=== PATIENT | female | born 1940 | race Caucasian/White ===

== ENCOUNTER 2020-06-12 11:43 | Outpatient (REF) | payer MEDICARE, SELFPAY | END 2020-06-12 11:44 | disposition home or self-care (01) | LOC: HO.LNP 11:43 | PROVIDERS: Visit Provider Nurse Practitioner Family | DX: R30.0 Dysuria (principal) | CPT/HCPCS: 87086 ==

== ENCOUNTER 2020-07-23 08:45 | Outpatient (REF) | payer MEDICARE, SELFPAY ==
[2020-07-23 11:44] LABS: Alanine Aminotransferase 9 U/L (0-31); Albumin Level 4.4 g/dL (3.5-5.0); Alkaline Phosphatase 75 U/L (39-117); Anion Gap 14 (12-20); Aspartate Amino Transferase 20 U/L (5-31); Bilirubin Total 0.7 mg/dL (0.0-1.0); Blood Urea Nitrogen 26 mg/dL (9-16); Calcium 9.8 mg/dL (8.4-10.2); Carbon Dioxide 23 mmol/L (22-29); Chloride 102 mmol/L (96-108); Estimated Glomerular Filt Rate 59; Glucose Random 104 mg/dL (60-115); Potassium 4.5 mmol/l (3.3-5.1); Sodium 134 mmol/L (135-145); Total Protein 8.1 g/dL (6.5-8.0)
[2020-07-23 12:06] LABS: Estimated Average Glucose 143 mg/dL; Hemoglobin A1c % 6.6 %
[2020-07-23 12:07] LABS: TSH reflex Free T4 1.96 mIU/mL (0.32-4.0)
== END 2020-07-23 08:46 | disposition home or self-care (01) ==
LOC: HO.HMGCLDS 08:45
PROVIDERS: PCP Internal Medicine; Visit Provider Internal Medicine
DX: R30.0 Dysuria (principal)
CPT/HCPCS: 80053; 83036; 84443

== ENCOUNTER 2020-07-28 10:48 | Outpatient (REF) | payer MEDICARE, SELFPAY ==
--- NOTE | 2020-07-28 | MM_ITS ---
EXAMINATION: MM DIAGNOSTIC DIGITAL BREAST TOMOSYNTHESIS, BILATERAL US DIAGNOSTIC ULTRASOUND BREAST, RIGHT CLINICAL INFORMATION: Due for yearly exam. Probable benign small septated cyst anterior right breast for follow-up. Age 80. No known family history breast cancer. The lifetime risk of breast cancer based on the Tyrer-Cuzick Model is 2%. COMPARISON: Mammography: 07/23/2019, 01/18/2019, 07/20/2018 (BI-RADS 0), 07/14/2017; targeted right breast ultrasound 08/01/2018, 01/18/2019, 07/23/2019. TECHNIQUE: Digital breast tomosynthesis is performed in both the craniocaudal and mediolateral oblique views along with computer-aided detection (CAD). Synthesized 2D images are generated from the tomosynthesis. Additional bilateral CC views are provided. Ultrasound right breast is targeted to the anterior upper outer breast. Grayscale imaging and color Doppler are performed without and with harmonics. FINDINGS: There are scattered areas of fibroglandular density (ACR BI-RADS breast composition Category b). Breast tissue composition borders on predominantly fatty. There is no developing density or interval mass or architectural abnormality. Small nodule anterior lateral right breast is stable since 2017. There are no abnormal calcifications. The skin contours are smooth. Ultrasound right breast shows small benign cyst with fine avascular internal septation measuring under 5 mm. There is no interval solid component or color flow. Finding is now considered benign. Results are discussed with the patient at time of visit. MM/MM tomosynthesis diagnostic BI IMPRESSION: 1. No mammographic evidence of malignancy. No significant changes from prior studies. 2. Small septated cyst anterior right breast under 5 mm, stable and considered benign. ASSESSMENT: BI-RADS 2: Benign RECOMMENDATION: Routine annual mammography screening. This patient's information was entered into a reminder system with a target due date for their next mammogram.
== END 2020-07-28 10:49 | disposition home or self-care (01) ==
LOC: HO.MAMMO 10:48
PROVIDERS: PCP Internal Medicine; Visit Provider Internal Medicine
DX: N63.11 Unspecified lump in the right breast, upper outer quadrant (principal); N60.01 Solitary cyst of right breast
CPT/HCPCS: 76642; 77062; 77066

== ENCOUNTER 2020-11-12 09:19 | Outpatient (REF) | payer MEDICARE, SELFPAY ==
[2020-11-12 11:42] LABS: Alanine Aminotransferase 11 U/L (0-31); Albumin Level 4.5 g/dL (3.5-5.0); Alkaline Phosphatase 74 U/L (39-117); Anion Gap 16 (12-20); Aspartate Amino Transferase 21 U/L (5-31); Bilirubin Total 0.6 mg/dL (0.0-1.0); Blood Urea Nitrogen 23 mg/dL (9-16); Calcium 9.9 mg/dL (8.4-10.2); Carbon Dioxide 24 mmol/L (22-29); Chloride 103 mmol/L (96-108); Estimated Glomerular Filt Rate > 60; Glucose Fasting 111 mg/dL (60-99); Potassium 4.6 mmol/L (3.3-5.1); Sodium 138 mmol/L (135-145); Total Protein 8.2 g/dL (6.5-8.0)
[2020-11-12 12:02] LABS: Vitamin D 25-OH Total 39.6 ng/mL (>30)
== END 2020-11-12 09:20 | disposition home or self-care (01) ==
LOC: HO.HMGCLDS 09:19
PROVIDERS: PCP Internal Medicine; Visit Provider Internal Medicine Endocrinology, Diabetes & Metabolism
DX: M81.6 Localized osteoporosis [Lequesne] (principal)
CPT/HCPCS: 36415; 80053; 82306

== ENCOUNTER 2020-11-13 | Outpatient (REF) | payer MEDICARE, SELFPAY ==
[2020-11-18 21:51] LABS: N-Telopeptide 19 (see note); NTXCreaRU 48 mg/dL (20-275)
== END 2020-11-13 00:01 | disposition home or self-care (01) ==
LOC: HO.HMGCLNP
PROVIDERS: Visit Provider Internal Medicine Endocrinology, Diabetes & Metabolism
DX: M81.6 Localized osteoporosis [Lequesne] (principal)
CPT/HCPCS: 82523

== ENCOUNTER → 2020-11-21 08:39 | Outpatient (BNVA) | payer MEDICARE, SELFPAY | PROVIDERS: PCP Internal Medicine; Visit Provider Internal Medicine Endocrinology, Diabetes & Metabolism | DX: M81.0 Age-related osteoporosis without current pathological fracture (principal); E21.3 Hyperparathyroidism, unspecified | CPT/HCPCS: 99212 ==

== ENCOUNTER 2020-11-26 08:49 | Outpatient (REF) | payer MEDICARE, SELFPAY ==
[2020-11-26 11:46] LABS: Estimated Average Glucose 120 mg/dL; Hemoglobin A1c % 5.8 %
[2020-11-26 11:54] LABS: Creatinine Urine 100.68 mg/dL; Microalbum/Creatinine Ratio Ur 14.8 ug/mg cr
[2020-11-26 12:03] LABS: Alanine Aminotransferase 7 U/L (0-31); Albumin Level 4.5 g/dL (3.5-5.0); Alkaline Phosphatase 67 U/L (39-117); Anion Gap 19 (12-20); Aspartate Amino Transferase 22 U/L (5-31); Bilirubin Direct 0.3 mg/dL (0.0-0.5); Bilirubin Total 0.9 mg/dL (0.0-1.0); Blood Urea Nitrogen 25 mg/dL (9-16); Calcium 10.2 mg/dL (8.4-10.2); Carbon Dioxide 23 mmol/L (22-29); Chloride 102 mmol/L (96-108); Cholesterol 194 mg/dL; Estimated Glomerular Filt Rate > 60; Glucose Fasting 98 mg/dL (60-99); HDL Cholesterol 47 mg/dL; LDL Cholesterol Calculated 125 mg/dl; Potassium 4.6 mmol/L (3.3-5.1); Sodium 139 mmol/L (135-145); Total Protein 8.1 g/dL (6.5-8.0); Triglycerides 114 mg/dL
[2020-11-26 12:08] LABS: TSH reflex Free T4 1.74 uIU/mL (0.32-4.0)
== END 2020-11-26 08:50 | disposition home or self-care (01) ==
LOC: HO.HMGCLDS 08:49
PROVIDERS: PCP Internal Medicine; Visit Provider Internal Medicine
DX: E03.9 Hypothyroidism, unspecified (principal); E13.9 Other specified diabetes mellitus without complications; E78.9 Disorder of lipoprotein metabolism, unspecified; I10 Essential (primary) hypertension
CPT/HCPCS: 36415; 80048; 80061; 80076; 82043; 83036; 84443

== ENCOUNTER 2021-05-21 11:21 | Outpatient (REF) | payer MEDICARE, SELFPAY ==
[2021-05-21 14:26] LABS: Albumin Level 4.3 g/dL (3.5-5.0); Calcium 9.9 mg/dL (8.4-10.2)
[2021-05-21 14:42] LABS: Vitamin D 25-OH Total 34.8 ng/mL (>30)
[2021-05-25 14:02] LABS: Calcium (PTHI) 9.9 mg/dL (8.6-10.4); PTHI 90 pg/mL (14-64)
== END 2021-05-21 11:22 | disposition home or self-care (01) ==
LOC: HO.HMGCLDS 11:21
PROVIDERS: PCP Internal Medicine; Visit Provider Internal Medicine Endocrinology, Diabetes & Metabolism
DX: M81.0 Age-related osteoporosis without current pathological fracture (principal)
CPT/HCPCS: 36415; 82040; 82306; 82310; 83970

== ENCOUNTER 2021-05-22 | Outpatient (REF) | payer MEDICARE, SELFPAY ==
[2021-05-27 15:01] LABS: N-Telopeptide 11 (see note); NTXCreaRU 43 mg/dL (20-275)
== END 2021-05-22 00:01 | disposition home or self-care (01) ==
LOC: HO.HMGCLNP
PROVIDERS: Visit Provider Internal Medicine Endocrinology, Diabetes & Metabolism
DX: M81.0 Age-related osteoporosis without current pathological fracture (principal)
CPT/HCPCS: 82523

== ENCOUNTER 2021-06-10 07:47 | Outpatient (REF) | payer MEDICARE, SELFPAY ==
[2021-06-10 11:49] LABS: Alanine Aminotransferase 10 U/L (0-31); Albumin Level 4.4 g/dL (3.5-5.0); Alkaline Phosphatase 66 U/L (39-117); Anion Gap 14 (12-20); Aspartate Amino Transferase 22 U/L (5-31); Blood Urea Nitrogen 22 mg/dL (9-16); Calcium 10.1 mg/dL (8.4-10.2); Carbon Dioxide 25 mmol/L (22-29); Chloride 106 mmol/L (96-108); Estimated Glomerular Filt Rate 56; Glucose Random 106 mg/dL (60-115); Potassium 5.2 mmol/L (3.3-5.1); Sodium 140 mmol/L (135-145); Total Protein 8.1 g/dL (6.5-8.0)
[2021-06-10 12:05] LABS: Creatinine Urine 65.89 mg/dL; Microalbum/Creatinine Ratio Ur 12.1 ug/mg cr
[2021-06-10 12:11] LABS: TSH reflex Free T4 3.05 uIU/mL (0.32-4.0)
[2021-06-10 12:21] LABS: Estimated Average Glucose 111 mg/dL; Hemoglobin A1c % 5.5 %
== END 2021-06-10 07:48 | disposition home or self-care (01) ==
LOC: HO.HMGCLDS 07:47
PROVIDERS: PCP Internal Medicine; Visit Provider Internal Medicine
DX: E03.9 Hypothyroidism, unspecified (principal); R03.0 Elevated blood-pressure reading, without diagnosis of hypertension; E13.9 Other specified diabetes mellitus without complications; R30.0 Dysuria
CPT/HCPCS: 36415; 80053; 82043; 83036; 84443; 87086

== ENCOUNTER 2021-08-05 07:41 | Outpatient (REF) | payer MEDICARE, SELFPAY ==
[2021-08-05 11:52] LABS: Alanine Aminotransferase 10 U/L (0-31); Albumin Level 4.4 g/dL (3.5-5.0); Alkaline Phosphatase 74 U/L (39-117); Anion Gap 18 (12-20); Aspartate Amino Transferase 24 U/L (5-31); Bilirubin Total 0.6 mg/dL (0.0-1.0); Blood Urea Nitrogen 27 mg/dL (9-16); Calcium 10.3 mg/dL (8.4-10.2); Carbon Dioxide 21 mmol/L (22-29); Chloride 104 mmol/L (96-108); Estimated Glomerular Filt Rate 53; Glucose Random 118 mg/dL (60-115); Potassium 5.1 mmol/L (3.3-5.1); Sodium 138 mmol/L (135-145); Total Protein 8.2 g/dL (6.5-8.0)
== END 2021-08-05 07:42 | disposition home or self-care (01) ==
LOC: HO.HMGCLDS 07:41
PROVIDERS: PCP Internal Medicine; Visit Provider Internal Medicine
DX: M81.0 Age-related osteoporosis without current pathological fracture (principal); E21.3 Hyperparathyroidism, unspecified; E55.9 Vitamin D deficiency, unspecified
CPT/HCPCS: 36415; 80053; 99212

== ENCOUNTER 2021-08-12 10:30 | Outpatient (REF) | payer MEDICARE, SELFPAY ==
--- NOTE | ~2021-08-12 | MM_ITS ---
EXAMINATION: MM SCREENING DIGITAL BREAST TOMOSYNTHESIS, BILATERAL CLINICAL INFORMATION: Screening. Asymptomatic. The lifetime risk of breast cancer based on the Tyrer-Cuzick Model is 1.1%. COMPARISON: Mammography: July 28, 2020 and studies dating back to June 19, 2012 TECHNIQUE: Digital breast tomosynthesis is performed in both the craniocaudal and mediolateral oblique views along with computer-aided detection (CAD). Synthesized 2D images are generated from the tomosynthesis. FINDINGS: There are scattered areas of fibroglandular density (ACR BI-RADS breast composition Category b). There are no significant masses, abnormal calcifications, or other abnormalities. MM/MM tomosynthesis screening BI IMPRESSION: There are no significant changes from prior study. ASSESSMENT: BI-RADS 1: Negative RECOMMENDATION: Routine annual mammography screening. This patient's information was entered into a reminder system with a target due date for their next mammogram.
== END 2021-08-12 10:31 | disposition home or self-care (01) ==
LOC: HO.MAMMO 10:30
PROVIDERS: Visit Provider Internal Medicine
DX: Z12.31 Encounter for screening mammogram for malignant neoplasm of breast (principal)
CPT/HCPCS: 77063; 77067

== ENCOUNTER 2021-10-14 07:59 | Outpatient (REF) | payer MEDICARE, SELFPAY ==
--- NOTE | ~2021-10-14 | MM_ITS ---
EXAMINATION: BONE DENSITOMETRY CLINICAL INDICATION: Hyperparathyroidism. COMPARISON: Previous BD dated 10/16/2019 and baseline BD dated 09/02/2009. TECHNIQUE: Using a [employer] DXA System (software version: 13.1) manufactured by [employer], dual-energy x-ray absorptiometry was performed of the lumbar spine, left hip, and left forearm radius 33%. The images are of good technical quality. Summary results are attached. FINDINGS: AP SPINE L1-L4: There is dextrocurvature lumbar spine and multilevel degenerative changes which may cause overestimation of the lumbar bone mineral density. Current: BMD 1.531 g/cm2, Z-score 4.8, T-score 2.9, normal, 0.8% decrease from previous, 8.0% increase from baseline (<5% change is not significant). Prior: BMD 1.543 g/cm2. Baseline: BMD 1.418 g/cm2. LEFT FEMUR, NECK: Current: BMD 0.853 g/cm2, Z-score 0.9, T-score -1.3, osteopenia. Prior: BMD 0.972 g/cm2. Baseline: BMD 0.872 g/cm2. LEFT FEMUR, TOTAL: Current: BMD 0.879 g/cm2, Z-score 1.0, T-score -1.0, normal, 15.2% decrease from previous, 16.4% decrease from baseline (<5% change is not significant). Prior: BMD 1.037 g/cm2. Baseline: BMD 1.051 g/cm2. LEFT FOREARM RADIUS 33%: BMD 0.686 g/cm2, Z-score 0.7, T-score -2.2, osteopenia, 0.4% increase from previous, 6.2% decrease from baseline (<5% change is not significant). Prior: BMD 0.683 g/cm2. Baseline 10/05/2013: BMD 0.731 g/cm2. IDENTIFIED RISK FACTORS: Menopause, height loss, hyperparathyroidism, osteoporosis. HISTORY OF FRACTURE: None listed. MEDICATIONS: Bisphosphonates. MM/XR DEXA appendicular skeleton IMPRESSION: 1. DIAGNOSIS: Osteopenia based on the lowest T-score value of -2.2 in the forearm radius 33% applying World Health Organization criteria. 2. 10-YEAR FRACTURE RISK PREDICTION, FRAX: Major osteoporotic fracture (clinical spine, forearm, hip or shoulder) 12.4%. Hip fracture 2.9%. 3. Treatment Recommendations: NOF guidelines recommend consideration for treatment in postmenopausal women and men age 50 and older presenting with the following: -A hip or vertebral (clinical or morphometric) fracture. -T-score less than or equal to -2.5 at the femoral neck or spine after appropriate evaluation to exclude secondary causes. -Low bone mass at the hip or spine and a 10-year fracture probability by FRAX of greater than or equal to 3% for hip fracture or greater than or equal to 20% for major osteoporotic fracture based on the [place] adapted WHO algorithm. 4. Other Recommendations: All treatment decisions require clinical judgment and consideration of individual patient factors, including patient preferences, comorbidities, previous drug use, risk factors not captured in the FRAX model (e.g. frailty, falls, vitamin D deficiency, increased bone turnover, interval significant decline in bone density) and possible under or overestimation of fracture risk by FRAX. Additional medical evaluation for secondary cause of low bone mineral density may be appropriate. FUTURE SCAN RECOMMENDATION: People with diagnosed cases of osteoporosis or at high risk for fracture should have regular bone mineral density tests. For patients eligible for Medicare, routine testing is allowed once every 2 years. The testing frequency can be increased to one year for patients who have rapidly progressing disease, those who are receiving or discontinuing medical therapy to restore bone mass, or have additional risk factors.
== END 2021-10-14 08:00 | disposition home or self-care (01) ==
LOC: HO.MAMMO 07:59
PROVIDERS: Visit Provider Internal Medicine
DX: Z13.820 Encounter for screening for osteoporosis (principal); E21.3 Hyperparathyroidism, unspecified; M85.80 Other specified disorders of bone density and structure, unspecified site; Z78.0 Asymptomatic menopausal state; Z79.899 Other long term (current) drug therapy
CPT/HCPCS: 77081

== ENCOUNTER 2021-11-13 09:12 | Outpatient (REF) | payer MEDICARE, SELFPAY ==
[2021-11-13 11:37] LABS: MANUAL DIFF FLAG NO
[2021-11-13 11:48] LABS: Basophils Percent Auto 0.4 % (0-2); Eosinophils Absolute Auto 0.3 X10*3/uL (0.0-0.4); Eosinophils Percent Auto 2.8 % (0-4); Hematocrit 43.6 % (37.0-47.0); Hemoglobin 13.6 g/dl (12.0-16.0); Imm Gran Abs Auto 0.03 X10*3/uL (0.00-0.03); Imm Gran Pct Auto 0.3 % (0.0-0.4); Lymphocytes Absolute Auto 4.1 X10*3/uL (1.2-4.9); Lymphocytes Percent Auto 45.1 % (20-40); Mean Corpuscular HGB Conc 31.2 g/dl (31.0-35.0); Mean Corpuscular Hemoglobin 28.1 pg (27.0-33.0); Mean Corpuscular Volume 90.1 fL (80.0-98.0); Mean Platelet Volume 10.5 fL (9.4-12.3); Monocytes Absolute Auto 0.9 X10*3/uL (0.1-1.2); Monocytes Percent Auto 9.5 % (2-11); Neutrophils Absolute Auto 3.8 x10*3/uL (2.0-8.3); Neutrophils Percent Auto 41.9 % (45-73); Platelet Count 287 X10*3/uL (160-400); Red Blood Count 4.84 X10*6/uL (4.20-5.50); Red Cell Distribution Width 13.2 % (11.0-16.0)
[2021-11-13 12:20] LABS: Alanine Aminotransferase 7 U/L (0-31); Albumin Level 4.4 g/dL (3.5-5.0); Alkaline Phosphatase 66 U/L (39-117); Anion Gap 16 (12-20); Aspartate Amino Transferase 25 U/L (5-31); Blood Urea Nitrogen 25 mg/dL (9-16); Calcium 10.6 mg/dL (8.4-10.2); Carbon Dioxide 23 mmol/L (22-29); Chloride 105 mmol/L (96-108); Estimated Glomerular Filt Rate 58; Glucose Random 98 mg/dL (60-115); Potassium 5.3 mmol/L (3.3-5.1); Sodium 139 mmol/L (135-145); Total Protein 8.2 g/dL (6.5-8.0)
[2021-11-13 12:36] LABS: Estimated Average Glucose 120 mg/dL; Hemoglobin A1c % 5.8 %
[2021-11-13 12:43] LABS: TSH reflex Free T4 2.04 uIU/mL (0.32-4.0)
[2021-11-14 16:20] LABS: LDL Cholesterol Direct 143 mg/dL (<100)
== END 2021-11-13 09:13 | disposition home or self-care (01) ==
LOC: HO.HMGCLDS 09:12
PROVIDERS: PCP Internal Medicine; Visit Provider Internal Medicine
DX: E03.9 Hypothyroidism, unspecified (principal); E13.9 Other specified diabetes mellitus without complications; E78.9 Disorder of lipoprotein metabolism, unspecified; I10 Essential (primary) hypertension
CPT/HCPCS: 36415; 80053; 83036; 83721; 84443; 85025

== ENCOUNTER 2021-11-14 06:43 | Outpatient (REF) | payer MEDICARE, SELFPAY ==
[2021-11-14 11:44] LABS: Creatinine Urine 39.74 mg/dL; Microalbum/Creatinine Ratio Ur 42.7 ug/mg cr
[2021-11-20 09:51] LABS: N-Telopeptide 11 (see note); NTXCreaRU 43 mg/dL (20-275)
== END 2021-11-14 06:44 | disposition home or self-care (01) ==
LOC: HO.HMGCLNP 06:43
PROVIDERS: Internal Medicine; Visit Provider Internal Medicine
DX: E03.9 Hypothyroidism, unspecified (principal); E13.9 Other specified diabetes mellitus without complications; E78.9 Disorder of lipoprotein metabolism, unspecified; I10 Essential (primary) hypertension; M81.0 Age-related osteoporosis without current pathological fracture
CPT/HCPCS: 82043; 82523

== ENCOUNTER 2022-01-29 06:45 | Outpatient (REF) | payer MEDICARE, SELFPAY ==
[2022-01-29 12:02] LABS: Estimated Average Glucose 117 mg/dL; Hemoglobin A1c % 5.7 %
[2022-01-29 12:07] LABS: Vitamin D 25-OH Total 32.9 ng/mL (>30)
[2022-01-29 12:10] LABS: Alanine Aminotransferase 11 U/L (0-31); Albumin Level 4.3 g/dL (3.5-5.0); Alkaline Phosphatase 68 U/L (39-117); Anion Gap 13 (12-20); Aspartate Amino Transferase 24 U/L (5-31); Bilirubin Total 0.8 mg/dL (0.0-1.0); Blood Urea Nitrogen 25 mg/dL (9-16); Calcium 10.5 mg/dL (8.4-10.2); Carbon Dioxide 24 mmol/L (22-29); Chloride 105 mmol/L (96-108); Estimated Glomerular Filt Rate 56; Glucose Random 108 mg/dL (60-115); Phosphorus 3.8 mg/dL (2.7-4.5); Potassium 4.8 mmol/L (3.3-5.1); Sodium 137 mmol/L (135-145); Total Protein 8.1 g/dL (6.5-8.0)
[2022-02-02 11:12] LABS: Alkaline Phosphatase Bone 8.6 mcg/L (see note)
[2022-02-03 22:31] LABS: Calcium (PTHI) 10.6 mg/dL (8.6-10.4); PTHI 80 pg/mL (16-77)
== END 2022-01-29 06:46 | disposition home or self-care (01) ==
LOC: HO.HMGCLDS 06:45
PROVIDERS: PCP Internal Medicine; Visit Provider Internal Medicine
DX: E87.5 Hyperkalemia (principal); I10 Essential (primary) hypertension; E13.9 Other specified diabetes mellitus without complications; E21.3 Hyperparathyroidism, unspecified; M81.0 Age-related osteoporosis without current pathological fracture; E55.9 Vitamin D deficiency, unspecified; E78.9 Disorder of lipoprotein metabolism, unspecified
CPT/HCPCS: 36415; 80053; 82306; 83036; 83970; 84075; 84100

== ENCOUNTER → 2022-02-03 13:15 | Outpatient (BNVA) | payer MEDICARE, SELFPAY | PROVIDERS: PCP Internal Medicine; Visit Provider Internal Medicine | DX: M81.0 Age-related osteoporosis without current pathological fracture (principal); E21.3 Hyperparathyroidism, unspecified; E55.9 Vitamin D deficiency, unspecified | CPT/HCPCS: Q3014 ==

== ENCOUNTER 2022-06-23 11:05 | Outpatient (REF) | payer MEDICARE, SELFPAY ==
[2022-06-23 14:08] LABS: Estimated Average Glucose 117 mg/dL; Hemoglobin A1c % 5.7 %
[2022-06-23 14:19] LABS: Alanine Aminotransferase 10 U/L (0-31); Albumin Level 4.5 g/dL (3.5-5.0); Alkaline Phosphatase 68 U/L (39-117); Anion Gap 20 (12-20); Aspartate Amino Transferase 27 U/L (5-31); Bilirubin Total 0.8 mg/dL (0.0-1.0); Blood Urea Nitrogen 26 mg/dL (9-16); Calcium 10.2 mg/dL (8.4-10.2); Carbon Dioxide 20 mmol/L (22-29); Chloride 102 mmol/L (96-108); Estimated Glomerular Filt Rate 54; Glucose Random 108 mg/dL (60-115); Potassium 4.8 mmol/L (3.3-5.1); Sodium 137 mmol/L (135-145); Total Protein 8.1 g/dL (6.5-8.0)
[2022-06-23 14:29] LABS: TSH reflex Free T4 2.75 uIU/mL (0.32-4.0)
== END 2022-06-23 11:06 | disposition home or self-care (01) ==
LOC: HO.HMGCLDS 11:05
PROVIDERS: PCP Internal Medicine; Visit Provider Internal Medicine
DX: I12.9 Hypertensive chronic kidney disease with stage 1 through stage 4 chronic kidney disease, or unspecified chronic kidney disease (principal); N18.9 Chronic kidney disease, unspecified; E03.9 Hypothyroidism, unspecified; E13.9 Other specified diabetes mellitus without complications; E21.3 Hyperparathyroidism, unspecified; E78.9 Disorder of lipoprotein metabolism, unspecified
CPT/HCPCS: 36415; 80053; 83036; 84443

== ENCOUNTER 2022-07-28 08:20 | Outpatient (REF) | payer MEDICARE, SELFPAY ==
[2022-07-28 13:37] LABS: Alanine Aminotransferase 9 U/L (0-31); Albumin Level 4.5 g/dL (3.5-5.0); Alkaline Phosphatase 70 U/L (39-117); Anion Gap 15 (12-20); Aspartate Amino Transferase 22 U/L (5-31); Blood Urea Nitrogen 29 mg/dL (9-16); Calcium 10.1 mg/dL (8.4-10.2); Carbon Dioxide 22 mmol/L (22-29); Chloride 103 mmol/L (96-108); Estimated Glomerular Filt Rate 58; Glucose Random 114 mg/dL (60-115); Phosphorus 3.5 mg/dL (2.7-4.5); Potassium 4.4 mmol/L (3.3-5.1); Sodium 136 mmol/L (135-145); Total Protein 8.3 g/dL (6.5-8.0)
[2022-07-30 13:06] LABS: Calcium (PTHI) 9.8 mg/dL (8.6-10.4); PTHI 89 pg/mL (16-77)
[2022-08-02 14:07] LABS: Alkaline Phosphatase Bone 9.6 mcg/L (see note)
[2022-08-04 07:58] LABS: N-Telopeptide 12 (see note); NTXCreaRU 36 mg/dL (20-275)
== END 2022-07-28 08:21 | disposition home or self-care (01) ==
LOC: HO.HMGCLDS 08:20
PROVIDERS: PCP Internal Medicine; Visit Provider Internal Medicine
DX: M81.0 Age-related osteoporosis without current pathological fracture (principal); E55.9 Vitamin D deficiency, unspecified
CPT/HCPCS: 36415; 80053; 82306; 82523; 83970; 84075; 84100

== ENCOUNTER → 2022-08-05 14:46 | Outpatient (BNVA) | payer MEDICARE, SELFPAY | PROVIDERS: PCP Internal Medicine; Visit Provider Internal Medicine | DX: M81.0 Age-related osteoporosis without current pathological fracture (principal); E21.3 Hyperparathyroidism, unspecified; E55.9 Vitamin D deficiency, unspecified | CPT/HCPCS: 99212 ==

== ENCOUNTER 2022-08-17 07:25 | Outpatient (REF) | payer MEDICARE, SELFPAY ==
--- NOTE | ~2022-08-17 | MM_ITS ---
EXAMINATION: MM SCREENING DIGITAL BREAST TOMOSYNTHESIS, BILATERAL CLINICAL INFORMATION: Screening. Asymptomatic. The lifetime risk of breast cancer based on the Tyrer-Cuzick Model is 1.4%. COMPARISON: Mammography: August 12, 2021 and studies dating back to July 12, 2016 TECHNIQUE: Digital breast tomosynthesis is performed in both the craniocaudal and mediolateral oblique views along with computer-aided detection (CAD). Synthesized 2D images are generated from the tomosynthesis. FINDINGS: There are scattered areas of fibroglandular density (ACR BI-RADS breast composition Category b). There are no significant masses, abnormal calcifications, or other abnormalities. MM/MM tomosynthesis screening BI IMPRESSION: No significant changes from prior exam. ASSESSMENT: BI-RADS 1: Negative RECOMMENDATION: Routine annual mammography screening. This patient's information was entered into a reminder system with a target due date for their next mammogram.
== END 2022-08-17 07:26 | disposition home or self-care (01) ==
LOC: HO.MAMMO 07:25
PROVIDERS: PCP Internal Medicine; Visit Provider Internal Medicine
DX: Z12.31 Encounter for screening mammogram for malignant neoplasm of breast (principal)
CPT/HCPCS: 77063; 77067

== ENCOUNTER 2023-02-03 07:40 | Outpatient (REF) | payer MEDICARE, SELFPAY ==
[2023-02-03 11:50] LABS: Alanine Aminotransferase 10 U/L (0-31); Albumin Level 4.3 g/dL (3.5-5.0); Alkaline Phosphatase 67 U/L (39-117); Anion Gap 13 (12-20); Aspartate Amino Transferase 22 U/L (5-31); Blood Urea Nitrogen 23 mg/dL (9-16); Calcium 10.1 mg/dL (8.4-10.2); Carbon Dioxide 25 mmol/L (22-29); Chloride 106 mmol/L (96-108); Estimated Glomerular Filt Rate 60; Glucose Random 105 mg/dL (60-115); Phosphorus 3.2 mg/dL (2.7-4.5); Potassium 4.9 mmol/L (3.3-5.1); Sodium 139 mmol/L (135-145); Total Protein 7.9 g/dL (6.5-8.0)
[2023-02-03 11:56] LABS: Vitamin D 25-OH Total 40.4 ng/mL (>30)
[2023-02-07 14:18] LABS: PTHI 89 pg/mL (16-77)
== END 2023-02-03 07:41 | disposition home or self-care (01) ==
LOC: HO.HMGCLDS 07:40
PROVIDERS: PCP Internal Medicine; Visit Provider Internal Medicine
DX: M81.0 Age-related osteoporosis without current pathological fracture (principal); E55.9 Vitamin D deficiency, unspecified
CPT/HCPCS: 36415; 80053; 82306; 83970; 84100

== ENCOUNTER → 2023-02-07 08:17 | Outpatient (BNVA) | payer MEDICARE, SELFPAY | PROVIDERS: PCP Internal Medicine; Visit Provider Internal Medicine | DX: M81.0 Age-related osteoporosis without current pathological fracture (principal); E21.3 Hyperparathyroidism, unspecified; E55.9 Vitamin D deficiency, unspecified | CPT/HCPCS: 99212 ==

== ENCOUNTER 2023-02-17 07:15 | Outpatient (REF) | payer MEDICARE, SELFPAY ==
[2023-02-17 09:09] LABS: MANUAL DIFF FLAG NO
[2023-02-17 09:22] LABS: Basophils Percent Auto 0.4 % (0-2); Eosinophils Absolute Auto 0.3 X10*3/uL (0.0-0.4); Eosinophils Percent Auto 3.2 % (0-4); Hematocrit 43.1 % (37.0-47.0); Hemoglobin 13.7 g/dl (12.0-16.0); Imm Gran Abs Auto 0.02 X10*3/uL (0.00-0.03); Imm Gran Pct Auto 0.2 % (0.0-0.4); Mean Corpuscular HGB Conc 31.8 g/dl (31.0-35.0); Mean Corpuscular Hemoglobin 28.3 pg (27.0-33.0); Mean Platelet Volume 9.7 fL (9.4-12.3); Monocytes Absolute Auto 0.9 X10*3/uL (0.1-1.2); Monocytes Percent Auto 10.1 % (2-11); Neutrophils Absolute Auto 3.8 x10*3/uL (2.0-8.3); Neutrophils Percent Auto 42.1 % (45-73); Platelet Count 302 X10*3/uL (160-400); Red Blood Count 4.84 X10*6/uL (4.20-5.50)
[2023-02-17 09:28] LABS: Estimated Average Glucose 114 mg/dL; Hemoglobin A1c % 5.6 %
[2023-02-17 10:52] LABS: Creatinine Urine 91.72 mg/dL; Microalbum/Creatinine Ratio Ur 18.5 ug/mg cr
[2023-02-21 01:54] LABS: LDL Cholesterol Direct 134 mg/dL (<100)
== END 2023-02-17 07:16 | disposition home or self-care (01) ==
LOC: HO.HMGCLDS 07:15
PROVIDERS: PCP Internal Medicine; Visit Provider Internal Medicine
DX: I12.9 Hypertensive chronic kidney disease with stage 1 through stage 4 chronic kidney disease, or unspecified chronic kidney disease (principal); E13.22 Other specified diabetes mellitus with diabetic chronic kidney disease; N18.9 Chronic kidney disease, unspecified; E78.9 Disorder of lipoprotein metabolism, unspecified; E21.3 Hyperparathyroidism, unspecified; E03.9 Hypothyroidism, unspecified; H91.90 Unspecified hearing loss, unspecified ear
CPT/HCPCS: 36415; 82043; 83036; 83721; 85025

== ENCOUNTER 2023-06-23 07:31 | Outpatient (REF) | payer MEDICARE, SELFPAY ==
[2023-06-23 12:43] LABS: TSH reflex Free T4 3.63 uIU/mL (0.32-4.0)
[2023-06-23 12:54] LABS: Anion Gap 15 (12-20)
[2023-06-23 12:58] LABS: Alanine Aminotransferase 10 U/L (0-31); Albumin Level 4.5 g/dL (3.5-5.0); Alkaline Phosphatase 66 U/L (39-117); Aspartate Amino Transferase 25 U/L (5-31); Bilirubin Total 0.8 mg/dL (0.0-1.0); Blood Urea Nitrogen 21 mg/dL (9-16); Calcium 10.8 mg/dL (8.4-10.2); Carbon Dioxide 25 mmol/L (22-29); Chloride 103 mmol/L (96-108); Estimated Glomerular Filt Rate 59; Glucose Random 104 mg/dL (60-115); Potassium 4.8 mmol/L (3.3-5.1); Sodium 138 mmol/L (135-145); Total Protein 8.6 g/dL (6.5-8.0)
[2023-06-24 18:32] LABS: LDL Cholesterol Direct 138 mg/dL (<100)
== END 2023-06-23 07:32 | disposition home or self-care (01) ==
LOC: HO.HMGCLDS 07:31
PROVIDERS: PCP Internal Medicine; Visit Provider Internal Medicine
DX: E78.9 Disorder of lipoprotein metabolism, unspecified (principal); E21.3 Hyperparathyroidism, unspecified; E03.9 Hypothyroidism, unspecified; E13.9 Other specified diabetes mellitus without complications; I12.9 Hypertensive chronic kidney disease with stage 1 through stage 4 chronic kidney disease, or unspecified chronic kidney disease; N18.9 Chronic kidney disease, unspecified; H91.90 Unspecified hearing loss, unspecified ear
CPT/HCPCS: 36415; 80053; 83721; 84443

== ENCOUNTER 2023-06-29 09:12 | Outpatient (AMB) | payer MEDICARE, SELFPAY ==
--- NOTE | 2023-06-29 09:13 | A.OFFPC_ITS ---
Vital Signs 06/29/23 09:14 Height 5 ft Weight 144 lb 6 oz BMI 28.2 BP 172/74 H Blood Pressure Location Lt brachial Position Sitting Pulse 90 Pulse Source Pulse Oximeter Pulse Oximetry (%) 98 Oxygen Delivery Method Room Air Intake Visit Reasons: 4 Month follow up Allergies amoxicillin Allergy (Unknown, Verified 06/29/23 09:17) rash lisinopril [Zestril] Allergy (Unknown, Verified 06/29/23 09:17) tongue swelling penicillin V Allergy (Unknown, Verified 06/29/23 09:17) rash Medication List - Last Reconciled 06/29/23 by Howard Johnson MD alendronate 70 mg PO QWEEK 90 days amlodipine 10 mg PO DAILY 90 days ascorbic acid (vitamin C) 1,000 mg PO DAILY aspirin 81 mg PO DAILY enalapril maleate 20 mg PO DAILY 90 days levothyroxine 75 mcg PO DAILY 90 days multivitamin 1 tab PO DAILY omega-3 fatty acids (Fish Oil Concentrate) 1,200 mg PO DAILY Tobacco use date assessed: 06/29/23 Fall risk assessment: No Falls in past year Last assessed Fall Risk: 06/29/23 Dental Screening Dental Screen Date: 06/29/23 Did you have a dental visit in the last 12 months?: No Did you have a dental problem in the last 6 months where you did not have access to dental care?: No Was dental information given to patient?: Patient has dentist HPI 4 Month follow up HPI Details 83-year-old female came in today for her regular 4 month follow-up appointment. Labs done recently reviewed White coat syndrome , but patient comes in to doctor's offices blood pressure is elevated She is monitoring blood pressure at home which is running with the reasonable controlled, we have calibrated her blood pressure machine as well. Hypertension: Patient is on enalapril 20 mg and amlodipine 10 mg. Patient is tolerating medication no side effects. Hearing difficulty: Patient has gotten her hearing aid she is doing well now Hyperparathyroidism management through endocrinology [facility], currently patient is on Fosamax through endocrinology Her calcium level continued to be elevated Hypothyroidism: Continue levothyroxine 75 mcg for hypothyroidism Diet-controlled diabetes, hemoglobin A1c is stable Kidney function stable, GFR is 59 last labs done this month Patient has appointment in October for follow-up [facility] Medical History Vitamin D deficiency Diabetes 1.5, managed as type 2 Hypothyroidism Hyperparathyroidism Osteoporosis Surgical History History of hip surgery Social History Housing: Apartment Alcohol intake: never Patient Tobacco Use Status: Never used Tobacco e-Cigarette/Vaping Use: Never Used service: No Current occupational status: retired Cognitive needs: No Hearing needs: No Vision needs: No Questionnaire PHQ-9 Over the last 2 weeks, how often have you been bothered by any of the following problems? 1. Little interest or pleasure in doing things: not at all 2. Feeling down, depressed, or hopeless: not at all 3. Trouble falling or staying asleep, or sleeping too much: not at all 4. Feeling tired or having little energy: not at all 5. Poor appetite or overeating: not at all 6. Feeling bad about yourself - or that you are a failure or have let yourself or your family down: not at all 7. Trouble concentrating on things, such as reading the newspaper or watching television: not at all 8. Moving or speaking so slowly that other people could have noticed. Or the opposite - being so fidgety or restless that you have been moving around a lot more than usual: not at all 9. Thoughts that you would be better off or of hurting yourself in some way: not at all Total score: 0 Depression Screening Interpretation: Negative Depression Screening Done: Yes 34533 - PHQ-9 Billing: Yes Source: Developed by Drs. Julio Cesar Betts, Jaison Cho and colleagues, with an educational zain from [employer]. Thrive Questionnaire Date Thrive assessed: 10/19/22 AUDIT C Alcohol Use Questionnaire (AUDIT-C) 1. How often do you have a drink containing alcohol?: Never 3. How often do you have six or more drinks on one occasion?: Never Total Score: 0 Score Reviewed/Action Taken: Yes DAVID-7 AMB Questionnaire DAVID-7 Date DAVID - 7 assessed: 10/19/22 Source: Developed by Drs. Julio Cesar Betts, Jaison Cho and colleagues, with an educational zain from [employer]. Review of Systems Const Denies chills, Denies excessive sweating, Denies fever(s) and Denies poor appetite Eyes Denies blurry vision and Denies eye pain ENT Denies disequilibrium, Denies sore throat, Denies throat swelling and Denies tongue swelling Card Denies chest pain at rest, Denies radiating jaw, neck or arm pain and Denies paroxysmal nocturnal dyspnea Resp Denies cough and Denies hemoptysis GI Denies melena, Denies change in stool character, Denies coffee ground emesis and Denies vomiting Musc Reports as per HPI Skin/Breast Reports as per HPI Neuro Denies tremor(s) and Denies disequilibrium Endo Denies cold intolerance and Denies excessive sweating Aller/Immun Denies throat swelling and Denies tongue swelling Physical exam (Primary Care) Vital Signs: Last Vital Signs Pulse 90 06/29/23 09:14 BP 172/74 H 06/29/23 09:14 Pulse Ox 98 06/29/23 09:14 Oxygen Delivery Method Room Air 06/29/23 09:14 BMI result Body Mass Index 28.2 Tobacco/Smoking Status: Tobacco use Status Tobacco use date assessed 06/29/23 06/29/23 09:18 Patient Tobacco Use Status Never used Tobacco 06/29/23 09:16 e-Cigarette/Vaping Use Never Used 06/29/23 09:16 Depression Screening Interpretation: Negative Thrive Assessment: Date of Thrive Assessment Date Thrive assessed 10/19/22 06/29/23 09:16 Const General: cooperative, comfortable and no acute distress Orientation/consciousness: patient oriented x3 HENMD Head: Yes normocephalic and Yes atraumatic Ears: hearing grossly normal bilaterally Eyes General: appearance normal, both eyes and all related structures Neck Neck: Yes no lymphadenopathy and No tracheal deviation Resp Effort & Inspection: normal respiratory effort, able to speak in complete sentences and no audible wheezes Cardio Rhythm: regular rhythm Heart sounds: S1 normal heart sound present and S2 normal heart sound present GI Palpation (GI): Soft to palpation and nontender Auscultation: normal bowel sounds Skin General skin exam: turgor normal Neuro General: patient oriented x3 and moves all extremities Gait exam (Neuro): Normal gait present Extrem Right lower extremity: no edema Left lower extremity: no edema Psych Affect: normal affect Attitude: cooperative Assessment and Plan Assessment & Plan (1) Diabetes 1.5, managed as type 2: Code(s): E13.9 - Other specified diabetes mellitus without complications (2) Hypertensive nephropathy: Code(s): I12.9 - Hypertensive chronic kidney disease with stage 1 through stage 4 chronic kidney disease, or unspecified chronic kidney disease (3) Hypertension, essential: Code(s): I10 - Essential (primary) hypertension (4) Hypothyroidism: Code(s): E03.9 - Hypothyroidism, unspecified Qualifiers: Hypothyroidism type: unspecified Qualified Code(s): E03.9 - Hypothyroidism, unspecified (5) Hyperparathyroidism: Code(s): E21.3 - Hyperparathyroidism, unspecified (6) Lipid disorder: Code(s): E78.9 - Disorder of lipoprotein metabolism, unspecified (7) Difficulty hearing: Code(s): H91.90 - Unspecified hearing loss, unspecified ear Qualifiers: Laterality: bilateral Qualified Code(s): H91.93 - Unspecified hearing loss, bilateral (8) White coat syndrome with diagnosis of hypertension: Code(s): I10 - Essential (primary) hypertension Plan 83-year-old female came in today for her regular 4 month follow-up appointment. Labs done recently reviewed White coat syndrome , but patient comes in to doctor's offices blood pressure is elevated She is monitoring blood pressure at home which is running with the reasonable controlled, we have calibrated her blood pressure machine as well. Hypertension: Patient is on enalapril 20 mg and amlodipine 10 mg. Patient is tolerating medication no side effects. Hearing difficulty: Patient has gotten her hearing aid she is doing well now Hyperparathyroidism management through endocrinology [facility], currently patient is on Fosamax through endocrinology Her calcium level continued to be elevated Hypothyroidism: Continue levothyroxine 75 mcg for hypothyroidism Diet-controlled diabetes, hemoglobin A1c is stable Kidney function stable, GFR is 59 last labs done this month Patient has appointment in October for follow-up Orders: Orders Hemoglobin A1c 3 Months E13.9 - Other specified diabetes mellitus without complications, E78.9 - Disorder of lipoprotein metabolism, unspecified, I10 - Essential (primary) hypertension Complete Blood Count Auto Diff 3 Months E13.9 - Other specified diabetes mellitus without complications, E78.9 - Disorder of lipoprotein metabolism, unspecified, I10 - Essential (primary) hypertension Comprehensive Met. Panel 3 Months E13.9 - Other specified diabetes mellitus without complications, E78.9 - Disorder of lipoprotein metabolism, unspecified, I10 - Essential (primary) hypertension Coding Level of Care Code Est Pt Level 4 (35360) Diagnoses Diabetes 1.5, managed as type 2 E13.9 Hypertensive nephropathy I12.9 Hypertension, essential I10 Hypothyroidism, unspecified type E03.9 Hypothyroidism type: unspecified Hyperparathyroidism E21.3 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 Hearing difficulty of both ears H91.93 Laterality: bilateral White coat syndrome with diagnosis of hypertension I10
[2023-06-29 09:14] VITALS: BP 172/74; PULSE 90; O2SAT 98; BMI 28.2
== END 2023-06-29 13:01 | disposition home or self-care (01) ==
PROVIDERS: PCP Internal Medicine; Visit Provider Internal Medicine
DX: E13.9 Other specified diabetes mellitus without complications (principal); E21.3 Hyperparathyroidism, unspecified; E03.9 Hypothyroidism, unspecified; I10 Essential (primary) hypertension; I12.9 Hypertensive chronic kidney disease with stage 1 through stage 4 chronic kidney disease, or unspecified chronic kidney disease; E78.9 Disorder of lipoprotein metabolism, unspecified; H91.93 Unspecified hearing loss, bilateral
CPT/HCPCS: 99214

== ENCOUNTER 2023-10-20 07:23 | Outpatient (REF) | payer MEDICARE, SELFPAY ==
[2023-10-20 11:37] LABS: MANUAL DIFF FLAG NO
[2023-10-20 11:55] LABS: Estimated Average Glucose 111 mg/dL; Hemoglobin A1c % 5.5 % (<6.0)
[2023-10-20 12:00] LABS: Basophils Absolute Auto 0.1 X10*3/uL (0.0-0.2); Basophils Percent Auto 0.5 % (0-2); Eosinophils Absolute Auto 0.3 X10*3/uL (0.0-0.4); Eosinophils Percent Auto 3.1 % (0-4); Hematocrit 41.5 % (37.0-47.0); Hemoglobin 13.4 g/dl (12.0-16.0); Imm Gran Abs Auto 0.03 X10*3/uL (0.00-0.03); Imm Gran Pct Auto 0.3 % (0.0-0.4); Lymphocytes Absolute Auto 3.8 X10*3/uL (1.2-4.9); Lymphocytes Percent Auto 39.8 % (20-40); Mean Corpuscular HGB Conc 32.3 g/dl (31.0-35.0); Mean Corpuscular Hemoglobin 28.8 pg (27.0-33.0); Mean Corpuscular Volume 89.1 fL (80.0-98.0); Monocytes Absolute Auto 1.1 X10*3/uL (0.1-1.2); Monocytes Percent Auto 11.7 % (2-11); Neutrophils Absolute Auto 4.2 x10*3/uL (2.0-8.3); Neutrophils Percent Auto 44.6 % (45-73); Platelet Count 307 X10*3/uL (160-400); Red Blood Count 4.66 X10*6/uL (4.20-5.50); Red Cell Distribution Width 13.3 % (11.0-16.0); White Blood Count 9.4 X10*3/uL (4.8-10.8)
[2023-10-20 12:04] LABS: Alanine Aminotransferase 10 U/L (0-31); Albumin Level 4.3 g/dL (3.5-5.0); Alkaline Phosphatase 62 U/L (39-117); Anion Gap 14 (12-20); Aspartate Amino Transferase 24 U/L (5-31); Bilirubin Total 0.9 mg/dL (0.0-1.0); Blood Urea Nitrogen 20 mg/dL (9-16); Calcium 10.1 mg/dL (8.4-10.2); Carbon Dioxide 25 mmol/L (22-29); Chloride 104 mmol/L (96-108); Estimated Glomerular Filt Rate 58; Glucose Random 101 mg/dL (60-115); Potassium 4.8 mmol/L (3.3-5.1); Sodium 138 mmol/L (135-145); Total Protein 8.2 g/dL (6.5-8.0)
== END 2023-10-20 07:24 | disposition home or self-care (01) ==
LOC: HO.HMGCLDS 07:23
PROVIDERS: PCP Internal Medicine; Visit Provider Internal Medicine
DX: I10 Essential (primary) hypertension (principal); E13.9 Other specified diabetes mellitus without complications; E78.9 Disorder of lipoprotein metabolism, unspecified
CPT/HCPCS: 36415; 80053; 83036; 85025

== ENCOUNTER 2023-10-25 09:03 | Outpatient (REF) | payer MEDICARE, SELFPAY ==
--- NOTE | ~2023-10-25 | MM_ITS ---
EXAMINATION: BONE DENSITOMETRY CLINICAL INDICATION: Hyperparathyroidism. COMPARISON: Previous BD dated 10/14/2021 and baseline BD dated 09/02/2009. TECHNIQUE: Using a [employer] DXA System (software version: 13.1) manufactured by [employer], dual-energy x-ray absorptiometry was performed of the lumbar spine, left hip, and left forearm radius 33%. The images are of good technical quality. Summary results are attached. FINDINGS: LEFT FEMUR, NECK: Current: BMD 1.106 g/cm2, Z-score 2.8, T-score 0.5, normal. Prior: BMD 0.853 g/cm2. Baseline: BMD 0.872 g/cm2. LEFT FEMUR, TOTAL: Current: BMD 1.062 g/cm2, Z-score 2.6, T-score 0.4, normal, 20.8% increase from previous, 1.0% increase from baseline (<5% change is not significant). Prior: BMD 0.879 g/cm2. Baseline: BMD 1.051 g/cm2. AP SPINE L1-L4: Current: BMD 1.595 g/cm2, Z-score 5.3, T-score 3.5, normal, 4.2% increase from previous, 12.5% increase from baseline (<5% change is not significant). Prior: BMD 1.531 g/cm2. Baseline: BMD 1.418 g/cm2. LEFT FOREARM RADIUS 33%: BMD 0.695 g/cm2, Z-score 1.0, T-score -2.1, osteopenia, 1.3% increase from previous, 4.9% decrease from baseline (<5% change is not significant). Prior: BMD 0.686 g/cm2. Baseline: BMD 0.731 g/cm2. IDENTIFIED RISK FACTORS: Menopause, osteoporosis, hyperparathyroidism. HISTORY OF FRACTURE: None listed. MEDICATIONS: Bisphosphonates. MM/XR DEXA appendicular skeleton IMPRESSION: 1. DIAGNOSIS: Osteopenia based on the lowest T-score value of -2.1 in the forearm radius 33% applying World Health Organization criteria. 2. 10-YEAR FRACTURE RISK PREDICTION, FRAX: Not performed in this patient on estrogen or bone building treatments. 3. Treatment Recommendations: NOF guidelines recommend consideration for treatment in postmenopausal women and men age 50 and older presenting with the following: -A hip or vertebral (clinical or morphometric) fracture. -T-score less than or equal to -2.5 at the femoral neck or spine after appropriate evaluation to exclude secondary causes. -Low bone mass at the hip or spine and a 10-year fracture probability by FRAX of greater than or equal to 3% for hip fracture or greater than or equal to 20% for major osteoporotic fracture based on the [place] adapted WHO algorithm. 4. Other Recommendations: All treatment decisions require clinical judgment and consideration of individual patient factors, including patient preferences, comorbidities, previous drug use, risk factors not captured in the FRAX model (e.g. frailty, falls, vitamin D deficiency, increased bone turnover, interval significant decline in bone density) and possible under or overestimation of fracture risk by FRAX. Additional medical evaluation for secondary cause of low bone mineral density may be appropriate. FUTURE SCAN RECOMMENDATION: People with diagnosed cases of osteoporosis or at high risk for fracture should have regular bone mineral density tests. For patients eligible for Medicare, routine testing is allowed once every 2 years. The testing frequency can be increased to one year for patients who have rapidly progressing disease, those who are receiving or discontinuing medical therapy to restore bone mass, or have additional risk factors.
== END 2023-10-25 09:04 | disposition home or self-care (01) ==
LOC: HO.MAMMO 09:03
PROVIDERS: PCP Internal Medicine; Visit Provider Internal Medicine Endocrinology, Diabetes & Metabolism
DX: Z13.820 Encounter for screening for osteoporosis (principal); E21.3 Hyperparathyroidism, unspecified; Z78.0 Asymptomatic menopausal state
CPT/HCPCS: 77081

== ENCOUNTER 2023-10-28 09:06 | Outpatient (AMB) | payer MEDICARE, SELFPAY ==
[2023-10-28 09:11] VITALS: BP 158/66; PULSE 88; O2SAT 97; BMI 28.9
--- NOTE | 2023-10-28 09:11 | MHC.PC.OV ---
Vital Signs 10/28/23 09:11 Height 5 ft Weight 148 lb 2 oz BMI 28.9 BP 158/66 H Blood Pressure Location Lt brachial Position Sitting Pulse 88 Pulse Source Pulse Oximeter Pulse Oximetry (%) 97 Oxygen Delivery Method Room Air Intake Visit Reasons: 4 Month follow up Allergies amoxicillin Allergy (Unknown, Verified 10/28/23 09:12) rash lisinopril [Zestril] Allergy (Unknown, Verified 10/28/23 09:12) tongue swelling penicillin V Allergy (Unknown, Verified 10/28/23 09:12) rash Medication List - Last Reconciled 10/28/23 by Howard Johnson MD alendronate 70 mg PO QWEEK 90 days amlodipine 10 mg PO DAILY 90 days ascorbic acid (vitamin C) 1,000 mg PO DAILY aspirin 81 mg PO DAILY enalapril maleate 20 mg PO DAILY 90 days levothyroxine 75 mcg PO DAILY 90 days multivitamin 1 tab PO DAILY omega-3 fatty acids (Fish Oil Concentrate) 1,200 mg PO DAILY Tobacco use date assessed: 10/28/23 Fall risk assessment: No Falls in past year Last assessed Fall Risk: 10/28/23 Dental Screening Dental Screen Date: 10/28/23 Did you have a dental visit in the last 12 months?: Yes Did you have a dental problem in the last 6 months where you did not have access to dental care?: No Was dental information given to patient?: Patient has dentist HPI 4 Month follow up HPI Details 83-year-old female came in today for her regular 4 month follow-up appointment. Labs done recently reviewed White coat syndrome , but patient comes in to doctor's offices blood pressure is elevated She is monitoring blood pressure at home which is running with the reasonable controlled, we have calibrated her blood pressure machine as well. Hypertension: Patient is on enalapril 20 mg and amlodipine 10 mg. Patient is tolerating medication no side effects. Hearing difficulty: Patient has gotten her hearing aid she is doing well now Hyperparathyroidism management through endocrinology [facility], currently patient is on Fosamax through endocrinology Patient says that she started Fosamax in 2017, she has appointment with Dr. Burns in December she will talk about that, she feels that she should stop now and I agree She had a bone density done recently patient continued to show osteopenia with score of -2.1 Her calcium level continued to be elevated Hypothyroidism: Continue levothyroxine 75 mcg for hypothyroidism Diet-controlled diabetes, hemoglobin A1c is stable Kidney function stable Follow-up February patient have appointment for Medicare wellness visit [facility] Medical History Vitamin D deficiency Diabetes 1.5, managed as type 2 Hypothyroidism Hyperparathyroidism Osteoporosis Surgical History History of hip surgery Social History Housing: Apartment Alcohol intake: never Patient Tobacco Use Status: Never used Tobacco e-Cigarette/Vaping Use: Never Used service: No Current occupational status: retired Cognitive needs: No Hearing needs: No Vision needs: No Questionnaire PHQ-9 Over the last 2 weeks, how often have you been bothered by any of the following problems? 1. Little interest or pleasure in doing things: not at all 2. Feeling down, depressed, or hopeless: not at all 3. Trouble falling or staying asleep, or sleeping too much: several days 4. Feeling tired or having little energy: several days 5. Poor appetite or overeating: not at all 6. Feeling bad about yourself - or that you are a failure or have let yourself or your family down: not at all 7. Trouble concentrating on things, such as reading the newspaper or watching television: not at all 8. Moving or speaking so slowly that other people could have noticed. Or the opposite - being so fidgety or restless that you have been moving around a lot more than usual: not at all 9. Thoughts that you would be better off or of hurting yourself in some way: not at all Total score: 2 Depression Screening Interpretation: Negative Depression Screening Done: Yes 69406 - PHQ-9 Billing: Yes Source: Developed by Drs. Julio Cesar Betts, Jojo Ivan, Jaison Bahena and colleagues, with an educational azin from [employer] ([employer]: [place]). Thrive Questionnaire Date Thrive assessed: 10/19/22 I am a: Patient What is your living situation today?: I have a steady place to live Within the past 12 months, did the food you bought not last and you didn't have the money to get more?: Never true Within the past 12 months, did you worry whether your food would run out before you got money to buy more?: Never true Do you have trouble paying for medicines?: No Do you have trouble getting transportation to medical appointments?: No Do you have trouble paying your heating and electricity bill?: No Do you have trouble taking care of your child, family member or friend?: No Do you have trouble with day-to-day activities such as bathing, preparing meals, shopping, managing finances, etc.?: No Are you currently unemployed and looking for a job?: No Are you interested in more education?: No Please select the resources that you would like help with: None Currently or been in a relationship where the following occur: no concerns reported THRIVE Score: 0 DAVID-7 AMB Questionnaire DAVID-7 Date DAVID - 7 assessed: 10/28/23 Feeling nervous, anxious, or on edge: 0 = Not at all Not being able to stop or control worryin = Not at all Worrying too much about different things: 0 = Not at all Trouble relaxin = Not at all Being so restless that it is hard to sit still: 0 = Not at all Becoming easily annoyed or irritable: 0 = Not at all Feeling afraid as if something awful might happen: 0 = Not at all Total DAVID-7 score (0-4 normal; 5-9 mild; 10-14 moderate; 15-21 severe): 0 Source: Developed by Drs. Julio Cesar Betts, Jojo Ivan, Jaison Bahena and colleagues, with an educational zain from [employer] ([employer]: [place]). DAVID-7 Assessment Billing DAVID-7 Assessment Tool: DAVID-7 Assessment 50038 Review of Systems Const Denies chills and Denies fever(s) ENT Denies epistaxis and Denies nasal discharge Card Denies chest pain Resp Denies chest congestion, Denies cough and Denies hemoptysis GI Denies diarrhea and Denies nausea Skin/Breast Denies rash Neuro Reports no additional complaints Psych Reports no additional complaints Endo Reports no additional complaints Physical exam (Primary Care) Vital Signs: Last Vital Signs Pulse 88 10/28/23 09:11 BP 158/66 H 10/28/23 09:11 Pulse Ox 97 10/28/23 09:11 Oxygen Delivery Method Room Air 10/28/23 09:11 BMI result Body Mass Index 28.9 Tobacco/Smoking Status: Tobacco use Status Tobacco use date assessed 10/28/23 10/28/23 09:19 Patient Tobacco Use Status Never used Tobacco 10/28/23 09:19 e-Cigarette/Vaping Use Never Used 10/28/23 09:19 PHQ-9: PHQ-9 Score PHQ-9: Total score 2 10/28/23 09:28 Depression Screening Interpretation: Negative Thrive Assessment: Date of Thrive Assessment Date Thrive assessed 10/19/22 10/28/23 09:19 Currently or been in a relationship where the following occur: no concerns reported Const General: cooperative, comfortable and no acute distress Orientation/consciousness: patient oriented x3 HENMT Head: Yes normocephalic Eyes General: appearance normal, both eyes and all related structures Neck Neck: Yes supple Resp Effort & Inspection: normal respiratory effort, no cough and no stridor Cardio Rhythm: regular rhythm Heart sounds: S1 normal heart sound present and S2 normal heart sound present Skin General skin exam: turgor normal Neuro General: patient oriented x3, tone normal and moves all extremities Extrem Right lower extremity: no edema Left lower extremity: no edema Assessment and Plan Assessment & Plan (1) Diabetes 1.5, managed as type 2: Code(s): E13.9 - Other specified diabetes mellitus without complications (2) Hypertensive nephropathy: Code(s): I12.9 - Hypertensive chronic kidney disease with stage 1 through stage 4 chronic kidney disease, or unspecified chronic kidney disease (3) Hypertension, essential: Code(s): I10 - Essential (primary) hypertension (4) Hypothyroidism: Code(s): E03.9 - Hypothyroidism, unspecified Qualifiers: Hypothyroidism type: unspecified Qualified Code(s): E03.9 - Hypothyroidism, unspecified (5) Hyperparathyroidism: Code(s): E21.3 - Hyperparathyroidism, unspecified (6) Lipid disorder: Code(s): E78.9 - Disorder of lipoprotein metabolism, unspecified (7) Difficulty hearing: Code(s): H91.90 - Unspecified hearing loss, unspecified ear Qualifiers: Laterality: bilateral Qualified Code(s): H91.93 - Unspecified hearing loss, bilateral (8) White coat syndrome with diagnosis of hypertension: Code(s): I10 - Essential (primary) hypertension Plan 83-year-old female came in today for her regular 4 month follow-up appointment. Labs done recently reviewed White coat syndrome , but patient comes in to doctor's offices blood pressure is elevated She is monitoring blood pressure at home which is running with the reasonable controlled, we have calibrated her blood pressure machine as well. Hypertension: Patient is on enalapril 20 mg and amlodipine 10 mg. Patient is tolerating medication no side effects. Hearing difficulty: Patient has gotten her hearing aid she is doing well now Hyperparathyroidism management through endocrinology [facility], currently patient is on Fosamax through endocrinology Patient says that she started Fosamax in 2018, she has appointment with Dr. Burns in December she will talk about that, she feels that she should stop now and I agree She had a bone density done recently patient continued to show osteopenia with score of -2.1 Her calcium level continued to be elevated Hypothyroidism: Continue levothyroxine 75 mcg for hypothyroidism Diet-controlled diabetes, hemoglobin A1c is stable Kidney function stable Follow-up February patient have appointment for Medicare wellness visit Orders: Orders Comprehensive Met. Panel 3 Months E03.9 - Hypothyroidism, unspecified, E13.9 - Other specified diabetes mellitus without complications, E21.3 - Hyperparathyroidism, unspecified, E78.9 - Disorder of lipoprotein metabolism, unspecified, I10 - Essential (primary) hypertension, I12.9 - Hypertensive chronic kidney disease with stage 1 through stage 4 chronic kidney disease, or unspecified chronic kidney disease Complete Blood Count Auto Diff 3 Months E03.9 - Hypothyroidism, unspecified, E13.9 - Other specified diabetes mellitus without complications, E21.3 - Hyperparathyroidism, unspecified, E78.9 - Disorder of lipoprotein metabolism, unspecified, I10 - Essential (primary) hypertension, I12.9 - Hypertensive chronic kidney disease with stage 1 through stage 4 chronic kidney disease, or unspecified chronic kidney disease TSH reflex Free T4 3 Months E03.9 - Hypothyroidism, unspecified, E13.9 - Other specified diabetes mellitus without complications, E21.3 - Hyperparathyroidism, unspecified, E78.9 - Disorder of lipoprotein metabolism, unspecified, I10 - Essential (primary) hypertension, I12.9 - Hypertensive chronic kidney disease with stage 1 through stage 4 chronic kidney disease, or unspecified chronic kidney disease Microalbumin, Random (w Creat) 3 Months E03.9 - Hypothyroidism, unspecified, E13.9 - Other specified diabetes mellitus without complications, E21.3 - Hyperparathyroidism, unspecified, E78.9 - Disorder of lipoprotein metabolism, unspecified, I10 - Essential (primary) hypertension, I12.9 - Hypertensive chronic kidney disease with stage 1 through stage 4 chronic kidney disease, or unspecified chronic kidney disease LDL Cholesterol Direct 3 Months E78.9 - Disorder of lipoprotein metabolism, unspecified Hemoglobin A1c 3 Months E03.9 - Hypothyroidism, unspecified, E13.9 - Other specified diabetes mellitus without complications, E21.3 - Hyperparathyroidism, unspecified, E78.9 - Disorder of lipoprotein metabolism, unspecified, I10 - Essential (primary) hypertension, I12.9 - Hypertensive chronic kidney disease with stage 1 through stage 4 chronic kidney disease, or unspecified chronic kidney disease Coding Level of Care Code Est Pt Level 4 (47788) Diagnoses Diabetes 1.5, managed as type 2 E13.9 Hypertensive nephropathy I12.9 Hypertension, essential I10 Hypothyroidism, unspecified type E03.9 Hypothyroidism type: unspecified Hyperparathyroidism E21.3 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 Hearing difficulty of both ears H91.93 Laterality: bilateral White coat syndrome with diagnosis of hypertension I10 Additional Codes DAVID-7 Assessment Billing - DAVID-7 Assessment Tool: DAVID-7 Assessment [id number] ([id number])
== END 2023-10-28 11:31 | disposition home or self-care (01) ==
PROVIDERS: PCP Internal Medicine; Visit Provider Internal Medicine
DX: I12.9 Hypertensive chronic kidney disease with stage 1 through stage 4 chronic kidney disease, or unspecified chronic kidney disease (principal); E13.22 Other specified diabetes mellitus with diabetic chronic kidney disease; E21.3 Hyperparathyroidism, unspecified; N18.9 Chronic kidney disease, unspecified; E03.9 Hypothyroidism, unspecified; E78.9 Disorder of lipoprotein metabolism, unspecified; H91.93 Unspecified hearing loss, bilateral
CPT/HCPCS: 99214

== ENCOUNTER 2023-12-27 07:05 | Outpatient (REF) | payer MEDICARE, SELFPAY ==
[2023-12-27 11:20] LABS: Parathyroid Hormone Intact 121.2 pg/mL (8.7-77.1)
[2023-12-27 11:53] LABS: Alanine Aminotransferase 9 U/L (0-31); Albumin Level 4.4 g/dL (3.5-5.0); Alkaline Phosphatase 66 U/L (39-117); Anion Gap 13 (12-20); Aspartate Amino Transferase 21 U/L (5-31); Bilirubin Total 0.6 mg/dL (0.0-1.0); Blood Urea Nitrogen 27 mg/dL (9-16); Calcium 10.3 mg/dL (8.4-10.2); Carbon Dioxide 26 mmol/L (22-29); Chloride 105 mmol/L (96-108); Estimated Glomerular Filt Rate 55; Glucose Random 109 mg/dL (60-115); Phosphorus 3.2 mg/dL (2.7-4.5); Potassium 4.7 mmol/L (3.3-5.1); Sodium 139 mmol/L (135-145); Total Protein 8.4 g/dL (6.5-8.0)
[2023-12-27 12:13] LABS: Vitamin D 25-OH Total 41.1 ng/mL (>30)
[2023-12-30 17:53] LABS: Alkaline Phosphatase Bone 9.5 mcg/L (see note)
[2023-12-30 22:09] LABS: N-Telopeptide 16 (see note); NTXCreaRU 69 mg/dL (20-275)
== END 2023-12-27 07:06 | disposition home or self-care (01) ==
LOC: HO.HMGCLDS 07:05
PROVIDERS: PCP Internal Medicine; Referring Provider Internal Medicine Endocrinology, Diabetes & Metabolism; Visit Provider Internal Medicine
DX: M81.0 Age-related osteoporosis without current pathological fracture (principal); E55.9 Vitamin D deficiency, unspecified
CPT/HCPCS: 36415; 80053; 82306; 82523; 83970; 84075; 84100

== ENCOUNTER 2024-01-02 09:42 | Outpatient (AMB) | payer MEDICARE, SELFPAY ==
[2024-01-02 09:44] VITALS: BP 178/68; PULSE 70; BMI 29.6
--- NOTE | 2024-01-02 09:44 | A.OFFVIS_ITS ---
Vital Signs 01/02/24 09:44 Height 5 ft Weight 151 lb 7.321 oz BMI 29.6 BP 178/68 H Blood Pressure Location Lt brachial Position Sitting Pulse 70 Pulse Source Pulse Oximeter Intake Visit Reasons: Hyperparathyroidism and F/U Osteoporosis Intake Note: Patient presents today for Hyperparathyroidism and Osteoporosis follow, last seen by Dr. Lee on 02/07/2023. 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 Accompanied by: Self / Same As Patient Allergies amoxicillin Allergy (Unknown, Verified 01/02/24 09:48) rash lisinopril [Zestril] Allergy (Unknown, Verified 01/02/24 09:48) tongue swelling penicillin V Allergy (Unknown, Verified 01/02/24 09:48) rash Medication List - Last Reconciled 01/02/24 by Julio Cesar Burns MD alendronate 70 mg PO QWEEK 90 days amlodipine 10 mg PO DAILY 90 days ascorbic acid (vitamin C) 1,000 mg PO DAILY aspirin 81 mg PO DAILY enalapril maleate 20 mg PO DAILY 90 days levothyroxine 75 mcg PO DAILY 90 days multivitamin 1 tab PO DAILY omega-3 fatty acids (Fish Oil Concentrate) 1,200 mg PO DAILY HPI Comments Details: 83 YO Female with PMHx Hyperparathyroidism and resultant Osteoporosis in the distal forearm who is seen in F/U. The patient last saw Dr. Lee on 02/07/2023 First diagnosed in 2017. She has a longstanding history of hyperparathyroidism with hypercalcemia and a nonsuppressed PTH and initially was found to only have osteopenia. She was evalated for a parathyroidectomy by Dr. Dietrich in 2013. She underwent US of the neck as well as Sestamibi scan, and no adenoma was localized. Observation was recommended at that point as her DEXA was normal within the spine and hip, but osteopenic only at the distal forearm. She then had a BMD repeated in 2018 which revealed Osteoporosis of the distal forearm with a T score of -2.7. This was a 6.8% decline from her prior DEXA. She was started on Fosamax weekly Oct 2017, and continues on this now. She has been tolerating this well without complication. Labs continue to reveal high normal Calcium with elevated PTH. Has 4 servings of dietary calcium per day in the form of milk and cheese. Does not take a Calcium supplement or a Vitamin D supplement. Denies ever using PPI, anticoagulant, antiepileptic or glucocorticoid medication. Does weight bearing exercise 5 days per week in the form of [facility]. 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 Menses were always regular. . She did not breastfeed. Menopause was age 53. She did not use HRT. Denies history of Kidney stones: Denies family history of Osteoporosis or hip fracture. UTD on dental cleanings and sees dentist every 6 months. DXA: 10/14/2021 FINDINGS: AP SPINE L1-L4: There is dextrocurvature lumbar spine and multilevel degenerative changes which may cause overestimation of the lumbar bone mineral density. Current: BMD 1.531 g/cm2, Z-score 4.8, T-score 2.9, normal, 0.8% decrease from previous, 8.0% increase from baseline (<5% change is not significant). Prior: BMD 1.543 g/cm2. Baseline: BMD 1.418 g/cm2. LEFT FEMUR, NECK: Current: BMD 0.853 g/cm2, Z-score 0.9, T-score -1.3, osteopenia. Prior: BMD 0.972 g/cm2. Baseline: BMD 0.872 g/cm2. LEFT FEMUR, TOTAL: Current: BMD 0.879 g/cm2, Z-score 1.0, T-score -1.0, normal, 15.2% decrease from previous, 16.4% decrease from baseline (<5% change is not significant). Prior: BMD 1.037 g/cm2. Baseline: BMD 1.051 g/cm2. LEFT FOREARM RADIUS 33%: BMD 0.686 g/cm2, Z-score 0.7, T-score -2.2, osteopenia, 0.4% increase from previous, 6.2% decrease from baseline (<5% change is not significant). Prior: BMD 0.683 g/cm2. Baseline 10/05/2013: BMD 0.731 g/cm2. Labs: Laboratory Tests 07/28/22 07/28/22 02/03/23 07:53 08:25 07:45 Creatinine 0.90 Estimated GFR 60 N-Telopeptide X-linked 12 25-OH Vitamin D Total 40.4 PTH Intact 89 H Calcium (PTH Intact) 9.8 On alendronate for 5 years. Recent DEXA showed low bone mass in the forearm isolated PFSH Medical History Vitamin D deficiency Diabetes 1.5, managed as type 2 Hypothyroidism Hyperparathyroidism Osteoporosis Surgical History History of hip surgery Social History Housing: Apartment Alcohol intake: never Patient Tobacco Use Status: Never used Tobacco e-Cigarette/Vaping Use: Never Used service: No Current occupational status: retired Cognitive needs: No Hearing needs: No Vision needs: No Physical Exam Vital Signs: Last Vital Signs Pulse 70 01/02/24 09:44 BP 178/68 H 01/02/24 09:44 BMI result Body Mass Index 29.6 Assessment & Plan Assessment & Plan (1) Hyperparathyroidism: Code(s): E21.3 - Hyperparathyroidism, unspecified Category: Medical Plan: This 83-year-old white female with a history of primary hyperparathyroidism and osteoporosis of the forearm status post alendronate treatment for 5 years with improvement in bone density. Current bone turnover markers suppressed Would hold alendronate at this point continue vitamin-D and not restrict calcium in diet. We will talk to the patient about the option of surgical exploration as this could cause deterioration in bone density over time. Will check a renal ultrasound as kidney stone could provide another indication for surgical exploration At this point, patient returned to the care of her primary care provider. Should her calcium rise to greater than 11, or there are kidney stones on the ultrasound, patient should be returned back to endocrinology for discussion of parathyroid surgery. If her bone density is repeated in 2 years by a primary care provider and shows osteoporosis at the hip, spine and distal forearm, either alendronate can be reinitiate by the primary care provider or patient referred back to endocrinology for discussion of parathyroid surgery Orders: Orders US renal BI Today E21.3 - Hyperparathyroidism, unspecified Coding Level of Care Code Est Pt Level 3 (97947) Diagnoses Hyperparathyroidism E21.3
== END 2024-01-02 10:19 | disposition home or self-care (01) ==
PROVIDERS: PCP Internal Medicine; Visit Provider Internal Medicine Endocrinology, Diabetes & Metabolism
DX: E21.3 Hyperparathyroidism, unspecified (principal)
CPT/HCPCS: 99213

== ENCOUNTER → 2024-01-02 09:42 | Outpatient (BNVA) | payer MEDICARE, SELFPAY | PROVIDERS: PCP Internal Medicine; Visit Provider Internal Medicine Endocrinology, Diabetes & Metabolism | DX: E21.3 Hyperparathyroidism, unspecified (principal); M81.0 Age-related osteoporosis without current pathological fracture | CPT/HCPCS: 99212 ==

== ENCOUNTER 2024-01-09 08:49 | Outpatient (REF) | payer MEDICARE, SELFPAY ==
--- NOTE | ~2024-01-09 | US_ITS ---
EXAMINATION: US RETROPERITONEAL LIMITED (RENAL ONLY) CLINICAL INFORMATION: Hyperparathyroidism, unspecified. Evaluate for nephrolithiasis. COMPARISON: Renal ultrasound 05/15/2008. TECHNIQUE: Real-time imaging of the kidneys. FINDINGS: RIGHT KIDNEY: 10.7 x 4.0 x 5.4 cm (SAG x AP x TRV). The kidney is normal in size and contour. Renal cortical thickness is normal. No renal calculi or hydronephrosis. Subcentimeter benign-appearing renal cyst, no follow-up imaging recommended. 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 LEFT KIDNEY: 9.7 x 4.9 x 4.5 cm (SAG x AP x TRV). The kidney is normal in size, contour, and echogenicity. Renal cortical thickness is normal. No renal calculi or hydronephrosis. Benign-appearing renal cyst measuring 6 cm. No follow up imaging is recommended. ADDITIONAL FINDINGS: Incidentally noted cholelithiasis. Mural gallbladder wall calcification which can be seen in the setting of porcelain gallbladder consider surgical consultation and confirmation with CT. Negative sonographic Zheng sign. US/US renal BI IMPRESSION: 1. No nephrolithiasis. 2. 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 3. Incidentally noted cholelithiasis. Mural gallbladder wall calcification which can be seen in the setting of porcelain gallbladder consider surgical consultation and confirmation with CT.
== END 2024-01-09 08:50 | disposition home or self-care (01) ==
LOC: HO.HMGCX 08:49
PROVIDERS: PCP Internal Medicine; Visit Provider Internal Medicine Endocrinology, Diabetes & Metabolism
DX: E21.3 Hyperparathyroidism, unspecified (principal)
CPT/HCPCS: 76775

== ENCOUNTER 2024-01-19 08:33 | Outpatient (AMB) | payer MEDICARE, SELFPAY ==
--- NOTE | 2024-01-19 08:55 | A.OFFPC_ITS ---
Intake Visit Reasons: Discuss gall bladder findings~ [phone] Allergies amoxicillin Allergy (Unknown, Verified 01/02/24 09:48) rash lisinopril [Zestril] Allergy (Unknown, Verified 01/02/24 09:48) tongue swelling penicillin V Allergy (Unknown, Verified 01/02/24 09:48) rash Medication List - Last Reconciled 01/19/24 by Howard Johnson MD alendronate 70 mg PO QWEEK 90 days amlodipine 10 mg PO DAILY 90 days ascorbic acid (vitamin C) 1,000 mg PO DAILY aspirin 81 mg PO DAILY enalapril maleate 20 mg PO DAILY 90 days levothyroxine 75 mcg PO DAILY 90 days multivitamin 1 tab PO DAILY omega-3 fatty acids (Fish Oil Concentrate) 1,200 mg PO DAILY Tobacco use date assessed: 10/28/23 Dental Screening Dental Screen Date: 10/28/23 HPI Discuss gall bladder findings~ [phone] HPI Details Patient is 83 year old female she had renal US, as there was concern about possibility of renal calculi Us showed 1. No nephrolithiasis. 2. A 0.9 cm echogenic avascular right l ower pole renal lesion which may reflect a small angiomyolipoma versus a focus of cortical scarring. 3. Incidentally noted cholelithiasis. M ural gallbladder wall calcification which can be seen in the setting of porcelain gallbladder consider surgical consultation and confirmation with CT. Us report discussed with patient she dont have any RUQ pain or digestion issues at this time she would like CT scan done at this time first then she will decide if she would like to have surgical consultation [facility] Medical History Vitamin D deficiency Diabetes 1.5, managed as type 2 Hypothyroidism Hyperparathyroidism Osteoporosis Surgical History History of hip surgery Social History Housing: Apartment Alcohol intake: never Patient Tobacco Use Status: Never used Tobacco e-Cigarette/Vaping Use: Never Used service: No Current occupational status: retired Cognitive needs: No Hearing needs: No Vision needs: No Questionnaire Thrive Questionnaire Date Thrive assessed: 10/19/22 DAVID-7 AMB Questionnaire DAVID-7 Date DAVID - 7 assessed: 10/28/23 Source: Developed by Drs. Julio Cesar Betts, Jojo Ivan, Jaison Bahena and colleagues, with an educational zain from [employer]. Review of Systems Const Denies chills and Denies fever(s) ENT Denies epistaxis and Denies nasal discharge Card Denies chest pain Resp Denies chest congestion, Denies cough and Denies hemoptysis GI Denies diarrhea and Denies nausea Skin/Breast Denies rash Neuro Reports no additional complaints Psych Reports no additional complaints Endo Reports no additional complaints Physical exam (Primary Care) Tobacco/Smoking Status: Tobacco use Status Tobacco use date assessed 10/28/23 01/19/24 08:56 Patient Tobacco Use Status Never used Tobacco 01/19/24 08:56 e-Cigarette/Vaping Use Never Used 01/19/24 08:56 Thrive Assessment: Date of Thrive Assessment Date Thrive assessed 10/19/22 01/19/24 08:56 Telehealth Telehealth Telehealth Platform: [facility] Location of provider rendering services: practice address Location of patient: address on file Patient Identification confirmed using: Name, : Yes Telehealth method: voice only Patient verbally consented to treatment: Yes Patient verbally consented to billing insurance company: Yes Patient informed of any privacy concerns related to visit: Yes Minutes spent on Phone/Video with Pt.: 16 Assessment and Plan Assessment & Plan (1) Gall bladder disease: Code(s): K82.9 - Disease of gallbladder, unspecified Plan Patient is 83 year old female she had renal US, as there was concern about possibility of renal calculi Us showed 1. No nephrolithiasis. 2. 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 3. Incidentally noted cholelithiasis. Mural gallbladder wall calcification which can be seen in the setting of porcelain gallbladder consider surgical consultation and confirmation with CT. Us report discussed with patient she dont have any RUQ pain or digestion issues at this time she would like CT scan done at this time first then she will decide if she would like to have surgical consultation Orders: Orders CT abdomen wo IV con Today K82.8 - Other specified diseases of gallbladder Coding Level of Care Code Tele Est Pt Level 3 (77885) Diagnoses Gall bladder disease K82.9
== END 2024-01-19 09:21 | disposition home or self-care (01) ==
LOC: HO.HMGC 08:33
PROVIDERS: PCP Internal Medicine; Visit Provider Internal Medicine
DX: K82.9 Disease of gallbladder, unspecified (principal)
CPT/HCPCS: 99442

== ENCOUNTER 2024-02-23 06:55 | Outpatient (REF) | payer MEDICARE, SELFPAY ==
[2024-02-23 10:28] LABS: MANUAL DIFF FLAG NO
[2024-02-23 10:35] LABS: Basophils Absolute Auto 0.1 X10*3/uL (0.0-0.2); Basophils Percent Auto 0.5 % (0-2); Eosinophils Absolute Auto 0.3 X10*3/uL (0.0-0.4); Eosinophils Percent Auto 3.1 % (0-4); Hemoglobin 13.3 g/dl (12.0-16.0); Imm Gran Abs Auto 0.04 X10*3/uL (0.00-0.03); Imm Gran Pct Auto 0.4 % (0.0-0.4); Lymphocytes Absolute Auto 3.9 X10*3/uL (1.2-4.9); Lymphocytes Percent Auto 41.1 % (20-40); Mean Corpuscular HGB Conc 31.7 g/dl (31.0-35.0); Mean Corpuscular Hemoglobin 28.2 pg (27.0-33.0); Mean Platelet Volume 9.8 fL (9.4-12.3); Monocytes Percent Auto 10.5 % (2-11); Neutrophils Absolute Auto 4.2 x10*3/uL (2.0-8.3); Neutrophils Percent Auto 44.4 % (45-73); Platelet Count 328 X10*3/uL (160-400); Red Blood Count 4.72 X10*6/uL (4.20-5.50); Red Cell Distribution Width 13.7 % (11.0-16.0); White Blood Count 9.6 X10*3/uL (4.8-10.8)
[2024-02-23 10:48] LABS: Estimated Average Glucose 117 mg/dL; Hemoglobin A1C 140.8255 umol/L; Hemoglobin A1c % 5.7 % (<6.0)
[2024-02-23 10:49] LABS: Alanine Aminotransferase 7 U/L (0-31); Albumin Level 4.4 g/dL (3.5-5.0); Alkaline Phosphatase 70 U/L (39-117); Anion Gap 13 (12-20); Aspartate Amino Transferase 22 U/L (5-31); Bilirubin Total 0.8 mg/dL (0.0-1.0); Blood Urea Nitrogen 26 mg/dL (9-16); Calcium 10.5 mg/dL (8.4-10.2); Carbon Dioxide 25 mmol/L (22-29); Chloride 105 mmol/L (96-108); Estimated Glomerular Filt Rate 55; Glucose Random 109 mg/dL (60-115); Potassium 4.9 mmol/L (3.3-5.1); Sodium 138 mmol/L (135-145); Total Protein 8.5 g/dL (6.5-8.0)
[2024-02-23 11:06] LABS: TSH reflex Free T4 2.65 uIU/mL (0.32-4.0)
[2024-02-23 11:40] LABS: Creatinine Urine 64.64 mg/dL; Microalbum/Creatinine Ratio Ur 24.7 ug/mg cr (<30)
[2024-02-25 00:24] LABS: LDL Cholesterol Direct 145 mg/dL (<100)
== END 2024-02-23 06:56 | disposition home or self-care (01) ==
LOC: HO.HMGCLDS 06:55
PROVIDERS: PCP Internal Medicine; Visit Provider Internal Medicine
DX: I12.9 Hypertensive chronic kidney disease with stage 1 through stage 4 chronic kidney disease, or unspecified chronic kidney disease (principal); E13.9 Other specified diabetes mellitus without complications; E03.9 Hypothyroidism, unspecified; E21.3 Hyperparathyroidism, unspecified; E78.9 Disorder of lipoprotein metabolism, unspecified; N18.9 Chronic kidney disease, unspecified
CPT/HCPCS: 36415; 80053; 82043; 82570; 83036; 83721; 84443; 85025

== ENCOUNTER 2024-02-29 08:49 | Outpatient (AMB) | payer MEDICARE, SELFPAY ==
[2024-02-29 08:55] VITALS: BP 164/56; PULSE 81; O2SAT 90; BMI 29.2
--- NOTE | 2024-02-29 08:55 | A.OFFVIS_ITS ---
Intake Vital Signs 02/29/24 08:55 Height 5 ft Weight 149 lb 6 oz BMI 29.2 BP 164/56 H Blood Pressure Location Lt brachial Position Sitting Pulse 81 Pulse Source Pulse Oximeter Pulse Oximetry (%) 90 L Oxygen Delivery Method Room Air Intake Visit Reasons: V G0439 Allergies amoxicillin Allergy (Unknown, Verified 02/29/24 08:56) rash lisinopril [Zestril] Allergy (Unknown, Verified 02/29/24 08:56) tongue swelling penicillin V Allergy (Unknown, Verified 02/29/24 08:56) rash Medication List - Last Reconciled 02/29/24 by Howard Johnson MD amlodipine 10 mg PO DAILY 90 days ascorbic acid (vitamin C) 1,000 mg PO DAILY aspirin 81 mg PO DAILY enalapril maleate 20 mg PO DAILY 90 days levothyroxine 75 mcg PO DAILY 90 days multivitamin 1 tab PO DAILY omega-3 fatty acids (Fish Oil Concentrate) 1,200 mg PO DAILY Do you need a note to return to daycare/school/sports/work: No HPI [facility] G0439 HPI Details Patient is 83-year-old female came in today for her regular follow-up appointment and Medicare wellness visit. Labs done recently reviewed with the patient Calcium continued to be slightly elevated, patient was seeing Dr. Burns endocrinology [facility] for the management Recently she has been discharged. 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 Patient will have surgical consultation after for gallbladder removal Blood pressure continued to be elevated in the office patient have white coat hypertension her blood pressure is running around 120 systolic at home she is monitoring it regularly.. She is to continue amlodipine 10 mg and enalapril 20 mg daily she is also taking levothyroxine 75 mcg she is to continue that. TSH within normal limit diet-controlled diabetic hemoglobin A1c stable patient also sees endocrinology [facility] for hyperparathyroidism Follow-up June HPI Comments History of Present Illness Details AWV Medical/social history reviewed Past medical history reviewed [place] of care / care team list updated Surgical/ hospitalization history reviewed Current medications including OTC and supplements reviewed Family history reviewed Tobacco controlled form updated Alcohol use form updated Illicit drug use in social history reviewed Current diagnosis of depression ?screening updated Appropriate PHQ 2/PHQ-9 completed . Vital signs reviewed Alcohol tobacco drug use reviewed and discussed . MMSE completed . ? Fall risk: ?Assessed Fall history: ?None Have you had any falls with injury in the past year?? No Have you had 2 or more falls in the past year?? No Fall risk assessment completed Home safety discussed with the patient Functional ability assessed and discussed and documented Activities of daily living reviewed and appropriate actions taken . HRA filled out by the patient and reviewed by provider and scanned . Appropriate written screening schedule established . Any health advise needed provided . Advance care planning discussed with the patient , necessary paperwork filled Examination IPPE/AWE: Balance intact Romberg intact Tandem walk intact walk-in turn intact rise from sit to stand intact . ?Hearing ?whisper test pass . Medication list reviewed, patient is stable on medications All other providers patient is seeing discussed and noted . [facility] Medical History Vitamin D deficiency Diabetes 1.5, managed as type 2 Hypothyroidism Hyperparathyroidism Osteoporosis Surgical History History of hip surgery Social History Housing: Apartment Alcohol intake: never Patient Tobacco Use Status: Never used Tobacco e-Cigarette/Vaping Use: Never Used service: No Current occupational status: retired Cognitive needs: No Hearing needs: No Vision needs: No Questionnaire Medicare Wellness Checkup What is your age?: 80 or older What gender do you identify with?: female During the past 4 weeks, how much have you been bothered by emotional problems such as feeling anxious, depressed, irritable, sad or downhearted, and blue?: not at all During the past 4 weeks, has your physical & emotional health limited your social activities with family, friends, neighbors, or groups?: not at all During the past 4 weeks, how much bodily pain have you generally had?: mild pain During the past 4 weeks, was someone available to help you if you needed & wanted help?: yes, as much as I wanted During the past 4 weeks, what was the hardest physical activity you could do for at least 2 minutes?: moderate Can you get to places out of walking distance without help? (For eg., can you travel alone on buses, taxis or drive your car?): Yes Can you go shopping for groceries or clothes without someone's help?: Yes Can you prepare your own meals?: Yes Can you do your housework without help?: Yes Because of any health problems, do you need the help of another person with your personal care needs such as eating, bathing, dressing or getting around the house?: No Can you handle your own money without help?: Yes During the past 4 weeks, how would you rate your health in general?: very good During the past 4 weeks how have things been going for you?: pretty well Are you having difficulties driving your car?: no Do you always fasten your seat belt when you are in a car?: yes, usually During past 4 weeks, have you been bothered by the following: never: Sexual problems?, Teeth or denture problems? and Problems using the telephone? and seldom: Falling or dizzy when standing up and Tiredness or fatigue? Have you fallen 2 or more times in the past year?: No Are you afraid of falling?: No Are you a smoker?: no During the past 4 weeks, how many drinks of wine, beer, or other alcoholic beverages did you have?: no alcohol at all Do you exercise for about 20 minutes 3 or more times a week?: yes, most of the time Have you been given information to help with the following?: no: Hazards in your house that might hurt you? and no: Keeping track of your medications? How often do you have trouble taking medicines the way you have been told to take them?: I do not have to take medicine How confident are you that you can control & manage most of your health problems?: very confident What is your race?: White Mini Mental State Exam (MMSE) Orientation What is the (year) (season) (date) (day) (month)?: year, season, date, day and month Where are we (state) (county) (town or city) (hospital) (floor)?: state, county, town or city, hospital/clinic and floor Score Score: 10 Activity of Daily Living Bathing - sponge bath, tub bath or shower: receives no assistance (gets in/out by self, if usual bathing means Dressing - getting clothes from closets & drawers, including inner/outer garments & fasteners.: gets clothes & gets completely dressed without help Toileting - going to the 'toilet room' for urine/bowel elimination & cleaning self/arranging clothes: goes to toilet room, cleans self, arranges clothes without help Transfer: moves in & out of bed and chair without help (may use support object) Continence: controls urination/bowel movements completely by self Feeding: feeds self without help Total Score: 0 Information obtained from: patient Using telephone: independent Traveling: independent Shopping: independent Preparing meals: independent Housework: independent Taking medicine: independent Managing money: independent PHQ-9 Over the last 2 weeks, how often have you been bothered by any of the following problems? 1. Little interest or pleasure in doing things: not at all 2. Feeling down, depressed, or hopeless: not at all 3. Trouble falling or staying asleep, or sleeping too much: several days 4. Feeling tired or having little energy: not at all 5. Poor appetite or overeating: not at all 6. Feeling bad about yourself - or that you are a failure or have let yourself or your family down: not at all 7. Trouble concentrating on things, such as reading the newspaper or watching television: not at all 8. Moving or speaking so slowly that other people could have noticed. Or the opposite - being so fidgety or restless that you have been moving around a lot more than usual: not at all 9. Thoughts that you would be better off or of hurting yourself in some way: not at all Total score: 1 Depression Screening Interpretation: Negative Depression Screening Done: Yes 02516 - PHQ-9 Billing: Yes Source: Developed by Drs. Julio Cesar Betts, Jojo Ivan, Jaison Bahena and colleagues, with an educational zain from [employer]. Review of Systems Const Denies chills and Denies fever(s) ENT Denies epistaxis and Denies nasal discharge Card Denies chest pain Resp Denies chest congestion, Denies cough and Denies hemoptysis GI Denies diarrhea and Denies nausea Skin/Breast Denies rash Neuro Reports no additional complaints Psych Reports no additional complaints Endo Reports no additional complaints Physical Exam Vital Signs: Last Vital Signs Pulse 81 02/29/24 08:55 BP 164/56 H 02/29/24 08:55 Pulse Ox 90 L 02/29/24 08:55 Oxygen Delivery Method Room Air 02/29/24 08:55 BMI result Body Mass Index 29.2 Const General: cooperative, comfortable and no acute distress Orientation/consciousness: patient oriented x3 HEENT Head: Yes normocephalic Eyes General: appearance normal, both eyes and all related structures Neck Other: Supple Neck: Yes supple Resp Effort & Inspection: normal respiratory effort, no cough and no stridor Cardio Rhythm: regular rhythm Heart sounds: S1 normal heart sound present and S2 normal heart sound present Skin General skin exam: turgor normal Neuro Other: Motor sensory intact General: patient oriented x3, tone normal and moves all extremities Extrem Other: No lower extremity swelling. Right lower extremity: no edema Left lower extremity: no edema Psych Other: Normal effect, speech clear Assessment & Plan Assessment & Plan (1) Medicare annual wellness visit, subsequent: Code(s): Z00.00 - Encounter for general adult medical examination without abnormal findings (2) Diabetes 1.5, managed as type 2: Code(s): E13.9 - Other specified diabetes mellitus without complications (3) Hypothyroidism: Code(s): E03.9 - Hypothyroidism, unspecified Qualifiers: Hypothyroidism type: unspecified Qualified Code(s): E03.9 - Hypothyroidism, unspecified (4) Hypertension, essential: Code(s): I10 - Essential (primary) hypertension (5) DNR (do not resuscitate): Code(s): Z66 - Do not resuscitate (6) Hyperparathyroidism: Code(s): E21.3 - Hyperparathyroidism, unspecified (7) Gall bladder disease: Code(s): K82.9 - Disease of gallbladder, unspecified Plan Patient is 83-year-old female came in today for her regular follow-up appointment and Medicare wellness visit. Labs done recently reviewed with the patient Calcium continued to be slightly elevated, patient was seeing Dr. Burns endocrinology [facility] for the management Recently she has been discharged. 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 Patient will have surgical consultation after for gallbladder removal Blood pressure continued to be elevated in the office patient have white coat hypertension her blood pressure is running around 120 systolic at home she is monitoring it regularly.. She is to continue amlodipine 10 mg and enalapril 20 mg daily she is also taking levothyroxine 75 mcg she is to continue that. TSH within normal limit diet-controlled diabetic hemoglobin A1c stable patient also sees endocrinology [facility] for hyperparathyroidism Follow-up June Quality Reporting (2019) Depression/Bipolar (159/160/161/177) PHQ-9: Total score: 1 Coding Level of Care Code Medicare Subsequent (G0439) Est Pt Level 4 (53876) Diagnoses Medicare annual wellness visit, subsequent Z00.00 Diabetes 1.5, managed as type 2 E13.9 Hypothyroidism, unspecified type E03.9 Hypothyroidism type: unspecified Hypertension, essential I10 DNR (do not resuscitate) Z66 Hyperparathyroidism E21.3 Gall bladder disease K82.9 CPT Codes Advance Care Planning - Advance Care Planning discussion: On file, no changes ([id number]) Advance Care Planning Advance Care Planning discussion: On file, no changes
== END 2024-02-29 09:15 | disposition home or self-care (01) ==
PROVIDERS: PCP Internal Medicine; Visit Provider Internal Medicine
DX: Z00.00 Encounter for general adult medical examination without abnormal findings (principal); E13.9 Other specified diabetes mellitus without complications; E21.3 Hyperparathyroidism, unspecified; E03.9 Hypothyroidism, unspecified; I10 Essential (primary) hypertension; Z66 Do not resuscitate; K82.9 Disease of gallbladder, unspecified
CPT/HCPCS: 1123F; 99214; G0439

== ENCOUNTER 2024-03-21 14:47 | Outpatient (REF) | payer MEDICARE, SELFPAY ==
--- NOTE | ~2024-03-21 | CT_ITS ---
EXAMINATION: CT ABDOMEN WITHOUT CONTRAST CLINICAL INFORMATION: Porcelain gallbladder COMPARISON: None available. TECHNIQUE: Contiguous axial thin section helical images of the abdomen were performed without contrast. The data set was reformatted in the coronal and sagittal planes and reviewed on an independent workstation. This CT examination was performed using dose optimization techniques as appropriate, variously including the following: *Automated exposure control *Adjustment of mA and/or kV according to patient size (this includes techniques or standardized protocols for targeted exams where dose is matched to indication/reason for exam; i.e. extremities or head) *Use of iterative reconstruction technique DLP: 168 mGy-cm FINDINGS: LUNG BASES: No suspicious lung nodules. LIVER, GALLBLADDER, BILIARY TREE: The liver appears normal in attenuation without discrete mass or ductal dilatation. There is high density bile within the gallbladder which delineates multiple low-attenuation gallstones ranging in size 7-17 mm. There is no evidence of mural calcification by CT. No evidence of acute cholecystitis. PANCREAS: No discrete pancreatic mass or pancreatic ductal dilatation. SPLEEN: The spleen appears normal. ADRENAL GLANDS AND KIDNEYS: No adrenal mass. No nephrolithiasis or hydronephrosis. There are several simple cysts bilaterally for which no imaging follow-up is recommended. 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 BOWEL LOOPS: Small hiatal hernia. The included small and large bowel are normal in caliber. There is colonic diverticulosis. LYMPH NODES: No pathologically enlarged lymph nodes. VASCULAR: Moderate aortoiliac atherosclerosis. No aortic aneurysm. BONES: Degenerative changes in the spine. CT/CT abdomen wo IV con IMPRESSION: Cholelithiasis without evidence of acute cholecystitis. No evidence of porcelain gallbladder by CT. Fleischner guidelines were followed.
== END 2024-03-21 14:48 | disposition home or self-care (01) ==
LOC: HO.CT 14:47
PROVIDERS: PCP Internal Medicine; Visit Provider Internal Medicine
DX: K82.8 Other specified diseases of gallbladder (principal)
CPT/HCPCS: 74150

== ENCOUNTER 2024-07-13 08:09 | Outpatient (REF) | payer MEDICARE, SELFPAY ==
[2024-07-13 10:09] LABS: Basophils Absolute Auto 0.1 X10*3/uL (0.0-0.2); Basophils Percent Auto 0.5 % (0-2); Eosinophils Absolute Auto 0.2 X10*3/uL (0.0-0.4); Hematocrit 39.9 % (37.0-47.0); Hemoglobin 12.8 g/dl (12.0-16.0); Imm Gran Abs Auto 0.04 X10*3/uL (0.00-0.03); Imm Gran Pct Auto 0.4 % (0.0-0.4); Lymphocytes Absolute Auto 3.5 X10*3/uL (1.2-4.9); Lymphocytes Percent Auto 31.6 % (20-40); MANUAL DIFF FLAG NO; Mean Corpuscular HGB Conc 32.1 g/dl (31.0-35.0); Mean Corpuscular Hemoglobin 28.4 pg (27.0-33.0); Mean Corpuscular Volume 88.5 fL (80.0-98.0); Mean Platelet Volume 9.8 fL (9.4-12.3); Monocytes Absolute Auto 1.1 X10*3/uL (0.1-1.2); Monocytes Percent Auto 9.4 % (2-11); Neutrophils Absolute Auto 6.3 x10*3/uL (2.0-8.3); Neutrophils Percent Auto 56.1 % (45-73); Platelet Count 333 X10*3/uL (160-400); Red Blood Count 4.51 X10*6/uL (4.20-5.50); Red Cell Distribution Width 13.2 % (11.0-16.0); White Blood Count 11.2 X10*3/uL (4.8-10.8)
[2024-07-13 10:56] LABS: Estimated Average Glucose 120 mg/dL; Hemoglobin A1C 134.9061 umol/L; Hemoglobin A1c % 5.8 % (<6.0); Total Hemoglobin (HGBA1C) 3428.8147 umol/L
[2024-07-13 12:23] LABS: Alanine Aminotransferase 7 U/L (0-31); Albumin Level 4.3 g/dL (3.5-5.0); Alkaline Phosphatase 73 U/L (39-117); Anion Gap 17 (12-20); Aspartate Amino Transferase 27 U/L (5-31); Bilirubin Total 0.6 mg/dL (0.0-1.0); Blood Urea Nitrogen 29 mg/dL (9-16); Calcium 10.7 mg/dL (8.4-10.2); Carbon Dioxide 22 mmol/L (22-29); Chloride 104 mmol/L (96-108); Estimated Glomerular Filt Rate 53; Glucose Random 127 mg/dL (60-115); Sodium 138 mmol/L (135-145); TSH reflex Free T4 2.93 uIU/mL (0.32-4.0); Total Protein 8.3 g/dL (6.5-8.0)
[2024-07-15 04:54] LABS: LDL Cholesterol Direct 127 mg/dL (<100)
[2024-07-19 17:03] LABS: Vitamin D 25-OH, D2 <4 ng/mL; Vitamin D 25-OH, D3 58 ng/mL; Vitamin D 25-OH, Total 58 ng/mL (30-100)
== END 2024-07-13 08:10 | disposition home or self-care (01) ==
LOC: HO.HMGCLDS 08:09
PROVIDERS: PCP Internal Medicine; Visit Provider Internal Medicine
DX: E13.9 Other specified diabetes mellitus without complications (principal); E03.9 Hypothyroidism, unspecified; I10 Essential (primary) hypertension; E21.3 Hyperparathyroidism, unspecified; K80.20 Calculus of gallbladder without cholecystitis without obstruction; M25.611 Stiffness of right shoulder, not elsewhere classified; E55.9 Vitamin D deficiency, unspecified; M81.0 Age-related osteoporosis without current pathological fracture; Z79.899 Other long term (current) drug therapy
CPT/HCPCS: 36415; 80053; 82306; 83036; 83721; 84443; 85025; 96127; 99212

== ENCOUNTER 2024-07-13 08:09 | Outpatient (AMB) | payer MEDICARE, SELFPAY ==
[2024-07-13 08:15] VITALS: BP 160/80; PULSE 92; O2SAT 99; BMI 28.9
--- NOTE | 2024-07-13 08:15 | MHC.PC.OV ---
Vital Signs 07/13/24 08:15 Height 5 ft Weight 148 lb BMI 28.9 BP 160/80 H Blood Pressure Location Lt brachial Position Sitting Pulse 92 Pulse Source Pulse Oximeter Pulse Oximetry (%) 99 Oxygen Delivery Method Room Air Intake Visit Reasons: 4 Month F/U Allergies amoxicillin Allergy (Unknown, Verified 02/29/24 08:56) rash lisinopril [Zestril] Allergy (Unknown, Verified 02/29/24 08:56) tongue swelling penicillin V Allergy (Unknown, Verified 02/29/24 08:56) rash Medication List - Last Reconciled 07/13/24 by Howard Johnson MD amlodipine 10 mg PO DAILY 90 days ascorbic acid (vitamin C) 1,000 mg PO DAILY aspirin 81 mg PO DAILY enalapril maleate 20 mg PO DAILY 90 days levothyroxine 75 mcg PO DAILY 90 days multivitamin 1 tab PO DAILY omega-3 fatty acids (Fish Oil Concentrate) 1,200 mg PO DAILY Tobacco use date assessed: 07/13/24 Fall risk assessment: No Falls in past year Last assessed Fall Risk: 07/13/24 Dental Screening Dental Screen Date: 07/13/24 Did you have a dental visit in the last 12 months?: Yes Did you have a dental problem in the last 6 months where you did not have access to dental care?: No Was dental information given to patient?: Patient has dentist HPI 4 Month F/U HPI Details Patient is 84-year-old female came in today for her regular follow-up appointment Last set of lab was February Calcium continued to be slightly elevated, patient was seeing Dr. Burns endocrinology [facility] for the management She has been discharged. 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 Blood pressure continued to be elevated in the office patient have white coat hypertension her blood pressure is running around 120 systolic at home she is monitoring it regularly.. She is to continue amlodipine 10 mg and enalapril 20 mg daily She did bring her monitor along today and her blood pressure is 160 on her monitor as well She brought the blood pressure readings from home they are running around 120s and low teens she is also taking levothyroxine 75 mcg she is to continue that. TSH within normal limit Arthritis multiple joint, patient is taking Tylenol as needed She has a limited range of motion right shoulder which is chronic and not bothering patient diet-controlled diabetic hemoglobin A1c stable Follow-up 4 months [facility] Medical History Vitamin D deficiency Diabetes 1.5, managed as type 2 Hypothyroidism Hyperparathyroidism Osteoporosis Surgical History History of hip surgery Social History Housing: Apartment Alcohol intake: never Patient Tobacco Use Status: Never used Tobacco e-Cigarette/Vaping Use: Never Used service: No Current occupational status: retired Cognitive needs: No Hearing needs: No Vision needs: No Questionnaire PHQ-9 Over the last 2 weeks, how often have you been bothered by any of the following problems? 1. Little interest or pleasure in doing things: not at all 2. Feeling down, depressed, or hopeless: not at all 3. Trouble falling or staying asleep, or sleeping too much: not at all 4. Feeling tired or having little energy: not at all 5. Poor appetite or overeating: not at all 6. Feeling bad about yourself - or that you are a failure or have let yourself or your family down: not at all 7. Trouble concentrating on things, such as reading the newspaper or watching television: not at all 8. Moving or speaking so slowly that other people could have noticed. Or the opposite - being so fidgety or restless that you have been moving around a lot more than usual: not at all 9. Thoughts that you would be better off or of hurting yourself in some way: not at all Total score: 0 Depression Screening Interpretation: Negative Depression Screening Done: Yes 05896 - PHQ-9 Billing: Yes Source: Developed by Drs. Julio Cesar Betts, Jojo Ivan, Jaison Bahena and colleagues, with an educational zain from [employer]. Thrive Questionnaire Date Thrive assessed: 10/19/22 I am a: Patient What is your living situation today?: I have a steady place to live Within the past 12 months, did the food you bought not last and you didn't have the money to get more?: Never true Within the past 12 months, did you worry whether your food would run out before you got money to buy more?: Never true Do you have trouble paying for medicines?: No Do you have trouble getting transportation to medical appointments?: No Do you have trouble paying your heating and electricity bill?: No Do you have trouble taking care of your child, family member or friend?: No Do you have trouble with day-to-day activities such as bathing, preparing meals, shopping, managing finances, etc.?: No Are you currently unemployed and looking for a job?: No Are you interested in more education?: No Please select the resources that you would like help with: None Currently or been in a relationship where the following occur: No concerns reported and I choose not to answer THRIVE Score: 0 AUDIT C Alcohol Use Questionnaire (AUDIT-C) 1. How often do you have a drink containing alcohol?: Never Total Score: 0 DAVID-7 AMB Questionnaire DAVID-7 Date DAVID - 7 assessed: 10/28/23 Feeling nervous, anxious, or on edge: 0 = Not at all Not being able to stop or control worryin = Not at all Worrying too much about different things: 0 = Not at all Trouble relaxin = Not at all Being so restless that it is hard to sit still: 0 = Not at all Becoming easily annoyed or irritable: 0 = Not at all Feeling afraid as if something awful might happen: 0 = Not at all Total DAVID-7 score (0-4 normal; 5-9 mild; 10-14 moderate; 15-21 severe): 0 Source: Developed by Drs. Julio Cesar Betts, Jojo Ivan, Jaison Bahena and colleagues, with an educational zain from [employer]. Review of Systems Const Denies chills and Denies fever(s) ENT Denies epistaxis and Denies nasal discharge Card Denies chest pain Resp Denies chest congestion, Denies cough and Denies hemoptysis GI Denies diarrhea and Denies nausea Skin/Breast Denies rash Neuro Reports no additional complaints Psych Reports no additional complaints Endo Reports no additional complaints Physical exam (Primary Care) Vital Signs: Last Vital Signs Pulse 92 07/13/24 08:15 BP 160/80 H 07/13/24 08:15 Pulse Ox 99 07/13/24 08:15 Oxygen Delivery Method Room Air 07/13/24 08:15 BMI result Body Mass Index 28.9 Tobacco/Smoking Status: Tobacco use Status Tobacco use date assessed 07/13/24 07/13/24 08:17 Patient Tobacco Use Status Never used Tobacco 07/13/24 08:17 e-Cigarette/Vaping Use Never Used 07/13/24 08:17 PHQ-9: PHQ-9 Score PHQ-9: Total score 0 07/13/24 08:36 Depression Screening Interpretation: Negative Thrive Assessment: Date of Thrive Assessment Date Thrive assessed 10/19/22 07/13/24 08:17 Currently or been in a relationship where the following occur: No concerns reported and I choose not to answer Const General: cooperative, comfortable and no acute distress Orientation/consciousness: patient oriented x3 HENMT Head: Yes normocephalic Eyes General: appearance normal, both eyes and all related structures Neck Neck: Yes supple Resp Effort & Inspection: normal respiratory effort, no cough and no stridor Cardio Rhythm: regular rhythm Heart sounds: S1 normal heart sound present and S2 normal heart sound present Skin General skin exam: turgor normal Neuro General: patient oriented x3, tone normal and moves all extremities Extrem Right lower extremity: no edema Left lower extremity: no edema Coding Level of Care Code Est Pt Level 4 (87242) Complex EM visit Add On G2211 Diagnoses Diabetes 1.5, managed as type 2 E13.9 Hypothyroidism, unspecified type E03.9 Hypothyroidism type: unspecified Hypertension, essential I10 Hyperparathyroidism E21.3 Gallstones K80.20 Decreased right shoulder range of motion M25.611 Additional Codes PHQ-9 - 27376 - PHQ-9 Billing: Yes ([id number]) Assessment & Plan Assessment & Plan (1) Diabetes 1.5, managed as type 2: Code(s): E13.9 - Other specified diabetes mellitus without complications Category: Medical (2) Hypothyroidism: Code(s): E03.9 - Hypothyroidism, unspecified Category: Medical Qualifiers: Hypothyroidism type: unspecified Qualified Code(s): E03.9 - Hypothyroidism, unspecified (3) Hypertension, essential: Code(s): I10 - Essential (primary) hypertension Category: Medical (4) Hyperparathyroidism: Code(s): E21.3 - Hyperparathyroidism, unspecified Category: Medical (5) Gallstones: Code(s): K80.20 - Calculus of gallbladder without cholecystitis without obstruction Category: Medical (6) Decreased right shoulder range of motion: Code(s): M25.611 - Stiffness of right shoulder, not elsewhere classified Category: Medical Plan Patient is 84-year-old female came in today for her regular follow-up appointment Last set of lab was February Calcium continued to be slightly elevated, patient was seeing Dr. Burns endocrinology [facility] for the management She has been discharged. 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 Blood pressure continued to be elevated in the office patient have white coat hypertension her blood pressure is running around 120 systolic at home she is monitoring it regularly.. She is to continue amlodipine 10 mg and enalapril 20 mg daily She did bring her monitor along today and her blood pressure is 160 on her monitor as well She brought the blood pressure readings from home they are running around 120s and low teens she is also taking levothyroxine 75 mcg she is to continue that. TSH within normal limit Arthritis multiple joint, patient is taking Tylenol as needed She has a limited range of motion right shoulder which is chronic and not bothering patient diet-controlled diabetic hemoglobin A1c stable Follow-up 4 months Orders: Orders Comprehensive Met. Panel Today E03.9 - Hypothyroidism, unspecified, E13.9 - Other specified diabetes mellitus without complications, E21.3 - Hyperparathyroidism, unspecified, E55.9 - Vitamin D deficiency, unspecified, I10 - Essential (primary) hypertension, I12.9 - Hypertensive chronic kidney disease with stage 1 through stage 4 chronic kidney disease, or unspecified chronic kidney disease, M81.0 - Age-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 TSH reflex Free T4 Today E03.9 - Hypothyroidism, unspecified, E13.9 - Other specified diabetes mellitus without complications, E21.3 - Hyperparathyroidism, unspecified, E55.9 - Vitamin D deficiency, unspecified, I10 - Essential (primary) hypertension, I12.9 - Hypertensive chronic kidney disease with stage 1 through stage 4 chronic kidney disease, or unspecified chronic kidney disease, M81.0 - Age-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 Hemoglobin A1c Today E13.9 - Other specified diabetes mellitus without complications Complete Blood Count Auto Diff Today E03.9 - Hypothyroidism, unspecified, E13.9 - Other specified diabetes mellitus without complications, E21.3 - Hyperparathyroidism, unspecified, E55.9 - Vitamin D deficiency, unspecified, I10 - Essential (primary) hypertension, I12.9 - Hypertensive chronic kidney disease with stage 1 through stage 4 chronic kidney disease, or unspecified chronic kidney disease, M81.0 - Age-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 LDL Cholesterol Direct Today E03.9 - Hypothyroidism, unspecified, E13.9 - Other specified diabetes mellitus without complications, E21.3 - Hyperparathyroidism, unspecified, E55.9 - Vitamin D deficiency, unspecified, I10 - Essential (primary) hypertension, I12.9 - Hypertensive chronic kidney disease with stage 1 through stage 4 chronic kidney disease, or unspecified chronic kidney disease, M81.0 - Age-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 Vitamin D 25-OH (D2 and D3) Today E03.9 - Hypothyroidism, unspecified, E13.9 - Other specified diabetes mellitus without complications, E21.3 - Hyperparathyroidism, unspecified, E55.9 - Vitamin D deficiency, unspecified, I10 - Essential (primary) hypertension, I12.9 - Hypertensive chronic kidney disease with stage 1 through stage 4 chronic kidney disease, or unspecified chronic kidney disease, M81.0 - Age-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 Referrals General Surgery Referral K80.20 - Calculus of gallbladder without cholecystitis without obstruction
== END 2024-07-13 09:05 | disposition home or self-care (01) ==
LOC: HO.HMCC 08:10
PROVIDERS: PCP Internal Medicine; Visit Provider Internal Medicine
DX: E13.9 Other specified diabetes mellitus without complications (principal); E03.9 Hypothyroidism, unspecified; I10 Essential (primary) hypertension; E21.3 Hyperparathyroidism, unspecified; K80.20 Calculus of gallbladder without cholecystitis without obstruction; M25.611 Stiffness of right shoulder, not elsewhere classified

== ENCOUNTER 2024-07-27 09:12 | Outpatient (AMB) | payer MEDICARE, SELFPAY ==
--- NOTE | 2024-07-27 09:18 | A.OFFVIS_ITS ---
Vital Signs 07/27/24 09:40 Height 4 ft 11 in Weight 150 lb 6 oz BMI 30.4 BP 179/79 H Blood Pressure Location Lt brachial Position Sitting Pulse 91 Intake Visit Reasons: Calculus of gallbladder Intake Note: Patient is seen in office for evaluation of the gallbladder. 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 Accompanied by: Self / Same As Patient Allergies amoxicillin Allergy (Unknown, Verified 07/27/24 09:42) rash lisinopril [Zestril] Allergy (Unknown, Verified 07/27/24 09:42) tongue swelling penicillin V Allergy (Unknown, Verified 07/27/24 09:42) rash Medication List - Last Reconciled 07/27/24 by Santos Esparza MD amlodipine 10 mg PO DAILY 90 days ascorbic acid (vitamin C) 1,000 mg PO DAILY aspirin 81 mg PO DAILY enalapril maleate 20 mg PO DAILY 90 days levothyroxine 75 mcg PO DAILY 90 days multivitamin 1 tab PO DAILY omega-3 fatty acids (Fish Oil Concentrate) 1,200 mg PO DAILY HPI Comments Details: 84-year-old female patient presenting for evaluation of gallstones noted in the gallbladder. Gallbladder stones were initially identified incidentally with the workup for kidney issues. Initial ultrasound on 4raise the suspicion of a porcelain gallbladder but subsequent CT abdomen on 03/21/2024 revealed cholelithiasis without a porcelain gallbladder or secondary evidence of cholecystitis. She denies any abdominal pain in the right upper quadrant or epigastrium. She denies fatty food intolerance, nausea or vomiting. She is 6 para 6. [facility] History Vitamin D deficiency Diabetes 1.5, managed as type 2 Hypothyroidism Hyperparathyroidism Osteoporosis Surgical History Hx of cataract surgery Hx of tubal ligation History of hip surgery Social History Housing: Apartment Alcohol intake: never Patient Tobacco Use Status: Never used Tobacco e-Cigarette/Vaping Use: Never Used service: No Current occupational status: retired Cognitive needs: No Hearing needs: No Vision needs: No Review of Systems Const All systems reviewed & are unremarkable except as noted in HPI and below Denies chills, Denies fever(s), Denies headache(s), Denies poor appetite and Denies weakness ENT Denies headache(s) Card Denies chest pain, Denies irregular heart rhythm, Denies palpitations and Denies dyspnea Resp Denies cough, Denies excessive phlegm production and Denies dyspnea GI Denies abdominal pain, Denies bloating, Denies change in bowel habits, Denies constipation, Denies heartburn, Denies diarrhea, Denies nausea and Denies vomiting Denies urinary frequency Musc Denies back pain, Denies muscle weakness and Denies numbness Skin/Breast Denies changing lesions and Denies unusual bruising Neuro Denies headache(s), Denies numbness, Denies paresthesias and Denies weakness Psych Denies anxiety and Denies depression Endo Denies palpitations Gal/Lymph Denies lymphadenopathy Physical Exam Vital Signs: Last Vital Signs Pulse 91 07/27/24 09:40 BP 179/79 H 07/27/24 09:40 BMI result Body Mass Index 30.4 Const General: cooperative and no acute distress Nutritional Appearance: well nourished Orientation/consciousness: patient oriented x3 Limitations: no limitations HEENT Head: Yes normocephalic and Yes atraumatic Ears: hearing grossly normal bilaterally Resp Effort & Inspection: normal respiratory effort, no audible wheezes, no cough and no respiratory distress Cardio Jugular venous distension: no JVD GI Inspection: Yes normal to inspection Palpation (GI): Soft to palpation, nontender, no guarding, not rigid and No hepatosplenomegaly present Skin Other: Warm, dry, no rash Neuro General: patient oriented x3 Extrem General: Yes no clubbing, cyanosis or edema Assessment & Plan Assessment & Plan (1) Gallstones: Code(s): K80.20 - Calculus of gallbladder without cholecystitis without obstruction Category: Medical Plan 84-year-old female patient incidentally noted to have gallstones within the gallbladder. There was initial suspicion of a porcelain gallbladder however subsequent CT abdomen and pelvis was negative for a porcelain gallbladder. The patient has been asymptomatic with no typical gallbladder symptoms. I recommended observation with no surgical intervention at this time. We discussed the symptoms of gallbladder disease and she agreed to call if the symptoms develop. She should follow up as needed. Coding Level of Care Code New Pt Level 4 (72368) Diagnoses Gallstones K80.20
[2024-07-27 09:40] VITALS: BP 179/79; PULSE 91; BMI 30.4
== END 2024-07-27 10:08 | disposition home or self-care (01) ==
PROVIDERS: PCP Internal Medicine; Visit Provider Surgery
DX: K80.20 Calculus of gallbladder without cholecystitis without obstruction (principal)
CPT/HCPCS: 99204

== ENCOUNTER → 2024-07-27 09:12 | Outpatient (BNVA) | payer MEDICARE, SELFPAY | PROVIDERS: PCP Internal Medicine; Visit Provider Surgery | DX: K80.20 Calculus of gallbladder without cholecystitis without obstruction (principal) | CPT/HCPCS: 99202 ==

== ENCOUNTER 2024-10-09 08:09 | Outpatient (AMB) | payer MEDICARE, SELFPAY ==
--- NOTE | 2024-10-09 08:10 | A.OFFPC_ITS ---
Vital Signs 10/09/24 08:11 Height 4 ft 11 in Weight 152 lb BMI 30.7 BP 144/76 H Blood Pressure Location Lt brachial Position Sitting Respiration 18 Pulse 92 Pulse Source Pulse Oximeter Temp 97.7 F Temp Source Oral Pulse Oximetry (%) 100 Oxygen Delivery Method Room Air Intake Visit Reasons: 3m follow up Allergies amoxicillin Allergy (Unknown, Verified 10/09/24 08:11) rash lisinopril [Zestril] Allergy (Unknown, Verified 10/09/24 08:11) tongue swelling penicillin V Allergy (Unknown, Verified 10/09/24 08:11) rash Medication List - Last Reconciled 10/09/24 by Howard Johnson MD amlodipine 10 mg PO DAILY 90 days ascorbic acid (vitamin C) 1,000 mg PO DAILY aspirin 81 mg PO DAILY enalapril maleate 20 mg PO DAILY 90 days levothyroxine 75 mcg PO DAILY 90 days multivitamin 1 tab PO DAILY omega-3 fatty acids (Fish Oil Concentrate) 1,200 mg PO DAILY Tobacco use date assessed: 10/09/24 Fall risk assessment: No Falls in past year Last assessed Fall Risk: 10/09/24 Dental Screening Dental Screen Date: 10/09/24 Did you have a dental visit in the last 12 months?: Yes Did you have a dental problem in the last 6 months where you did not have access to dental care?: No Was dental information given to patient?: Patient has dentist HPI 3m follow up HPI Details - The patient is an 84-year-old female p resenting for follow-up appointment - Hypertension is managed with amlodipin e and lisinopril, displaying home readings of 112-128 mmHg systolic. - Hypothyroidism is treated with levothy roxine 75 mcg - Mild hypercalcemia persists with calci um at 10.7, requiring ongoing monitoring. Patient has hyperparathyroidism and has been evaluated by endocrinology - Kidney function, though slightly compr omised, remains steady, with the patient motivated to maintain hydration. - Winter exacerbates her joint pain; she responsibly avoids NSAIDs, using acetaminophen instead. - Asymptomatic gallstones have been eval uated by surgery and patient has decided to hold on for elective cholecystectomy. - diet-controlled diabetes stable Problem List - Essential Hypertension - Hypothyroidism - Hypercalcemia - Compromised Kidney Function - Gallstones - obesity with BMI of 30.7 - diabetes mellitus Last set of labs reviewed early July new set of lab order placed to be done by the end of next month Patient Instructions - Continue current medications as prescr ibed for hypertension and hypothyroidism. - Ensure regular hydration to support ki dney function. - Avoid non-prescription NSAIDs such as Aleve and ibuprofen. - Undergo the scheduled blood tests at t he end of October for routine monitoring. - Remain vigilant for any acute symptoms or changes in your health status, and report these accordingly. Follow-up in March patient already have appointment for Medicare wellness Review of Systems - Musculoskeletal: Reports increased jovani nt pain during colder weather. - Gastrointestinal: Denies abdominal theodore n or changes; acknowledged presence of gallstones without current complications. - Cardiovascular: Denies chest pain or s hortness of breath. - General: Emphasizes no new health prob lems or exacerbations. - Neurological: No headaches no dizziness - Ear nose throat: No sore throat no hearing difficulty no ear pain - Endocrine: No polyuria polydipsia no heat intolerance - Genitourinary: No dysuria , no blood in urine Physical Exam - General: No acute distress - HEENT: No acute findings - Neck: Supple - Respiratory system: Able to talk in f ull sentences, no audible wheeze - cardiovascular: S1-S2 regular in rat e and rhythm - Gastrointestinal: No pain - Extremities: No new findings - OFFICE SUPPORT CLERK: Alert awake oriented x3 motor se nsory intact - Skin: Normal turgor PFSH Medical History Vitamin D deficiency Diabetes 1.5, managed as type 2 Hypothyroidism Hyperparathyroidism Osteoporosis Surgical History Hx of cataract surgery Hx of tubal ligation History of hip surgery Social History Housing: Apartment Alcohol intake: never Patient Tobacco Use Status: Never used Tobacco e-Cigarette/Vaping Use: Never Used service: No Current occupational status: retired Cognitive needs: No Hearing needs: No Vision needs: No Questionnaire PHQ-9 Over the last 2 weeks, how often have you been bothered by any of the following problems? 1. Little interest or pleasure in doing things: not at all 2. Feeling down, depressed, or hopeless: not at all 3. Trouble falling or staying asleep, or sleeping too much: not at all 4. Feeling tired or having little energy: not at all 5. Poor appetite or overeating: not at all 6. Feeling bad about yourself - or that you are a failure or have let yourself or your family down: not at all 7. Trouble concentrating on things, such as reading the newspaper or watching television: not at all 8. Moving or speaking so slowly that other people could have noticed. Or the opp osite - being so fidgety or restless that you have been moving around a lot more than usual: not at all 9. Thoughts that you would be better off or of hurting yourself in some way: not at all Total score: 0 Depression Screening Interpretation: Negative Depression Screening Done: Yes 86479 - PHQ-9 Billing: Yes Source: Developed by Drs. Julio Cesar Betts, Jojo Ivan, Jaison Bahena and colleagues, with an educational zain from [email or web address]. Thrive Questionnaire Date Thrive assessed: 10/09/24 I am a: Patient What is your living situation today?: I have a steady place to live Within the past 12 months, did the food you bought not last and you didn't have the money to get more?: I choose not to answer this question Within the past 12 months, did you worry whether your food would run out before you got money to buy more?: Never true Do you have trouble paying for medicines?: No Do you have trouble getting transportation to medical appointments?: No Do you have trouble paying your heating and electricity bill?: No Do you have trouble taking care of your child, family member or friend?: No Do you have trouble with day-to-day activities such as bathing, preparing meals, shopping, managing finances, etc.?: No Are you currently unemployed and looking for a job?: No Are you interested in more education?: No Please select the resources that you would like help with: None Currently or been in a relationship where the following occur: No concerns reported THRIVE Score: 0 AUDIT C Alcohol Use Questionnaire (AUDIT-C) 1. How often do you have a drink containing alcohol?: Never 3. How often do you have six or more drinks on one occasion?: Never Total Score: 0 Score Reviewed/Action Taken: Yes DAVID-7 AMB Questionnaire DAVID-7 Date DAVID - 7 assessed: 10/09/24 Feeling nervous, anxious, or on edge: 0 = Not at all Not being able to stop or control worryin = Not at all Worrying too much about different things: 0 = Not at all Trouble relaxin = Not at all Being so restless that it is hard to sit still: 0 = Not at all Becoming easily annoyed or irritable: 0 = Not at all Feeling afraid as if something awful might happen: 0 = Not at all Total DAVID-7 score (0-4 normal; 5-9 mild; 10-14 moderate; 15-21 severe): 0 Source: Developed by Drs. Julio Cesar Betts, Jojo Ivan, Jaison Bahena and colleagues, with an educational zain from [email or web address]. DAVID-7 Assessment Billing DAVID-7 Assessment Tool: DAVID-7 Assessment 85460 Physical exam (Primary Care) Vital Signs: Last Vital Signs Temp 97.7 F 10/09/24 08:11 Pulse 92 10/09/24 08:11 Resp 18 10/09/24 08:11 BP 144/76 H 10/09/24 08:11 Pulse Ox 100 10/09/24 08:11 Oxygen Delivery Method Room Air 10/09/24 08:11 BMI result Body Mass Index 30.7 Tobacco/Smoking Status: Tobacco use Status Tobacco use date assessed 10/09/24 10/09/24 08:13 Patient Tobacco Use Status Never used Tobacco 10/09/24 08:13 e-Cigarette/Vaping Use Never Used 10/09/24 08:13 PHQ-9: PHQ-9 Score PHQ-9: Total score 0 10/09/24 08:18 Depression Screening Interpretation: Negative Thrive Assessment: Date of Thrive Assessment Date Thrive assessed 10/09/24 10/09/24 08:18 Currently or been in a relationship where the following occur: No concerns reported Coding Level of Care Code Est Pt Level 4 (91556) Complex EM visit Add On G2211 Diagnoses Hypertension, essential I10 Diabetes 1.5, managed as type 2 E13.9 Age-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 M81.0 Osteoporosis type: age-related Presence of current pathological fracture: without current pathological fracture Hyperparathyroidism E21.3 Hypothyroidism, unspecified type E03.9 Hypothyroidism type: unspecified 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 Class 1 obesity due to excess calories with serious comorbidity and body mass index (BMI) of 30.0 to 30.9 in adult E66.811; E66.09; Z68.30 Obesity classification: adult class 1 (BMI 30 - 34.9) Serious obesity comorbidity presence: with serious comorbidity Body mass index: BMI 30.0-30.9 Additional Codes DAVID-7 Assessment Billing - DAVID-7 Assessment Tool: DAVID-7 Assessment 48507 ([id number]) PHQ-9 - 51789 - PHQ-9 Billing: Yes ([id number]) Assessment & Plan Assessment & Plan (1) Hypertension, essential: Code(s): I10 - Essential (primary) hypertension Category: Medical (2) Diabetes 1.5, managed as type 2: Code(s): E13.9 - Other specified diabetes mellitus without complications Category: Medical (3) Osteoporosis: Code(s): M81.0 - Age-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 Category: Medical Qualifiers: Osteoporosis type: age-related Presence of current pathological fracture: without current pathological fracture Qualified Code(s): M81.0 - Age- 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 (4) Hyperparathyroidism: Code(s): E21.3 - Hyperparathyroidism, unspecified Category: Medical (5) Hypothyroidism: Code(s): E03.9 - Hypothyroidism, unspecified Category: Medical Qualifiers: Hypothyroidism type: unspecified Qualified Code(s): E03.9 - Hypothyroidism, unspecified (6) Lipid disorder: Code(s): E78.9 - Disorder of lipoprotein metabolism, unspecified Category: Medical (7) Obesity due to excess calories: Code(s): E66.09 - Other obesity due to excess calories Category: Medical Qualifiers: Obesity classification: adult class 1 (BMI 30 - 34.9) Serious obesity comorbidity presence: with serious comorbidity Body mass index: BMI 30.0-30.9 Qualified Code(s): E66.811 - Obesity, class 1; E66.09 - Other obesity due to excess calories; Z68.30 - Body mass index [BMI] 30.0-30.9, adult Plan - The patient is an 84-year-old female presenting for follow-up appointment - Hypertension is managed with amlodipine and lisinopril, displaying home readings of 112-128 mmHg systolic. - Hypothyroidism is treated with levothyroxine 75 mcg - Mild hypercalcemia persists with calcium at 10.7, requiring ongoing monitoring. Patient has hyperparathyroidism and has been evaluated by endocrinology - Kidney function, though slightly compromised, remains steady, with the patient motivated to maintain hydration. - Winter exacerbates her joint pain; she responsibly avoids NSAIDs, using acetaminophen instead. - Asymptomatic gallstones have been evaluated by surgery and patient has decided to hold on for elective cholecystectomy. - diet-controlled diabetes stable Problem List - Essential Hypertension - Hypothyroidism - Hypercalcemia - Compromised Kidney Function - Gallstones - obesity with BMI of 30.7 - diabetes mellitus Last set of labs reviewed early July new set of lab order placed to be done by the end of next month Patient Instructions - Continue current medications as prescribed for hypertension and hypothyroidism. - Ensure regular hydration to support kidney function. - Avoid non-prescription NSAIDs such as Aleve and ibuprofen. - Undergo the scheduled blood tests at the end of October for routine monitoring. - Remain vigilant for any acute symptoms or changes in your health status, and report these accordingly. Follow-up in March patient already have appointment for Medicare wellness Orders: Orders Complete Blood Count Auto Diff Today E03.9 - Hypothyroidism, unspecified, E13.9 - Other specified diabetes mellitus without complications, E21.3 - Hyperparathyroidism, unspecified, E78.9 - Disorder of lipoprotein metabolism, unspecified, I10 - Essential (primary) hypertension, M81.0 - Age-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 Comprehensive Met. Panel Today E03.9 - Hypothyroidism, unspecified, E13.9 - Other specified diabetes mellitus without complications, E21.3 - Hyperparathyroidism, unspecified, E78.9 - Disorder of lipoprotein metabolism, unspecified, I10 - Essential (primary) hypertension, M81.0 - Age-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 TSH reflex Free T4 Today E03.9 - Hypothyroidism, unspecified, E13.9 - Other specified diabetes mellitus without complications, E21.3 - Hyperparathyroidism, unspecified, E78.9 - Disorder of lipoprotein metabolism, unspecified, I10 - Essential (primary) hypertension, M81.0 - Age-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 Hemoglobin A1c Today E13.9 - Other specified diabetes mellitus without complications Microalbumin, Random (w Creat) Today E13.9 - Other specified diabetes mellitus without complications
[2024-10-09 08:11] VITALS: BP 144/76; PULSE 92; RESP 18; TEMP 36.5; O2SAT 100; BMI 30.7
--- OUTSIDE RECORDS SUMMARY | 2024-10-09 08:12 | XMS_ITS | Encounter Summary ---
Author Organization [employer] Address [address] [facility] [address] [place] [address] Care Team Providers Care Manager Intranet Name Role Phone Unavailable Primary Care Provider Unavailabl e Encounter Details Date Type Department Care Team (Latest Contact Info) Description 07/17/2020 Abstract [facility] CONVERSIONS Dental, Provider, DDS Social History Tobacco Use Types Packs/Day Years Used Date Smoking Tobacco: Never Assessed Comments Unknown Sex and Gender Information Value Date Recorded Sex Assigned at Female 07/05/2022 10:30 AM EDT Legal Sex Female 10:30 AM EDT Gender Identity Choose not to disclose 10:30 AM EDT Sexual Orientation Choose not to disclose 2021 10:30 AM EDT documented as of this encounter Plan of Treatment Not on file documented as of this encounter Visit Diagnoses Not on filedocumented in this encounter
--- OUTSIDE RECORDS SUMMARY | 2024-10-09 08:12 | XMS_ITS | Encounter Summary ---
Author Organization [employer] Address [address] [facility] [address] [place] [address] Care Team Providers Care Chief Human Resources Officer Name Role Phone Unavailable Primary Care Provider Unavailabl e Encounter Details Date Type Department Care Team (Latest Contact Info) Description 10/02/2018 Abstract [facility] CONVERSIONS Dental, Provider, DDS Social History Tobacco [...]
--- OUTSIDE RECORDS SUMMARY | 2024-10-09 08:12 | XMS_ITS | Clinical Summary ---
Author Organization [employer] Address [address] [place] [address] 7[address] [place] [address] Care Team Providers Care Dragline Oiler Name Role Phone Unavailable Primary Care Provider Unavailabl e Immunizations Name Administration Dates Next Due Influenza, seasonal, injectable, preservative fr ee 05/28/2024 Social History Tobacco Use Types Packs/Day Years Used Date Smoking Tobacco: Never Assessed Comments Unknown Sex and Gender Information Value Date Recorded Sex Assigned at Female 07/05/2022 10:30 AM EDT Legal Sex Female 10:30 AM EDT Gender Identity Choose not to disclose 10:30 AM EDT Sexual Orientation Choose not to disclose 2021 10:30 AM EDT Plan of Treatment Health Maintenance Due Date Last Done Comments Depression Screening 1940 SDOH Screening 1940 Alcohol/Substance Use Screening 1952 Tobacco Screening 1952 DTaP/Tdap/Td Vaccines (1 - Tdap) 1959 Zoster Vaccines (1 of 2) 1990 RSV Patients and Patients Aged 60 years or older (1 - 1-dose 75+ series) 2015 Pneumococcal Vaccine: 50+ Years (2 of 2 - PPSV23) 02/17/2018 02/17/2017, 02/03/2017 COVID-19 Vaccine ( season) 2024 09/10/2021, 01/07/2021, 12/17/2020 Influenza Vaccine Completed 05/28/2024, , 05/28/2019, Additional history exists HIB Vaccines Aged Out No longer eligi ble based on patient's age to complete this topic HPV Vaccines Aged Out No longer eligi ble based on patient's age to complete this topic Hepatitis A Vaccines Aged Out No long er eligible based on patient's age to complete this topic Hepatitis B Vaccines Aged Out No long er eligible based on patient's age to complete this topic IPV Vaccines Aged Out No longer eligi ble based on patient's age to complete this topic Meningococcal Vaccine Aged Out No osiris amber eligible based on patient's age to complete this topic RSV under 20 months Aged Out No longe r eligible based on patient's age to complete this topic Rotavirus Vaccines Aged Out No longer eligible based on patient's age to complete this topic Insurance MEDICARE
--- OUTSIDE RECORDS SUMMARY | 2024-10-09 08:12 | XMS_ITS | Encounter Summary ---
Author Organization [employer] Address [address] [facility] [address] [place] [address] Care Team Providers Care Photographic Specialist Name Role Phone Unavailable Primary Care Provider Unavailabl e Encounter Details Date Type Department Care Team (Latest Contact Info) Description 05/15/2021 Abstract [facility] CONVERSIONS Dental, Provider, DDS Social History Tobacco [...]
== END 2024-10-09 09:38 | disposition home or self-care (01) ==
PROVIDERS: PCP Internal Medicine; Visit Provider Internal Medicine
DX: I10 Essential (primary) hypertension (principal); E13.9 Other specified diabetes mellitus without complications; M81.0 Age-related osteoporosis without current pathological fracture; E21.3 Hyperparathyroidism, unspecified; E03.9 Hypothyroidism, unspecified; E78.9 Disorder of lipoprotein metabolism, unspecified; E66.811 Obesity, class 1; E66.09 Other obesity due to excess calories; Z68.30 Body mass index [BMI] 30.0-30.9, adult

== ENCOUNTER → 2024-10-09 08:09 | Outpatient (BNVA) | payer MEDICARE, SELFPAY | PROVIDERS: PCP Internal Medicine; Visit Provider Internal Medicine | DX: I10 Essential (primary) hypertension (principal); E13.9 Other specified diabetes mellitus without complications; M81.0 Age-related osteoporosis without current pathological fracture; E21.3 Hyperparathyroidism, unspecified; E03.9 Hypothyroidism, unspecified; E78.9 Disorder of lipoprotein metabolism, unspecified; E66.09 Other obesity due to excess calories; Z68.30 Body mass index [BMI] 30.0-30.9, adult; Z71.3 Dietary counseling and surveillance | CPT/HCPCS: 96127; 99212 ==

== ENCOUNTER 2024-10-30 07:34 | Outpatient (REF) | payer MEDICARE, SELFPAY ==
--- OUTSIDE RECORDS SUMMARY | 2024-10-30 07:38 | XMS_ITS | Clinical Summary ---
Author Organization [employer] Address [address] [place] [address] [address] [place] [address] Care Team Providers Care Crewman Main Battle Tank Name Role Phone Unavailable Primary Care Provider [...]
--- OUTSIDE RECORDS SUMMARY | 2024-10-30 07:38 | XMS_ITS | Encounter Summary ---
Author Organization [employer] Address [address] [facility] 7t [place] [address] Care Team Providers Care Sales Representative Supervisor Name Role Phone Unavailable Primary Care Provider [...]
--- OUTSIDE RECORDS SUMMARY | 2024-10-30 07:38 | XMS_ITS | Encounter Summary ---
Author Organization [employer] Address [address] [facility] [address] [place] [address] Care Team Providers Care Karate Instructor Name Role Phone Unavailable Primary Care Provider Unavailabl e Encounter Details Date Type Department Care Team (Latest Contact Info) Description 07/17/2020 Abstract [facility] CONVERSIONS Dental, Provider, DDS Social History Tobacco [...]
--- OUTSIDE RECORDS SUMMARY | 2024-10-30 07:38 | XMS_ITS | Encounter Summary ---
Author Organization [employer] Address [address] [facility] [address] [place] [address] Care Team Providers Care Credentialing Assistant Name Role Phone Unavailable Primary Care Provider Unavailabl e Encounter Details Date Type Department Care Team (Latest Contact Info) Description 10/02/2018 Abstract [facility] CONVERSIONS Dental, Provider, DDS Social [...]
[2024-10-30 10:03] LABS: MANUAL DIFF FLAG NO
[2024-10-30 10:08] LABS: Basophils Absolute Auto 0.1 X10*3/uL (0.0-0.2); Basophils Percent Auto 0.7 % (0-2); Eosinophils Absolute Auto 0.3 X10*3/uL (0.0-0.4); Eosinophils Percent Auto 3.7 % (0-4); Hematocrit 41.7 % (37.0-47.0); Hemoglobin 13.1 g/dl (12.0-16.0); Imm Gran Abs Auto 0.03 X10*3/uL (0.00-0.03); Imm Gran Pct Auto 0.3 % (0.0-0.4); Lymphocytes Absolute Auto 3.6 X10*3/uL (1.2-4.9); Mean Corpuscular HGB Conc 31.4 g/dl (31.0-35.0); Mean Corpuscular Hemoglobin 27.9 pg (27.0-33.0); Mean Corpuscular Volume 88.9 fL (80.0-98.0); Mean Platelet Volume 9.5 fL (9.4-12.3); Monocytes Absolute Auto 0.8 X10*3/uL (0.1-1.2); Monocytes Percent Auto 9.4 % (2-11); Neutrophils Absolute Auto 4.1 x10*3/uL (2.0-8.3); Neutrophils Percent Auto 45.9 % (45-73); Platelet Count 332 X10*3/uL (160-400); Red Blood Count 4.69 X10*6/uL (4.20-5.50); Red Cell Distribution Width 13.4 % (11.0-16.0)
[2024-10-30 10:26] LABS: Alanine Aminotransferase 8 U/L (0-31); Albumin Level 4.2 g/dL (3.5-5.0); Alkaline Phosphatase 83 U/L (39-117); Anion Gap 13 (12-20); Aspartate Amino Transferase 26 U/L (5-31); Bilirubin Total 0.6 mg/dL (0.0-1.0); Blood Urea Nitrogen 20 mg/dL (9-16); Calcium 10.3 mg/dL (8.4-10.2); Carbon Dioxide 24 mmol/L (22-29); Chloride 108 mmol/L (96-108); Estimated Average Glucose 120 mg/dL; Estimated Glomerular Filt Rate > 60; Glucose Random 110 mg/dL (60-115); Hemoglobin A1c % 5.8 % (<6.0); Potassium 4.6 mmol/L (3.3-5.1); Sodium 140 mmol/L (135-145); Total Hemoglobin (HGBA1C) 3376.5796 umol/L; Total Protein 8.5 g/dL (6.5-8.0)
[2024-10-30 10:46] LABS: Creatinine Urine 64.05 mg/dL; Microalbum/Creatinine Ratio Ur 37.4 ug/mg cr (<30); TSH reflex Free T4 2.45 uIU/mL (0.32-4.0)
== END 2024-10-30 07:35 | disposition home or self-care (01) ==
LOC: HO.HMGCLDS 07:34
PROVIDERS: PCP Internal Medicine; Visit Provider Internal Medicine
DX: I10 Essential (primary) hypertension (principal); E78.9 Disorder of lipoprotein metabolism, unspecified; E21.3 Hyperparathyroidism, unspecified; E03.9 Hypothyroidism, unspecified; E13.9 Other specified diabetes mellitus without complications; M81.0 Age-related osteoporosis without current pathological fracture
CPT/HCPCS: 36415; 80053; 82043; 82570; 83036; 84443; 85025

== ENCOUNTER 2024-12-20 09:51 | Outpatient (AMB) | payer MEDICARE, SELFPAY ==
--- NOTE | 2024-12-20 09:52 | A.OFFVIS_ITS ---
Vital Signs 12/20/24 09:58 Height 4 ft 11 in Weight 151 lb 14.376 oz BMI 30.7 BP 140/70 H Blood Pressure Location Lt brachial Position Sitting Intake Visit Reasons: ? gallstones Intake Note: Patient is seen in office for follow up visit, following on gallbladder. Pt c/o: dull pain comes and goes RUQ, denies any other symptoms such as nausea, vomit or diarrhea L.OV:07/27/24 Press Hand Supervisor Required: No Accompanied by: Self / Same As Patient Allergies amoxicillin Allergy (Unknown, Verified 12/20/24 09:59) rash lisinopril [Zestril] Allergy (Unknown, Verified 12/20/24 09:59) tongue swelling penicillin V Allergy (Unknown, Verified 12/20/24 09:59) rash Medication List - Last Reconciled 12/20/24 by Santos Esparza MD amlodipine 10 mg PO DAILY 90 days ascorbic acid (vitamin C) 1,000 mg PO DAILY aspirin 81 mg PO DAILY enalapril maleate 20 mg PO DAILY 90 days levothyroxine 75 mcg PO DAILY 90 days multivitamin 1 tab PO DAILY omega-3 fatty acids (Fish Oil Concentrate) 1,200 mg PO DAILY HPI Comments Details: 84-year-old female patient presenting for evaluation of gallstones noted in the gallbladder. Gallbladder stones were initially identified incidentally with the workup for kidney issues. Initial ultrasound on 01/09/2024 raised the suspicion of a porcelain gallbladder but subsequent CT abdomen on 03/21/2024 r evealed cholelithiasis without a porcelain gallbladder or secondary evidence of cholecystitis. Since her last visit on 07/27/2024, she now notes some episodes of abdominal pain in the right upper quadrant which last several minutes to several hours without radiation. The pain is generally associated with fatty food intake but without any associated nausea or vomiting. She denies fever or chills. As the symptoms seemed to be progressing the patient is interested in proceeding to cholecystectomy. [facility] Medical History Vitamin D deficiency Diabetes 1.5, managed as type 2 Hypothyroidism Hyperparathyroidism Osteoporosis Surgical History Hx of cataract surgery Hx of tubal ligation History of hip surgery Social History Housing: Apartment Alcohol intake: never Patient Tobacco Use Status: Never used Tobacco e-Cigarette/Vaping Use: Never Used service: No Current occupational status: retired Cognitive needs: No Hearing needs: No Vision needs: No Review of Systems Const All systems reviewed & are unremarkable except as noted in HPI and below Denies chills, Denies fever(s), Denies headache(s), Denies poor appetite and Denies weakness ENT Denies headache(s) Card Denies chest pain, Denies irregular heart rhythm, Denies palpitations and Denies dyspnea Resp Denies cough, Denies excessive phlegm production and Denies dyspnea GI Reports abdominal pain, Denies bloating, Denies change in bowel habits, Denies constipation, Denies heartburn, Denies diarrhea, Denies nausea and Denies vomiting Denies urinary frequency Musc Denies back pain, Denies muscle weakness and Denies numbness Skin/Breast Denies changing lesions and Denies unusual bruising Neuro Denies headache(s), Denies numbness, Denies paresthesias and Denies weakness Psych Denies anxiety and Denies depression Endo Denies palpitations Gal/Lymph Denies lymphadenopathy Physical Exam Const General: cooperative and no acute distress Nutritional Appearance: well nourished Orientation/consciousness: patient oriented x3 Limitations: no limitations HEENT Head: Yes normocephalic and Yes atraumatic Ears: hearing grossly normal bilaterally Resp Effort & Inspection: normal respiratory effort, no audible wheezes, no cough and no respiratory distress Cardio Jugular venous distension: no JVD GI Other: Negative Zheng sign Inspection: Yes normal to inspection Palpation (GI): Soft to palpation, nontender, no guarding, not rigid and No hepatosplenomegaly present Skin Other: Warm, dry, no rash Neuro General: patient oriented x3 Extrem General: Yes no clubbing, cyanosis or edema Assessment & Plan Assessment & Plan (1) Recurrent biliary colic: Code(s): K80.50 - Calculus of bile duct without cholangitis or cholecystitis without obstruction Category: Medical Plan 84-year-old female patient presenting for re-evaluation of gallstones which have now become more symptomatic with pain in the right upper quadrant without nausea or vomiting. The pain seems to be related to dietary intake. On examination her abdomen is soft and nondistended with a negative Zheng sign. The patient is interested in proceeding to cholecystectomy and after discussion of the procedure, risks, and alternatives, she consents to a laparoscopic or possible open cholecystectomy. She will be scheduled as a short-stay surgery at her earliest convenience. Coding Level of Care Code Est Pt Level 3 (18803) Diagnoses Recurrent biliary colic K80.50
[2024-12-20 09:58] VITALS: BP 140/70; BMI 30.7
--- OUTSIDE RECORDS SUMMARY | 2024-12-20 11:27 | XMS_ITS | Encounter Summary ---
Author Organization [employer] Address [address] [facility] 7t [place] [address] Care Team Providers Care Wine Steward/Stewardess Name Role Phone Unavailable Primary Care Provider Unavailabl e Encounter Details Date Type Department Care Team (Latest Contact Info) Description 07/17/2020 Abstract [facility] CONVERSIONS Dental, Provider, DDS Social History [...]
--- OUTSIDE RECORDS SUMMARY | 2024-12-20 11:27 | XMS_ITS | Clinical Summary ---
Author Organization [employer] Address [address] [place] [address] [address] [place] [address] Care Team Providers Care Environmental Sampling Technician Name Role Phone Unavailable Primary Care Provider [...]
--- OUTSIDE RECORDS SUMMARY | 2024-12-20 11:27 | XMS_ITS | Encounter Summary ---
Author Organization [employer] Address [address] [facility] 7t [place] [address] Care Team Providers Care Sap Bw Architect Name Role Phone Unavailable Primary Care Provider [...]
--- OUTSIDE RECORDS SUMMARY | 2024-12-20 11:27 | XMS_ITS | Encounter Summary ---
Author Organization [employer] Address [address] [facility] [address]t [place] [address] Care Team Providers Care Wafer Cutter Name Role Phone Unavailable Primary Care Provider [...]
== END 2024-12-20 10:20 | disposition home or self-care (01) ==
PROVIDERS: PCP Internal Medicine; Visit Provider Surgery
DX: K80.50 Calculus of bile duct without cholangitis or cholecystitis without obstruction (principal)
CPT/HCPCS: 99213

== ENCOUNTER → 2024-12-20 09:51 | Outpatient (BNVA) | payer MEDICARE, SELFPAY | PROVIDERS: PCP Internal Medicine; Visit Provider Surgery | DX: K80.50 Calculus of bile duct without cholangitis or cholecystitis without obstruction (principal) | CPT/HCPCS: 99212 ==

== ENCOUNTER 2025-01-16 11:11 | Day surgery (SDC) | payer MEDICARE, SELFPAY ==
--- OUTSIDE RECORDS SUMMARY | 2025-01-01 06:50 | XMS_ITS | Encounter Summary ---
Author Organization [employer] Address [address] [facility] [address] [place] [address] Care Team Providers Care Assistant Research Scientist Name Role Phone Unavailable Primary Care Provider [...]
--- OUTSIDE RECORDS SUMMARY | 2025-01-01 06:50 | XMS_ITS | Encounter Summary ---
Author Organization [employer] Address [address] [facility] 7t [place] [address] Care Team Providers Care Sports Management Professor Name Role Phone Unavailable Primary Care Provider Unavailabl e Encounter Details Date Type Department Care Team (Latest Contact Info) Description 07/17/2020 Abstract [facility] CONVERSIONS Dental, Provider, DDS Social History [...]
--- OUTSIDE RECORDS SUMMARY | 2025-01-01 06:50 | XMS_ITS | Encounter Summary ---
Author Organization [employer] Address [address] [facility] 7t [place] [address] Care Team Providers Care Dye And Chemical Coordinator Name Role Phone Unavailable Primary Care Provider [...]
[2025-01-14 08:15] VITALS: BMI 30.5
[2025-01-16] VITALS (7 sets, daily range): BP systolic 131–165; BP diastolic 45–85; PULSE 69–88; RESP 14–18; TEMP 36.3–36.8; O2SAT 95–100; BMI 29.5
[2025-01-16] MEDS: Lactated Ringers 1,000 ML 100 ML IVCONT (12:07)
--- NOTE | 2025-01-16 12:12 | MHC.SHP ---
Pre-Procedural Eval Section A - 24 Hr Update-Section A only Date of Service: 01/16/25 The patient is an INPATIENT: No Changes since office visit: Yes Patient answered all questions; No Cold of Flu in the past 2 weeks, No New Medical Problems and No Changes in Medication The patient has been examined within 24 hours of the surgical procedure. The History & Physical has been completed within 30 days and I have reviewed it.: Yes Section B - Complete if H&P > 30 days Chief Complaint: Calculus of bile duct without cholangitis or elsa Allergies: Allergies Allergy/AdvReac Type Severity Reaction Status Date / Time amoxicillin Allergy Unknown rash Verified 01/16/25 11:46 lisinopril [Zestril] Allergy Unknown tongue Verified 01/16/25 11:46 swelling penicillin V Allergy Unknown rash Verified 01/16/25 11:46 Plan Diagnosis/Plan: Unchanged I have reviewed the history and physical and performed a pertinent physical examination on my patient. No changes have occurred unless specified. Time Spent With Patient Time: Total time managing care of this patient today ____ minutes.
[2025-01-16 12:19] LABS: Glucose, Whole Blood 120 mg/dL (60-115)
--- NOTE | 2025-01-16 12:34 | P.CONAN_ITS ---
Documented by User: Abbey Helms NP 01/15/25 09:23 HPI - Anesthesia Eval Consult details Narrative: 84yo F for Cholecystectomy Laparoscopic, possible open PMFSH Active Problems Active Problems: All Active Problems Recurrent biliary colic (Acute) Obesity due to excess calories (Acute) Decreased right shoulder range of motion (Acute) Gallstones (Acute) Gall bladder disease (Acute) White coat syndrome with diagnosis of hypertension (Acute) Medicare annual wellness visit, subsequent (Acute) DNR (do not resuscitate) (Acute) Excessive cerumen in right ear canal (Acute) Difficulty hearing (Acute) Impacted cerumen of both ears (Acute) Hypertensive nephropathy (Acute) Serum potassium elevated (Acute) Vitamin D deficiency (Acute) Diabetes 1.5, managed as type 2 (Acute) Hypothyroidism (Acute) Hyperparathyroidism (Acute) Elevated blood pressure reading (Acute) Arthrosis (Acute) Lipid disorder (Acute) Hypertension, essential (Acute) Osteoporosis (Acute) Dysuria (Acute) Past Medical History Medical History Diet-controlled diabetes mellitus Vitamin D deficiency Hypothyroidism Hyperparathyroidism Osteoporosis Surgical History Surgical History Hx of cataract surgery Hx of tubal ligation History of hip surgery Social History Social History Housing: Apartment Are you a primary rn patient care to a significant other at home: No Do you presently have visiting nurse or other home services: No Alcohol intake: never Patient Tobacco Use Status: Never used Tobacco e-Cigarette/Vaping Use: Never Used Use of substances other than those prescribed or required for medical reasons: No Have you been hit, kicked, punched, or otherwise hurt by someone within the past year? If so, by whom?: No Are you DNR?: No Advance Directives: No Advance Directives Information Provided: Yes Patient : No Poor oral hygiene: No service: No Current occupational status: retired Cognitive needs: No Hearing needs: No Vision needs: No Meds Allergies Allergy/AdvReac Type Severity Reaction Status Date / Time amoxicillin Allergy Unknown rash Verified 01/16/25 11:46 lisinopril [Zestril] Allergy Unknown tongue Verified 01/16/25 11:46 swelling penicillin V Allergy Unknown rash Verified 01/16/25 11:46 Home Medications ?Medication ?Instructions ?Recorded ?Confirmed ?Last Taken ?Type aspirin 81 mg chewable tablet 81 mg PO DAILY 09/09/20 01/16/25 01/14/25 History ascorbic acid (vitamin C) 1,000 mg 1,000 mg PO DAILY 11/21/20 01/16/25 Unknown History tablet multivitamin 1 tab PO DAILY 11/21/20 01/16/25 Unknown History omega-3 fatty acids 1,000 mg 1,200 mg PO DAILY 11/21/20 01/16/25 01/07/25 History capsule (Fish Oil Concentrate) Exam Height,Weight and Vital Signs: Height 4 ft 11 in Weight 68.492 kg Pertinent Lab Results Pertinent Lab Results: Laboratory Tests 10/30/24 08:01 WBC 9.0 Hgb 13.1 Hct 41.7 Plt Count 332 Sodium 140 Potassium 4.6 Chloride 108 Carbon Dioxide 24 BUN 20 H Creatinine 0.80 Laboratory Tests 10/30/24 08:01 Hemoglobin A1c % 5.8 Assessment and Plan Assessment Anesthesia Assessment: Chart Reviewed Documented by User: Holly Hernandez DO 01/16/25 12:36 PMFSH Past Medical History Medical History Diet-controlled diabetes mellitus Vitamin D deficiency Hypothyroidism Hyperparathyroidism Osteoporosis Family History Family history of problems with anesthesia: No Surgical History Surgical History Hx of cataract surgery Hx of tubal ligation History of hip surgery History of Problems with Anesthesia: No Social History Social History Housing: Apartment Are you a primary rn patient care to a significant other at home: No Do you presently have visiting nurse or other home services: No Alcohol intake: never Patient Tobacco Use Status: Never used Tobacco e-Cigarette/Vaping Use: Never Used Use of substances other than those prescribed or required for medical reasons: No Have you been hit, kicked, punched, or otherwise hurt by someone within the past year? If so, by whom?: No Are you DNR?: No Advance Directives: No Advance Directives Information Provided: Yes Patient : No Poor oral hygiene: No service: No Current occupational status: retired Cognitive needs: No Hearing needs: No Vision needs: No Meds Allergies Allergy/AdvReac Type Severity Reaction Status Date / Time amoxicillin Allergy Unknown rash Verified 01/16/25 11:46 lisinopril [Zestril] Allergy Unknown tongue Verified 01/16/25 11:46 swelling penicillin V Allergy Unknown rash Verified 01/16/25 11:46 Home Medications ?Medication ?Instructions ?Recorded ?Confirmed ?Last Taken ?Type aspirin 81 mg chewable tablet 81 mg PO DAILY 09/09/20 01/16/25 01/14/25 History ascorbic acid (vitamin C) 1,000 mg 1,000 mg PO DAILY 11/21/20 01/16/25 Unknown History tablet multivitamin 1 tab PO DAILY 11/21/20 01/16/25 Unknown History omega-3 fatty acids 1,000 mg 1,200 mg PO DAILY 11/21/20 01/16/25 01/07/25 History capsule (Fish Oil Concentrate) Exam Exam Date and Time: 01/16/35 1234 Height,Weight and Vital Signs: Height 4 ft 11 in Weight 68.492 kg Vital Signs Temperature 98.2 F 01/16/25 12:07 Pulse Rate 88 01/16/25 12:07 Respiratory Rate 14 01/16/25 12:07 Blood Pressure 165/85 H 01/16/25 12:07 Pulse Oximetry 99 01/16/25 12:07 Oxygen Delivery Method Room Air 01/16/25 12:07 Temperature 98.2 F 01/16/25 12:07 Pulse Rate 88 01/16/25 12:07 Respiratory Rate 14 01/16/25 12:07 Blood Pressure 165/85 H 01/16/25 12:07 Pulse Oximetry 99 01/16/25 12:07 Oxygen Delivery Method Room Air 01/16/25 12:07 Airway Mallampati Class: I TM Dist: >3cm Neck ROM: Full Loose/Missing/Broken Teeth: Yes (multiple missing teeth) Heart: S1S2 Lungs: CTAB Assessment and Plan Assessment Anesthesia Assessment: Anesthesia Plan Discussed and Chart Reviewed Final Anesthetic Review Family History of Problems with Anesthesia: No History of Problems with Anesthesia: No NPO: Yes ASA Class: II Final Preanesthetic Review: No Changes in Pt Med Stat, Meds/Allgs Chart Reviewed, Consent Obtained/Reviewed and Anes Risks/Benef Reviewed Patient Risk: Low Procedure Risk: Low Anesthetic Plan Anesthetic Plan: GA and Agree w/ Assess. and Plan Disposition: Standard PACU
--- NOTE | 2025-01-16 13:48 | P.OP_ITS ---
Operative Note Operative Note Date of Service: 01/16/25 Narrative: Preoperative diagnosis: Recurrent biliary colic, cholelithiasis Postoperative diagnosis: Same Procedure: Laparoscopic cholecystectomy Surgeon: Santos Esparza MD Treating Machine Operator: EMMANUEL Larry, INOCENTE Godinez Anesthesia: General endotracheal Indications for procedure: 84-year-old female patient presenting with complaints of abdominal pain in the right upper quadrant and intermittently associated with fatty food intake. Patient was found to have multiple gallstones within the gallbladder presents today for laparoscopic or possible open cholecystectomy. Operative findings: Gallstone noted at the neck of the gallbladder impacted with multiple small gallstones within the gallbladder. Specimen: gallbladder Estimated blood loss: Less than 2 mL Complications: None Procedure details: Patient was brought to the OR and placed in a supine position. After administering general anesthesia the patient's abdomen was prepped with ChloraPrep and draped in a sterile fashion. A surgical time-out was called the consent confirmed. Patient received preoperative antibiotics and Venodyne boots were in place. Local anesthesia consisting of 0.5% Sensorcaine without epinephrine was infiltrated in a periumbilical region. A 5 mm incision was made above the umbilicus in a transverse fashion. The Veress needle was then inserted while elevating abdominal cavity with towel clips. After positive drop test the abdomen was insufflated to a pressure of 15 mm of mercury. The Veress needle was then removed and a 5 mm trocar inserted. The camera was inserted in the abdomen explored. A 12 mm trocar was then placed in the epigastrium. Two 5 mm trocars placed in the right upper quadrant by the laundry assistant. The patient was placed in reverse Trendelenburg positioning and rotated to the left. The gallbladder was grasped with the fundus and retracted cephalad by the laundry assistant. The infundibulum was then grasped and retracted away from the liver bed, also by the laundry assistant. The Dolphin dissected was then used by the surgeon to dissect the peritoneum off the infundibulum to reveal the junction with the cystic duct. Cystic artery was noted slightly medial and posterior to the cystic duct. After obtaining a critical view the cystic duct was doubly clipped and divided. The cystic artery was then doubly clipped and divided. The gallbladder was then dissected off the liver bed using electrocautery with an L hook. Hemostasis was assured all times using the electrocautery. When the gallbladder is completely dissected off the liver bed was placed in an Endo-Catch bag and brought out through the epigastric incision. The gallbladder was sent to pathology for further examination. The abdomen was then re-examined. The liver bed was irrigated and suctioned dry. No bleeding or bile leak could be identified. CO2 was then evacuated and all trocars removed. Fascia was closed at the epigastric incision using a [id number] 0 Polysorb suture. Skin was closed in all incisions using a subcuticular 4 0 Polysorb suture by both the surgeon and laundry assistant. Sterile dressings consisting of Steri-Strips, 2 x 2 gauze, and Tegaderm were then applied. The patient tolerated the procedure well. Sponge instrument and needle counts reported as correct. The patient was transferred to PACU in stable condition.
== END 2025-01-16 14:54 | disposition home or self-care (01) ==
PROVIDERS: PCP Internal Medicine; Visit Provider Surgery
PROC: 0FT44ZZ Resection of Gallbladder, Percutaneous Endoscopic Approach (ICD-10-PCS; CPT 47562; principal; 2025-01-16 13:00)
DX: K80.10 Calculus of gallbladder with chronic cholecystitis without obstruction (principal); E13.9 Other specified diabetes mellitus without complications; E55.9 Vitamin D deficiency, unspecified; E03.9 Hypothyroidism, unspecified; E21.3 Hyperparathyroidism, unspecified; M81.0 Age-related osteoporosis without current pathological fracture; I10 Essential (primary) hypertension; Z79.82 Long term (current) use of aspirin; Z79.899 Other long term (current) drug therapy; Z88.0 Allergy status to penicillin; Z88.1 Allergy status to other antibiotic agents; Z88.8 Allergy status to other drugs, medicaments and biological substances; Z98.890 Other specified postprocedural states
CPT/HCPCS: 47562; 82947; 88304; J0131; J0665; J1100; J1836; J2003; J2405; J2704; J3010

== ENCOUNTER → 2025-01-16 11:11 | Outpatient (BNV) | payer MEDICARE, SELFPAY | PROVIDERS: PCP Internal Medicine; Visit Provider Surgery | DX: K80.20 Calculus of gallbladder without cholecystitis without obstruction (principal) | CPT/HCPCS: 47562 ==

== ENCOUNTER 2025-01-30 11:03 | Outpatient (AMB) | payer MEDICARE, SELFPAY ==
--- NOTE | 2025-01-30 11:22 | MHC.OFFVIS ---
Vital Signs 01/30/25 11:29 Height 4 ft 11 in Weight 150 lb 2 oz BMI 30.3 BP 204/84 H Blood Pressure Location Lt brachial Position Sitting Pulse 97 Intake Visit Reasons: S/P landry Esparza pt Intake Note: Patient is seen in office for post op assessment post laparoscopic cholecystectomy. Pt c/o: denies any concerns Medical Anthropology Director Required: No Accompanied by: Self / Same As Patient Allergies amoxicillin Allergy (Unknown, Verified 01/30/25 11:28) rash lisinopril [Zestril] Allergy (Unknown, Verified 01/30/25 11:28) tongue swelling penicillin V Allergy (Unknown, Verified 01/30/25 11:28) rash HPI HPI S/P landry Esparza pt : Details: Patient presents for follow up and wound check. She underwent laparoscopic cholecystectomy on 01/16/[address] Esparza for recurrent biliary colic, cholelithiasis. She tolerated the procedure well. She denied any significant abdominal pain post procedure and did not require any analgesics. She reports some very mild discomfort at epigastric port site from the steri strips. She is tolerating a solid diet without nausea/vomiting and is back to her baseline diet. She is moving her bowels without difficulty. She is ambulating without difficulty. She denies fevers, chills, diarrhea. She is wondering when she can resume yoga and her strength training but has no concerns. [facility] Medical History Diet-controlled diabetes mellitus Vitamin D deficiency Hypothyroidism Hyperparathyroidism Osteoporosis Surgical History (Updated 01/29/25 @ 10:36 by JEMAL Lopez) History of laparoscopic cholecystectomy (01/16/25) Hx of cataract surgery Hx of tubal ligation History of hip surgery Social History Housing: Apartment Are you a primary insurance healthcare representative to a significant other at home: No Do you presently have visiting nurse or other home services: No Alcohol intake: never Patient Tobacco Use Status: Never used Tobacco e-Cigarette/Vaping Use: Never Used service: No Current occupational status: retired Cognitive needs: No Hearing needs: No Vision needs: No Review of Systems Const Denies chills and Denies fever(s) ENT Denies dizziness Card Denies chest pain and Denies dyspnea Resp Denies cough and Denies dyspnea GI Reports as per HPI, Denies nausea and Denies vomiting Skin/Breast Denies rash and Denies jaundice Neuro Denies dizziness Physical Exam Vital Signs: Last Vital Signs Pulse 97 01/30/25 11:29 BP 204/84 H 01/30/25 11:29 BMI result Body Mass Index 30.3 Const General: comfortable, no acute distress and alert Orientation/consciousness: patient oriented x3 Resp Effort & Inspection: normal respiratory effort and not labored GI Other: incisions are well approximated and well healed, no erythema or edema, Inspection: No distended Palpation (GI): Soft to palpation, nontender, no guarding and not rigid Skin General skin exam: no rashes or lesions noted and no jaundice Neuro General: patient oriented x3 and moves all extremities Results Reviewed Results Reviewed: Gallbladder, cholecystectomy: Chronic cholecystitis; cholelithiasis Assessment & Plan Assessment & Plan (1) Recurrent biliary colic: Code(s): K80.50 - Calculus of bile duct without cholangitis or cholecystitis without obstruction Category: Medical Plan 84 year old female s/p laparoscopic cholecystectomy on 01/16/25 for recurrent biliary colic. She tolerated the procedure well and is doing very well post op. Her abdomen is benign with clean, well healed incisions. DIscussed she can return to yoga but would hold off on strenuous activities/heavy lifting for another week. She can follow up as needed, or if concerns arise. She is comfortable with plan, all questions answered. Coding Level of Care Code Global (31473) Diagnoses Recurrent biliary colic K80.50
[2025-01-30 11:29] VITALS: BP 204/84; PULSE 97; BMI 30.3
--- OUTSIDE RECORDS SUMMARY | 2025-01-30 12:05 | XMS_ITS | Clinical Summary ---
Author Organization [employer] Address [address] [facility] 7t [place] [address] Care Team Providers Care Carpentry Foreman Name Role Phone Unavailable Primary Care Provider Unavailabl e Immunizations Immunization Administration Dates Next Due Influenza, seasonal, injectable, [...] patient's age to complete this topic Meningococcal B Vaccine Aged Out No l onger eligible based on patient's age to complete [...]
== END 2025-01-30 11:31 | disposition home or self-care (01) ==
LOC: HO.HGS 11:05
PROVIDERS: PCP Internal Medicine; Visit Provider Physician Assistant Surgical
DX: K80.50 Calculus of bile duct without cholangitis or cholecystitis without obstruction (principal)
CPT/HCPCS: 99024

== ENCOUNTER → 2025-01-30 11:03 | Outpatient (BNVA) | payer MEDICARE, SELFPAY | PROVIDERS: PCP Internal Medicine; Visit Provider Physician Assistant Surgical | DX: K80.50 Calculus of bile duct without cholangitis or cholecystitis without obstruction (principal) | CPT/HCPCS: 99212 ==

== ENCOUNTER 2025-03-20 10:05 | Outpatient (AMB) | payer MEDICARE, SELFPAY ==
[2025-03-20 10:11] VITALS: BP 170/68; PULSE 80; O2SAT 98; BMI 29.7
--- NOTE | 2025-03-20 10:11 | A.OFFVIS_ITS ---
Intake Vital Signs 03/20/25 10:11 Height 4 ft 11 in Weight 147 lb BMI 29.7 BP 170/68 H Blood Pressure Location Lt brachial Position Sitting Pulse 80 Pulse Source Pulse Oximeter Pulse Oximetry (%) 98 Oxygen Delivery Method Room Air Intake Visit Reasons: [facility] G0439 Chemist Required: No Allergies amoxicillin Allergy (Unknown, Verified 03/20/25 10:11) rash lisinopril (Zestril) Allergy (Unknown, Verified 03/20/25 10:11) tongue swelling penicillin V Allergy (Unknown, Verified 03/20/25 10:11) rash Medication List - Last Reconciled 03/20/25 by Howard Johnson MD amlodipine 10 mg PO DAILY 90 days ascorbic acid (vitamin C) 1,000 mg PO DAILY aspirin 81 mg PO DAILY enalapril maleate 20 mg PO DAILY 90 days levothyroxine 75 mcg PO DAILY 90 days multivitamin 1 tab PO DAILY omega-3 fatty acids (Fish Oil Concentrate) 1,200 mg PO DAILY Do you need a note to return to daycare/school/sports/work: No HPI [facility] G0439 HPI Details History - The patient is an 84-year-old female p resenting for a Medicare wellness visit and regular follow-up. - Reports a history of high blood pressu re readings during office visits, although blood pressure is noted to be well-controlled at home with readings mostly in the 120s. - Denies any lightheadedness or dizzines s. - No new concerns; reports usual aches a nd pains which are managed with Tylenol. - Last mammogram and colonoscopy procedu res have been discontinued. - Immunizations are noted to be out date t; denies needing tetanus, shingles, or new pneumonia vaccines. Patient declined vaccinations - Patient is due for blood work, previou monserrat done at the end of October. - Reports using hearing aids effectively ; denies issues with hearing. Medical History: - Essential Hypertension/white coat hype rtension - Diabetes Mellitus - hypothyroidism Medications: - Amlodipine 10 mg for hypertension - Enalapril 20 mg for hypertension - Levothyroxine 75 mg for hypothyroidism - Tylenol as needed for aches and pains Social History: - Lives alone and manages her own grocer ies, finances, and full activities of daily living independently. - Denies urine incontinence and is still able to drive. Problem List - Essential Hypertension - Diabetes Mellitus - labile hypertension - hypothyroidism - osteoarthritis multiple joints - osteoporosis/patient has stopped going to endo - DNR Patient Instructions - Continue taking current medications as prescribed. - Attend the lab for a blood test as the order is already in the system. - Book the next Medicare wellness appoin tment and follow-up in July. - Ensure immunizations needed are kept u p to date and fill out healthcare proxy forms. - If sustaining a cut from a dirty or ru sty object, seek advice on tetanus prophylaxis. Since you are outdated and do not want vaccine today Review of Systems - General: No fever no chills - Neurological: No headaches no dizziness - Ear nose throat: No sore throat no hearing difficulty no ear pain - Cardiovascular: No syncope, no chest pain, no palpitations - Gastrointestinal: No nausea vomiting or diarrhea - Endocrine: No polyuria polydipsia no heat intolerance - Genitourinary: No dysuria , no blood in urine Physical Exam - General: No acute distress - HEENT: No acute findings - Neck: Supple - Respiratory system: Able to talk in f ull sentences, no audible wheeze - Cardiovascular: S1-S2 regular in rate and rhythm - Gastrointestinal: No pain - Extremities: No new findings - 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: Alert awake oriented x3 motor se nsory intact - Skin: Normal turgor PFSH Medical History Diet-controlled diabetes mellitus Vitamin D deficiency Hypothyroidism Hyperparathyroidism Osteoporosis Surgical History History of laparoscopic cholecystectomy (01/16/25) Hx of cataract surgery Hx of tubal ligation History of hip surgery Social History Housing: Apartment Are you a primary behavioral health care manager to a significant other at home: No Do you presently have visiting nurse or other home services: No Alcohol intake: never Patient Tobacco Use Status: Never used Tobacco e-Cigarette/Vaping Use: Never Used service: No Current occupational status: retired Cognitive needs: No Hearing needs: No Vision needs: No Questionnaire Medicare Wellness Checkup What is your age?: 80 or older What gender do you identify with?: female During the past 4 weeks, how much have you been bothered by emotional problems such as feeling anxious, depressed, irritable, sad or downhearted, and blue?: not at all During the past 4 weeks, has your physical & emotional health limited your social activities with family, friends, neighbors, or groups?: not at all During the past 4 weeks, how much bodily pain have you generally had?: very mild pain During the past 4 weeks, was someone available to help you if you needed & wanted help?: yes, as much as I wanted During the past 4 weeks, what was the hardest physical activity you could do for at least 2 minutes?: moderate Can you get to places out of walking distance without help? (For eg., can you travel alone on buses, taxis or drive your car?): Yes Can you go shopping for groceries or clothes without someone's help?: Yes Can you prepare your own meals?: Yes Can you do your housework without help?: Yes Because of any health problems, do you need the help of another person with your personal care needs such as eating, bathing, dressing or getting around the house?: No Can you handle your own money without help?: Yes During the past 4 weeks, how would you rate your health in general?: very good During the past 4 weeks how have things been going for you?: pretty well Are you having difficulties driving your car?: no Do you always fasten your seat belt when you are in a car?: yes, usually During past 4 weeks, have you been bothered by the following: never: Sexual problems?, Trouble eating well? and Problems using the telephone?, seldom: Falling or dizzy when standing up and Teeth or denture problems? and sometimes: Tiredness or fatigue? Have you fallen 2 or more times in the past year?: No Are you afraid of falling?: No Are you a smoker?: no During the past 4 weeks, how many drinks of wine, beer, or other alcoholic beverages did you have?: no alcohol at all Do you exercise for about 20 minutes 3 or more times a week?: yes, most of the time Have you been given information to help with the following?: yes: Hazards in your house that might hurt you? and yes: Keeping track of your medications? How often do you have trouble taking medicines the way you have been told to take them?: I always take medicine as prescribed How confident are you that you can control & manage most of your health problems?: very confident What is your race?: White Mini Mental State Exam (MMSE) Orientation What is the (year) (season) (date) (day) (month)?: year, season, date, day and month Where are we (state) (county) (town or city) (hospital) (floor)?: state, county, town or city, hospital/clinic and floor Score Score: 10 Activity of Daily Living Bathing - sponge bath, tub bath or shower: receives no assistance (gets in/out by self, if usual bathing means Dressing - getting clothes from closets & drawers, including inner/outer garments & fasteners.: gets clothes & gets completely dressed without help Toileting - going to the 'toilet room' for urine/bowel elimination & cleaning self/arranging clothes: goes to toilet room, cleans self, arranges clothes without help Transfer: moves in & out of bed and chair without help (may use support object) Continence: controls urination/bowel movements completely by self Feeding: feeds self without help Total Score: 0 Information obtained from: patient Using telephone: independent Traveling: independent Shopping: independent Preparing meals: independent Housework: independent Taking medicine: independent Managing money: independent PHQ-9 Over the last 2 weeks, how often have you been bothered by any of the following problems? 1. Little interest or pleasure in doing things: not at all 2. Feeling down, depressed, or hopeless: not at all 3. Trouble falling or staying asleep, or sleeping too much: not at all 4. Feeling tired or having little energy: not at all 5. Poor appetite or overeating: not at all 6. Feeling bad about yourself - or that you are a failure or have let yourself or your family down: not at all 7. Trouble concentrating on things, such as reading the newspaper or watching television: not at all 8. Moving or speaking so slowly that other people could have noticed. Or the opposite - being so fidgety or restless that you have been moving around a lot more than usual: not at all 9. Thoughts that you would be better off or of hurting yourself in some way: not at all Total score: 0 Depression Screening Interpretation: Negative Depression Screening Done: Yes 15177 - PHQ-9 Billing: Yes Source: Developed by Drs. Julio Cesar Betts, Jojo Ivan, Jaison Bahena and colleagues, with an educational zain from [employer]. Physical Exam Vital Signs: Last Vital Signs Pulse 80 03/20/25 10:11 BP 170/68 H 03/20/25 10:11 Pulse Ox 98 03/20/25 10:11 Oxygen Delivery Method Room Air 03/20/25 10:11 BMI result Body Mass Index 29.7 Assessment & Plan Assessment & Plan (1) Medicare annual wellness visit, subsequent: Code(s): Z00.00 - Encounter for general adult medical examination without abnormal findings (2) Hypertension, essential: Code(s): I10 - Essential (primary) hypertension (3) Lipid disorder: Code(s): E78.9 - Disorder of lipoprotein metabolism, unspecified (4) Elevated blood pressure reading: Code(s): R03.0 - Elevated blood-pressure reading, without diagnosis of hypertension (5) Diabetes 1.5, managed as type 2: Code(s): E13.9 - Other specified diabetes mellitus without complications (6) Hypothyroidism: Code(s): E03.9 - Hypothyroidism, unspecified Qualifiers: Hypothyroidism type: unspecified Qualified Code(s): E03.9 - Hypothyroidism, unspecified (7) Osteoporosis: Code(s): M81.0 - Age-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 Qualifiers: Osteoporosis type: age-related Presence of current pathological frac ture: without current pathological fracture Qualified Code(s): M81.0 - Age- 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 Plan History - The patient is an 84-year-old female presenting for a Medicare wellness visit and regular follow-up. - Reports a history of high blood pressure readings during office visits, although blood pressure is noted to be well-controlled at home with readings mostly in the 120s. - Denies any lightheadedness or dizziness. - No new concerns; reports usual aches and pains which are managed with Tylenol. - Last mammogram and colonoscopy procedures have been discontinued. - Immunizations are noted to be out datet; denies needing tetanus, shingles, or new pneumonia vaccines. Patient declined vaccinations - Patient is due for blood work, previously done at the end of October. - Reports using hearing aids effectively; denies issues with hearing. Medical History: - Essential Hypertension/white coat hypertension - Diabetes Mellitus - hypothyroidism Medications: - Amlodipine 10 mg for hypertension - Enalapril 20 mg for hypertension - Levothyroxine 75 mg for hypothyroidism - Tylenol as needed for aches and pains Social History: - Lives alone and manages her own groceries, finances, and full activities of daily living independently. - Denies urine incontinence and is still able to drive. Problem List - Essential Hypertension - Diabetes Mellitus - labile hypertension - hypothyroidism - osteoarthritis multiple joints - osteoporosis/patient has stopped going to endo - DNR Patient Instructions - Continue taking current medications as prescribed. - Attend the lab for a blood test as the order is already in the system. - Book the next Medicare wellness appointment and follow-up in July. - Ensure immunizations needed are kept up to date and fill out healthcare proxy forms. - If sustaining a cut from a dirty or tramaine object, seek advice on tetanus prophylaxis. Since you are outdated and do not want vaccine today Orders: Orders Complete Blood Count Auto Diff Today E03.9 - Hypothyroidism, unspecified, E13.9 - Other specified diabetes mellitus without complications, E66.09 - Other obesity due to excess calories, E66.811 - Obesity, class 1, E78.9 - Disorder of lipoprotein metabolism, unspecified, I10 - Essential (primary) hypertension, M81.0 - Age-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, R03.0 - Elevated blood-pressure reading, without diagnosis of hypertension, Z68.30 - Body mass index [BMI] 30.0-30.9, adult Comprehensive Met. Panel Today E03.9 - Hypothyroidism, unspecified, E13.9 - Other specified diabetes mellitus without complications, E66.09 - Other obesity due to excess calories, E66.811 - Obesity, class 1, E78.9 - Disorder of lipoprotein metabolism, unspecified, I10 - Essential (primary) hypertension, M81.0 - Age-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, R03.0 - Elevated blood-pressure reading, without diagnosis of hypertension, Z68.30 - Body mass index [BMI] 30.0-30.9, adult Hemoglobin A1c Today E13.9 - Other specified diabetes mellitus without complications LDL Cholesterol Direct Today E03.9 - Hypothyroidism, unspecified, E13.9 - Other specified diabetes mellitus without complications, E66.09 - Other obesity due to excess calories, E66.811 - Obesity, class 1, E78.9 - Disorder of lipoprotein metabolism, unspecified, I10 - Essential (primary) hypertension, M81.0 - Age- 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, R03.0 - Elevated blood-pressure reading, without diagnosis of hypertension, Z68.30 - Body mass index [BMI] 30.0-30.9, adult TSH reflex Free T4 Today E03.9 - Hypothyroidism, unspecified, E13.9 - Other specified diabetes mellitus without complications, E66.09 - Other obesity due to excess calories, E66.811 - Obesity, class 1, E78.9 - Disorder of lipoprotein metabolism, unspecified, I10 - Essential (primary) hypertension, M81.0 - Age- 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, R03.0 - Elevated blood-pressure reading, without diagnosis of hypertension, Z68.30 - Body mass index [BMI] 30.0-30.9, adult Quality Reporting (2019) Depression/Bipolar (159/160/161/177) PHQ-9: Total score: 0 Coding Level of Care Code Medicare Subsequent (G0439) Est Pt Level 3 (52881) Diagnoses Medicare annual wellness visit, subsequent Z00.00 Hypertension, essential I10 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 Elevated blood pressure reading R03.0 Diabetes 1.5, managed as type 2 E13.9 Hypothyroidism, unspecified type E03.9 Hypothyroidism type: unspecified Age-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 M81.0 Osteoporosis type: age-related Presence of current pathological fracture: without current pathological fr acture Additional Codes PHQ-9 - 30074 - PHQ-9 Billing: Yes ([id number])
--- OUTSIDE RECORDS SUMMARY | 2025-03-20 10:39 | XMS_ITS | Patient Health Record ---
Author Organization [facility] Address 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
--- OUTSIDE RECORDS SUMMARY | 2025-03-20 10:39 | XMS_ITS | Clinical Summary ---
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
== END 2025-03-20 10:40 | disposition home or self-care (01) ==
LOC: HO.HMCC 10:06
PROVIDERS: PCP Internal Medicine; Visit Provider Internal Medicine
DX: Z00.00 Encounter for general adult medical examination without abnormal findings (principal); I10 Essential (primary) hypertension; E13.9 Other specified diabetes mellitus without complications; E78.9 Disorder of lipoprotein metabolism, unspecified; R03.0 Elevated blood-pressure reading, without diagnosis of hypertension; E03.9 Hypothyroidism, unspecified; M81.0 Age-related osteoporosis without current pathological fracture

== ENCOUNTER 2025-03-20 10:05 | Outpatient (REF) | payer MEDICARE, SELFPAY ==
[2025-03-20 13:43] LABS: MANUAL DIFF FLAG NO
[2025-03-20 13:46] LABS: Hematocrit 41.2 % (37.0-47.0); Hemoglobin 13.5 g/dl (12.0-16.0); Imm Gran Abs Auto 0.04 X10*3/uL (0.00-0.03); Imm Gran Pct Auto 0.3 % (0.0-0.4); Lymphocytes Absolute Auto 4.8 X10*3/uL (1.2-4.9); Mean Corpuscular HGB Conc 32.8 g/dl (31.0-35.0); Mean Corpuscular Hemoglobin 28.4 pg (27.0-33.0); Mean Corpuscular Volume 86.7 fL (80.0-98.0); NRBC Abs Auto 0.000 X10*3/uL (0.0-0.012); NRBC Pct Auto 0.0 /100WBC (0.0-0.2); Platelet Count 308 X10*3/uL (160-400); Red Blood Count 4.75 X10*6/uL (4.20-5.50); White Blood Count 13.4 X10*3/uL (4.8-10.8)
[2025-03-20 14:02] LABS: Alanine Aminotransferase 9 U/L (0-31); Albumin Level 4.7 g/dL (3.5-5.0); Alkaline Phosphatase 93 U/L (39-117); Anion Gap 14 (12-20); Aspartate Amino Transferase 31 U/L (5-31); Blood Urea Nitrogen 32 mg/dL (9-16); Calcium 10.7 mg/dL (8.4-10.2); Carbon Dioxide 23 mmol/L (22-29); Chloride 105 mmol/L (96-108); Estimated Glomerular Filt Rate 53; Hemoglobin A1C 142.0034 umol/L; Potassium 4.8 mmol/L (3.3-5.1); Sodium 137 mmol/L (135-145); Total Hemoglobin (HGBA1C) 3552.2304 umol/L; Total Protein 8.5 g/dL (6.5-8.0)
== END 2025-03-20 10:06 | disposition home or self-care (01) ==
LOC: HO.HMGCLDS 10:05
PROVIDERS: PCP Internal Medicine; Visit Provider Internal Medicine
DX: Z00.00 Encounter for general adult medical examination without abnormal findings (principal); I10 Essential (primary) hypertension; E13.9 Other specified diabetes mellitus without complications; E78.9 Disorder of lipoprotein metabolism, unspecified; E03.9 Hypothyroidism, unspecified; M81.0 Age-related osteoporosis without current pathological fracture; E66.811 Obesity, class 1; Z68.30 Body mass index [BMI] 30.0-30.9, adult; Z98.51 Tubal ligation status; Z79.82 Long term (current) use of aspirin; Z79.890 Hormone replacement therapy; Z79.899 Other long term (current) drug therapy
CPT/HCPCS: 36415; 80053; 83036; 83721; 84443; 85025; 96127

== ENCOUNTER 2025-07-12 08:40 | Outpatient (AMB) | payer MEDICARE, SELFPAY ==
[2025-07-12 08:44] VITALS: BP 180/80; PULSE 80; O2SAT 98; BMI 29.3
--- NOTE | 2025-07-12 08:44 | MHC.PC.OV ---
Vital Signs 07/12/25 08:44 07/12/25 09:05 Height 4 ft 11 in Weight 145 lb BMI 29.3 BP 180/80 H 150/80 H Blood Pressure Location Lt brachial Position Sitting Pulse 80 Pulse Source Pulse Oximeter Pulse Oximetry (%) 98 Intake Visit Reasons: 4m follow up Allergies amoxicillin Allergy (Unknown, Verified 07/12/25 08:45) rash lisinopril (Zestril) Allergy (Unknown, Verified 07/12/25 08:45) tongue swelling penicillin V Allergy (Unknown, Verified 07/12/25 08:45) rash Medication List - Last Reconciled 07/12/25 by Howard Johnson MD amlodipine 10 mg PO DAILY 90 days ascorbic acid (vitamin C) 1,000 mg PO DAILY aspirin 81 mg PO DAILY enalapril maleate 20 mg PO DAILY 90 days levothyroxine 75 mcg PO DAILY 90 days multivitamin 1 tab PO DAILY omega-3 fatty acids (Fish Oil Concentrate) 1,200 mg PO DAILY Tobacco use date assessed: 10/09/24 Fall risk assessment: No Falls in past year Last assessed Fall Risk: 07/12/25 Dental Screening Dental Screen Date: 10/09/24 HPI 4m follow up HPI Details History of Present Illness The patient is an 85-year-old female presenting for a regular follow-up appointment and evaluation of back pain. Back Pain: - The patient reports experiencing severe back pain for the last two and a half weeks, which was incapacitating and kept her in bed for four days. - The pain is located in the mid-back and radiates to the right side. - She has a history of similar pain a few years ago, for which an X-ray was negative, and the symptoms resolved without further follow-up. - Pqpz-ccf-epthtem analgesics such as Tylenol, Motrin, and Advil did not provide relief; a heating pad and a topical cream offered some help. - Previous lidocaine patches for hip surgery were ineffective, and she has not tried them for this pain. - A kidney ultrasound in January and a CT scan in March of the previous year showed no nephrolithiasis or hydronephrosis, though simple bilateral cysts were noted. - The pain has been easing up daily since last Tuesday. Hypertension: - The patient's blood pressure in the office was elevated at 180/80 mmHg. - At home, her blood pressure readings are typically normal, with systolic values around 109-124 mmHg. - The current high reading is thought to be due to pain and associated anxiety. - She takes amlodipine 10 mg and lisinopril 20 mg for her blood pressure. Osteopenia: - The patient acknowledged a diagnosis of osteoporosis, but records from October last year indicate osteopenia with a score of -2.1. - She is not currently on any medication for this condition. - She has not had a bone density scan this year and they are typically done every other year. Type 2 Diabetes Mellitus: - The patient has diet-controlled diabetes. - Her most recent A1c was 6.0. Hypothyroidism: - The patient is prescribed levothyroxine 75 mcg for hypothyroidism. 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 - Family Support: Her daughter provided assistance during her period of incapacitation. Diagnostic Results: - Labs (March last year): A1c was 6.0. - Imaging (Ultrasound of kidneys, January last year): Did not show any stones. - Imaging (CT Scan, March last year): Showed no adrenal mass, nephrolithiasis, or hydronephrosis; noted simple bilateral cysts. - Imaging (Bone Density Scan, October last year): Showed osteopenia with a score of -2.1. Problem List - Back pain - Essential Hypertension - Osteopenia - Hypothyroidism - Type 2 Diabetes Mellitus, diet-controlled - Anxiety - Health Maintenance: Discussed need for mammogram and bone density scan. Plan - An X-ray of the thoracic spine will be ordered to investigate the back pain, considering osteopenia as a possible cause of microfractures and nerve compression. - It is recommended that the patient try alpl-dlw-crrzwop lidocaine patches for pain management. - A referral to a mobile paint specialist was offered, but the patient declined at this time as her symptoms are improving. - Blood pressure will continue to be managed with current medications, as the elevated in-office reading is attributed to pain and anxiety. - Diabetes will continue to be monitored with diet control. - The patient will need to have blood tests done before her next visit, and the order will be placed in the system. - Health screenings, including mammogram and bone density scan, were discussed. - Follow-up is scheduled in four months. - The patient reports having all necessary medications at this time. Review of Systems - General: No fever no chills - Neurological: No headaches no dizziness - Ear nose throat: No sore throat no hearing difficulty no ear pain - Cardiovascular: No syncope, no chest pain, no palpitations - Gastrointestinal: No nausea vomiting or diarrhea - Endocrine: No polyuria polydipsia no heat intolerance - Genitourinary: No dysuria , no blood in urine Physical Exam General: No acute distress HEENT: No acute findings Neck: Supple Respiratory system: Able to talk in full sentences, no audible wheeze Cardiovascular: S1-S2 regular in rate and rhythm Gastrointestinal: Pain present in mid back, right side Back : no pain with percussion throracic spine or CVA Extremities: No new findings GALLEY HAND: Alert awake oriented x3 motor intact Skin: Normal turgor PFSH Medical History Diet-controlled diabetes mellitus Vitamin D deficiency Hypothyroidism Hyperparathyroidism Osteoporosis Surgical History History of laparoscopic cholecystectomy (01/16/25) Hx of cataract surgery Hx of tubal ligation History of hip surgery Social History Housing: Apartment Are you a primary home health care respiratory therapist to a significant other at home: No Do you presently have visiting nurse or other home services: No Alcohol intake: never Patient Tobacco Use Status: Never used Tobacco e-Cigarette/Vaping Use: Never Used service: No Current occupational status: retired Cognitive needs: No Hearing needs: No Vision needs: No Questionnaire PHQ-9 Over the last 2 weeks, how often have you been bothered by any of the following problems? 1. Little interest or pleasure in doing things: not at all 2. Feeling down, depressed, or hopeless: not at all 3. Trouble falling or staying asleep, or sleeping too much: not at all 4. Feeling tired or having little energy: not at all 5. Poor appetite or overeating: not at all 6. Feeling bad about yourself - or that you are a failure or have let yourself or your family down: not at all 7. Trouble concentrating on things, such as reading the newspaper or watching television: not at all 8. Moving or speaking so slowly that other people could have noticed. Or the opposite - being so fidgety or restless that you have been moving around a lot more than usual: not at all 9. Thoughts that you would be better off or of hurting yourself in some way: not at all Total score: 0 Depression Screening Interpretation: Negative Depression Screening Done: Yes 24395 - PHQ-9 Billing: Yes Source: Developed by Drs. Julio Cesar Betts, Jojo Ivan, Jaison Bahena and colleagues, with an educational zain from [employer]. Thrive Questionnaire Date Thrive assessed: 10/09/24 I am a: Patient What is your living situation today?: I have a steady place to live Within the past 12 months, did the food you bought not last and you didn't have the money to get more?: I choose not to answer this question Within the past 12 months, did you worry whether your food would run out before you got money to buy more?: Never true Do you have trouble paying for medicines?: No Do you have trouble getting transportation to medical appointments?: No Do you have trouble paying your heating and electricity bill?: No Do you have trouble taking care of your child, family member or friend?: No Do you have trouble with day-to-day activities such as bathing, preparing meals, shopping, managing finances, etc.?: No Are you currently unemployed and looking for a job?: No Are you interested in more education?: No Please select the resources that you would like help with: None Currently or been in a relationship where the following occur: No concerns reported THRIVE Score: 0 DAVID-7 AMB Questionnaire DAVID-7 Date DAVID - 7 assessed: 10/09/24 Source: Developed by Drs. Julio Cesar Betts, Jojo Ivan, Jaison Bahena and colleagues, with an educational zain from [employer]. Physical exam (Primary Care) Vital Signs: Last Vital Signs Pulse 80 07/12/25 08:44 BP 150/80 H 07/12/25 09:05 Pulse Ox 98 07/12/25 08:44 BMI result Body Mass Index 29.3 Tobacco/Smoking Status: Tobacco use Status Tobacco use date assessed 10/09/24 07/12/25 08:45 Patient Tobacco Use Status Never used Tobacco 07/12/25 08:45 e-Cigarette/Vaping Use Never Used 07/12/25 08:45 PHQ-9: PHQ-9 Score PHQ-9: Total score 0 07/12/25 09:07 Depression Screening Interpretation: Negative Thrive Assessment: Date of Thrive Assessment Date Thrive assessed 10/09/24 07/12/25 08:45 Currently or been in a relationship where the following occur: No concerns reported Results AMB Hemoglobin A1c AMB Hemoglobin A1c 6.0 % Last Edit by Cosme Garcia CMA on 07/12/25 08:59 Results Reviewed Results Reviewed: Laboratory Last Values Hgb A1c (Clinic) 6.0 % (4.0-6.0) 07/12/25 08:59 Coding Level of Care Code Est Pt Level 4 (87342) Complex EM visit Add On G2211 Diagnoses Chronic right-sided thoracic back pain M54.6; G89.29 Chronicity: chronic Back pain laterality: right Hypertension, essential I10 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 Elevated blood pressure reading R03.0 Diabetes 1.5, managed as type 2 E13.9 Hypothyroidism, unspecified type E03.9 Hypothyroidism type: unspecified Additional Codes PHQ-9 - 60876 - PHQ-9 Billing: Yes ([id number]) Assessment & Plan Assessment & Plan (1) Thoracic back pain: Code(s): M54.6 - Pain in thoracic spine Category: Medical Qualifiers: Chronicity: chronic Back pain laterality: right Qualified Code(s): M54.6 - Pain in thoracic spine; G89.29 - Other chronic pain (2) Hypertension, essential: Code(s): I10 - Essential (primary) hypertension Category: Medical (3) Lipid disorder: Code(s): E78.9 - Disorder of lipoprotein metabolism, unspecified Category: Medical (4) Elevated blood pressure reading: Code(s): R03.0 - Elevated blood-pressure reading, without diagnosis of hypertension Category: Medical (5) Diabetes 1.5, managed as type 2: Code(s): E13.9 - Other specified diabetes mellitus without complications Category: Medical (6) Hypothyroidism: Code(s): E03.9 - Hypothyroidism, unspecified Category: Medical Qualifiers: Hypothyroidism type: unspecified Qualified Code(s): E03.9 - Hypothyroidism, unspecified Plan Back Pain: - The patient reports experiencing severe back pain for the last two and a half weeks, which was incapacitating and kept her in bed for four days. - The pain is located in the mid-back and radiates to the right side. - She has a history of similar pain a few years ago, for which an X-ray was negative, and the symptoms resolved without further follow-up. - Qskr-efi-tqxkrbf analgesics such as Tylenol, Motrin, and Advil did not provide relief; a heating pad and a topical cream offered some help. - Previous lidocaine patches for hip surgery were ineffective, and she has not tried them for this pain. - A kidney ultrasound in January and a CT scan in March of the previous year showed no nephrolithiasis or hydronephrosis, though simple bilateral cysts were noted. - The pain has been easing up daily since last Tuesday. Hypertension: - The patient's blood pressure in the office was elevated at 180/80 mmHg. - At home, her blood pressure readings are typically normal, with systolic values around 109-124 mmHg. - The current high reading is thought to be due to pain and associated anxiety. - She takes amlodipine 10 mg and lisinopril 20 mg for her blood pressure. Osteopenia: - The patient acknowledged a diagnosis of osteoporosis, but records from October of last year indicate osteopenia with a score of -2.1. - She is not currently on any medication for this condition. - She has not had a bone density scan this year and they are typically done every other year. Type 2 Diabetes Mellitus: - The patient has diet-controlled diabetes. - Her most recent A1c was 6.0. Hypothyroidism: - The patient is prescribed levothyroxine 75 mcg for hypothyroidism. 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 - Family Support: Her daughter provided assistance during her period of incapacitation. Diagnostic Results: - Labs (March year): A1c was 6.0. - Imaging (Ultrasound of kidneys, January last year): Did not show any stones. - Imaging (CT Scan, March last year): Showed no adrenal mass, nephrolithiasis, or hydronephrosis; noted simple bilateral cysts. - Imaging (Bone Density Scan, October year): Showed osteopenia with a score of -2.1. Problem List - Back pain - Essential Hypertension - Osteopenia - Hypothyroidism - Type 2 Diabetes Mellitus, diet-controlled - Anxiety - Health Maintenance: Discussed need for mammogram and bone density scan. Plan - An X-ray of the thoracic spine will be ordered to investigate the back pain, considering osteopenia as a possible cause of microfractures and nerve compression. - It is recommended that the patient try ljne-jxn-fdxkcbg lidocaine patches for pain management. - A referral to a mobile paint specialist was offered, but the patient declined at this time as her symptoms are improving. - Blood pressure will continue to be managed with current medications, as the elevated in-office reading is attributed to pain and anxiety. - Diabetes will continue to be monitored with diet control. - The patient will need to have blood tests done before her next visit, and the order will be placed in the system. - Health screenings, including mammogram and bone density scan, were discussed. - Follow-up is scheduled in four months. - The patient reports having all necessary medications at this time. Orders: Orders Complete Blood Count Auto Diff Today E03.9 - Hypothyroidism, unspecified, E13.9 - Other specified diabetes mellitus without complications, E78.9 - Disorder of lipoprotein metabolism, unspecified, I10 - Essential (primary) hypertension Vitamin D 25-OH (D2 and D3) Today E03.9 - Hypothyroidism, unspecified, E13.9 - Other specified diabetes mellitus without complications, E78.9 - Disorder of lipoprotein metabolism, unspecified, I10 - Essential (primary) hypertension Vitamin B12 Today E03.9 - Hypothyroidism, unspecified, E13.9 - Other specified diabetes mellitus without complications, E78.9 - Disorder of lipoprotein metabolism, unspecified, I10 - Essential (primary) hypertension AMB Hemoglobin A1c Today Z13.9 - Encounter for screening, unspecified XR thoracic spine 2V Today M54.6 - Pain in thoracic spine Hemoglobin A1c Today E03.9 - Hypothyroidism, unspecified, E13.9 - Other specified diabetes mellitus without complications, E78.9 - Disorder of lipoprotein metabolism, unspecified, I10 - Essential (primary) hypertension Comprehensive Met. Panel Today E03.9 - Hypothyroidism, unspecified, E13.9 - Other specified diabetes mellitus without complications, E78.9 - Disorder of lipoprotein metabolism, unspecified, I10 - Essential (primary) hypertension LDL Cholesterol Direct Today E03.9 - Hypothyroidism, unspecified, E13.9 - Other specified diabetes mellitus without complications, E78.9 - Disorder of lipoprotein metabolism, unspecified, I10 - Essential (primary) hypertension TSH reflex Free T4 Today E03.9 - Hypothyroidism, unspecified, E13.9 - Other specified diabetes mellitus without complications, E78.9 - Disorder of lipoprotein metabolism, unspecified, I10 - Essential (primary) hypertension Microalbumin, Random (w Creat) Today E03.9 - Hypothyroidism, unspecified, E13.9 - Other specified diabetes mellitus without complications, E78.9 - Disorder of lipoprotein metabolism, unspecified, I10 - Essential (primary) hypertension Magnesium Today E03.9 - Hypothyroidism, unspecified, E13.9 - Other specified diabetes mellitus without complications, E78.9 - Disorder of lipoprotein metabolism, unspecified, I10 - Essential (primary) hypertension
[2025-07-12 09:05] VITALS: BP 150/80
--- OUTSIDE RECORDS SUMMARY | 2025-07-12 09:17 | XMS_ITS | Patient Health Record ---
Author Organization [facility] Address [address] [place] [id number] Care Team Providers Care Customer Service Sales Consultant Name Role Phone Julio Cesar Bowen Unavailable [phone] Reason For Referral No Information Plan Of Treatment No Information
--- OUTSIDE RECORDS SUMMARY | 2025-07-12 09:17 | XMS_ITS | Encounter Summary ---
Author Organization [employer] Address [address] [place] [address] Care Team Providers Care Sharepoint Web Developer Name Role Phone Unavailable Primary Care Provider Unavailabl e Encounter Details Date Type Department Care Team (Latest Contact Info) Description 07/17/2020 Abstract C CONVERSIONS Dental, Provider, DDS Social [...]
--- OUTSIDE RECORDS SUMMARY | 2025-07-12 09:17 | XMS_ITS | Clinical Summary ---
Author Organization [employer] Address [address] [facility] [address] [place] [address] Care Team Providers Care Doula Name Role Phone Unavailable Primary Care Provider [...] 02/17/2018 02/17/2017, 02/03/2017 COVID-19 Vaccine ( season) 2025 09/10/2021, 01/07/2021, 12/17/2020 Influenza Vaccine (#1) 2025 [...] to complete this topic Insurance [facility]ARE [address] [facility] [address] [place]
--- OUTSIDE RECORDS SUMMARY | 2025-07-12 09:17 | XMS_ITS | Encounter Summary ---
Author Organization [employer] Address [address] [facility] [address] [place] [address] Care Team Providers Care Bee Farmer Name Role Phone Unavailable Primary Care Provider [...]
--- OUTSIDE RECORDS SUMMARY | 2025-07-12 09:17 | XMS_ITS | Encounter Summary ---
Author Organization [employer] [facility] Address [address] [facility] [address] [place] [address] Care Team Providers Care Laborer Orchard Name Role Phone Unavailable Primary Care Provider [...]
== END 2025-07-12 09:08 | disposition home or self-care (01) ==
LOC: HO.HMCC 08:41
PROVIDERS: PCP Internal Medicine; Visit Provider Internal Medicine
DX: M54.6 Pain in thoracic spine (principal); E13.9 Other specified diabetes mellitus without complications; G89.29 Other chronic pain; I10 Essential (primary) hypertension; E78.9 Disorder of lipoprotein metabolism, unspecified; R03.0 Elevated blood-pressure reading, without diagnosis of hypertension; E03.9 Hypothyroidism, unspecified; Z13.9 Encounter for screening, unspecified

== ENCOUNTER → 2025-07-12 08:40 | Outpatient (BNVA) | payer MEDICARE, SELFPAY | PROVIDERS: PCP Internal Medicine; Visit Provider Internal Medicine | DX: M54.6 Pain in thoracic spine (principal); G89.29 Other chronic pain; I10 Essential (primary) hypertension; E78.9 Disorder of lipoprotein metabolism, unspecified; R03.0 Elevated blood-pressure reading, without diagnosis of hypertension; E03.9 Hypothyroidism, unspecified; E13.9 Other specified diabetes mellitus without complications; Z13.31 Encounter for screening for depression | CPT/HCPCS: 83036; 96127; 99212 ==